=== PATIENT | male | born 1955 | race African-American/Black ===

== ENCOUNTER 2017-10-19 09:00 | Emergency (ER) | payer SELFPAY ==
[2017-10-19 09:07] VITALS: TEMP 98.5; BMI 17.3
--- NOTE | 2017-10-19 11:23 | PDOC ---
History of Present Illness - General Chief Complaint: Abscess Boil Stated Complaint: ABSCESS BOIL Time Seen by Provider: 10/19/17 11:08 History Source: Patient - History of Present Illness Initial Comments: 10/19/17 11:20 Patient with history of hypertension and recurrent abscesses present with complain of one-month history of absent to perineal area which has been draining for the past 3 days. Patient with history of pilonidal cyst 15 years ago requiring surgery. Denies history of diabetes or HIV. Denies fever, constipation, problem with bowel movement or any other symptoms Timing/Duration: other (1 month) Past History - Past Medical History Allergies/Adverse Reactions: Allergies Allergy/AdvReac Type Severity Reaction Status Date / Time No Known Allergies Allergy Verified 10/19/17 09:31 Home Medications: Ambulatory Orders Losartan Potassium [Cozaar -] 50 mg PO DAILY 12/29/15 Clindamycin [Cleocin -] 300 mg PO TID #21 capsule 10/19/17 Ibuprofen 800 mg PO Q8H PRN #20 tablet 10/19/17 Asthma: Yes COPD: No DVT: No HTN: Yes - Immunization History Immunization Up to Date: Yes - Suicide/Smoking/Psychosocial Hx Smoking Status: No Smoking History: Current every day smoker Have you smoked in the past 12 months: Yes Number of Cigarettes Smoked Daily: 10 Information on smoking cessation initiated: Yes 'Breaking Loose' booklet given: 10/19/17 Hx Alcohol Use: No Drug/Substance Use Hx: No Substance Use Type: None Review of Systems - Review of Systems Able to Perform ROS?: Yes Is the patient limited Vietnamese proficient: No Constitutional: No: Chills, Fever, Malaise HEENTM: No: Symptoms Reported Respiratory: No: Symptoms reported Cardiac (ROS): No: Symptoms Reported ABD/GI: No: Abd. Pain w/ defecation, Constipated, Nausea, Rectal Bleeding, Abdominal cramping, Tarry Stools : No: Symptoms Reported Integumentary: Yes: Lumps (abscess to b/l gluteal), Other (draining abscess to b /l gluteal areas) All Other Systems: Reviewed and Negative *Physical Exam - Vital Signs Last Vital Signs Temp Pulse Resp BP Pulse Ox 98.5 F 104 H 19 116/70 99 10/19/17 09:05 10/19/17 09:05 10/19/17 09:05 10/19/17 09:05 10/19/17 09:05 - Physical Exam Comments: 10/19/17 11:25 GENERAL: Well developed, well nourished. Awake and alert. No acute distress. NECK: Supple. Full ROM. CARDIOVASCULAR: Regular rate and rhythm. No murmurs, rubs, or gallops. PULMONARY: No evidence of respiratory distress. ABDOMINAL: Soft. Non-tender. Non-distended. No rebound or guarding. No organomegaly. Normoactive bowel sounds. SKIN: 3cm hard induration to b/l gluteal close to perineal area with mild drainage from left gluteal abscess. no erythema to area. scar tissue from previous surgery over sacral area Warm and dry. NEUROLOGICAL: Alert, awake, appropriate. PSYCHIATRIC: Cooperative. Good eye contact. Appropriate mood and affect. General Appearance: Yes: Nourished, Appropriately Dressed. No: Apparent Distress Procedures - Incision and Drainage I&D Site: Left: Perirectal (3cm tracking abscess) Betadine cleansed: Yes Anesthesia: 2% Lidocaine Volume(ml): 3 Blade Size: 11 Iodinated Packin in Plain Packing: Yes Complications: none Dressing: Yes (4 X4 gauze and adhesive tape) Progress: 10/19/17 12:54 Abscess to bilateral perirectal area clean with Betadine. Both abscesses infiltrated with 2 mL 2% lidocaine. Incision made into abscess with #11 blade. Purulent discharge from abscess from sites. Left perirectal abscess packed with 1 inch wound packing. Wound covered with 4 x 4 gauze and adhesive tape. Wound culture taken .Tolerated procedure well Medical Decision Making - Medical Decision Making 10/19/17 11:28 Patient with history of recurrent abscesses and hypertension presenting with complain of one-month history of abscess to bilateral gluteal area.exam significant for 3cm abscesses to bilateral gluteal area close to nazanin-rectal area. No erythema to site. HIV labs ordered due to recurrent abscesses to rule out HIV. 10/19/17 12:51 I&D of bilateral abscess on perirectal area done without complication. Wound packing placed in left perirectal area abscess. Right perirectal abscess doesn' t have enough cavity for wound packing. Patient given IM clindamycin in the ED and Toradol IM for pain. Patient be discharged home on clindamycin PO ABx for a week. Patient to follow-up in 3 days for packing removal and follow-up with general surgery clinic on October [address] Franko Mendoza from surgical team *DC/Admit/Observation/Transfer Diagnosis at time of Disposition: Perirectal abscess - Discharge Dispostion Disposition: HOME Condition at time of disposition: Stable Decision to Admit order: No - Prescriptions Prescriptions: Clindamycin [Cleocin -] 300 mg PO TID #21 capsule Ibuprofen 800 mg PO Q8H PRN #20 tablet PRN Reason: pain - Referrals Referrals: Franko Mendoza MD [Staff Physician] - - Patient Instructions Printed Discharge Instructions: DI for Incision and Drainage of a Skin Abscess Additional Instructions: take medications as prescribed. apply warm compress to abscess area 2-3 times/ day for 5-10mins . come back to ED in 3 days for packing removal. Follow-up apt with Dr. Franko Mendoza surgery clinic on Tuesday, call [phone] to confirm times with referred surgery clinic - Post Discharge Activity
[2017-10-19] MEDS ORDERED: CLINDAMYCIN 600MG PREMIX IVPB 600 MG/50 ML BAG IVPB ONE ×2 (11:41→12:43)
[2017-10-19] MEDS ORDERED: LIDOCAINE HCL 2% (20ML MULTI-DOSE VIAL) NR ONE (11:50)
--- NOTE | 2017-10-19 11:58 | PDOC ---
*Physical Exam - Vital Signs Last Vital Signs Temp Pulse Resp BP Pulse Ox 98.5 F 104 H 19 116/70 99 10/19/17 09:05 10/19/17 09:05 10/19/17 09:05 10/19/17 09:05 10/19/17 09:05 - Physical Exam Comments: 10/19/17 11:58 The patient was examined by [ARISTEO Machado] under my direct supervision. I personally evaluated the patient. I concur with the above findings and the plan of care.
[2017-10-19] MEDS ORDERED: KETOROLAC TROMETHAMINE 60 MG/2 ML VIAL IM ONE (12:42)
[2017-10-19] MEDS ORDERED: KETOROLAC TROMETHAMINE 60 MG/2 ML VIAL ONE (12:49)
[2017-10-19 13:09] VITALS: BP 135/92; PULSE 90
== END 2017-10-19 13:30 | disposition home or self-care (01) ==
LOC: JER 09:00
PROC: 0H99XZZ Drainage of Perineum Skin, External Approach (ICD-10-PCS; principal; 2017-10-19)
PROC: 3E03329 Introduction of Other Anti-infective into Peripheral Vein, Percutaneous Approach (ICD-10-PCS; 2017-10-19)
PROC: 3E0233Z Introduction of Anti-inflammatory into Muscle, Percutaneous Approach (ICD-10-PCS; 2017-10-19)
DX: L02.215 Cutaneous abscess of perineum (principal); F17.210 Nicotine dependence, cigarettes, uncomplicated; J45.909 Unspecified asthma, uncomplicated; I10 Essential (primary) hypertension
CPT/HCPCS: 36415; 87070; 87076; 87077; 87186; 87205; 87389; 99282-25

== ENCOUNTER 2018-06-10 13:15 | Observation (INO) | payer MEDICARE ==
[2018-06-10] MEDS ORDERED: SODIUM CHLORIDE 2,000 ML IV STA (13:40)
--- NOTE | 2018-06-10 13:44 | PDOC ---
History of Present Illness - General Chief Complaint: Diarrhea Stated Complaint: DIARRHEA Time Seen by Provider: 06/10/18 13:38 - History of Present Illness Initial Comments: 06/10/18 13:40 62 yo M with h/o heroin addiction with withdrawal, HTN who p/w diarrhea. Patient reports 5 days of loose, watery stools, with absent BPR x 6 per day. Also endorses decreased appetite, and PO intake. Denies recent sick contacts, change in diet, travels/hiking/camping. No other complaints. Denies medication for symptom control. Reports wt. loss 30 pounds in 3 months. Patient denies AQUINO, vision change, palpitations, cough, wheezing, orthopena, PND , leg swelling/pain, N/V, F,C, CP, SOB, urinary complaints, hematuria, BPR, abdominal pain, constipation, lightheadedness, weakness, sensory changes. PMHx: as noted above ROS: as noted SHx: Distant heroin use. Denies h/o IVDA. H/o tobacco use daily. Allergies: NKDA PMD: Napqvi Past History - Past Medical History Allergies/Adverse Reactions: Allergies Allergy/AdvReac Type Severity Reaction Status Date / Time No Known Allergies Allergy Verified 06/10/18 13:19 Home Medications: Ambulatory Orders Losartan Potassium [Cozaar -] 50 mg PO DAILY 12/29/15 Asthma: Yes COPD: No DVT: No HTN: Yes - Immunization History Immunization Up to Date: Yes - Suicide/Smoking/Psychosocial Hx Smoking Status: No Smoking History: Current every day smoker Have you smoked in the past 12 months: Yes Number of Cigarettes Smoked Daily: 10 Information on smoking cessation initiated: No 'Breaking Loose' booklet given: 10/19/17 Hx Alcohol Use: No Drug/Substance Use Hx: No Substance Use Type: None Review of Systems - Review of Systems Comments:: 06/10/18 13:42 GENERAL/CONSTITUTIONAL: No fever or chills. No weakness. HEAD, EYES, EARS, NOSE AND THROAT: No change in vision. No ear pain or discharge. No sore throat. CARDIOVASCULAR: No chest pain or shortness of breath RESPIRATORY: No cough, wheezing, or hemoptysis. GASTROINTESTINAL: + diarrhea. No nausea, vomiting, constipation. GENITOURINARY: No dysuria, frequency, or change in urination. MUSCULOSKELETAL: No joint or muscle swelling or pain. No neck or back pain. SKIN: No rash NEUROLOGIC: No headache, vertigo, loss of consciousness, or change in strength/ sensation. ENDOCRINE: +abnormal weight change. No increased thirst. HEMATOLOGIC/LYMPHATIC: No anemia, easy bleeding, or history of blood clots. ALLERGIC/IMMUNOLOGIC: No hives or skin allergy. *Physical Exam - Vital Signs Last Vital Signs Temp Pulse Resp BP Pulse Ox 97.8 F 139 H 22 H 90/60 98 06/10/18 13:26 06/10/18 13:26 06/10/18 13:26 06/10/18 13:06/10/18 13:26 - Physical Exam Comments: 06/10/18 13:42 GENERAL: Awake, alert, and fully oriented, in no acute distress HEAD: No signs of trauma, normocephalic, atraumatic EYES: PERRLA, EOMI, sclera anicteric, conjunctiva clear ENT: Dry mucosu membranes, conjuctival pallor. Auricles normal inspection, hearing grossly normal, nares patent, oropharynx clear without exudates. NECK: Normal ROM, supple, no lymphadenopathy, JVD, or masses LUNGS: No distress, speaks full sentences, clear to auscultation bilaterally HEART: Regular rate and rhythm, normal S1 and S2, no murmurs, rubs or gallops, peripheral pulses normal and equal bilaterally. ABDOMEN: hyperactive bowel sounds. Soft, nontender, NDS. No guarding, no rebound. No masses. Neg CVA ttp. EXTREMITIES : Normal inspection, Normal range of motion, no edema. No clubbing or cyanosis. NEUROLOGICAL: Cranial nerves II through XII grossly intact. Normal speech, normal gait, no focal sensorimotor deficits SKIN: Warm, Dry, normal turgor, no rashes or lesions noted ED Treatment Course - LABORATORY CBC & Chemistry Diagram: 06/10/18 13:30 06/10/18 13:30 Medical Decision Making - Medical Decision Making 06/10/18 13:55 62 yo M with h/o heroin addiction with withdrawal, HTN who p/w diarrhea. Patient reports 5 days of loose, watery stools, with absent BPR x 6 per day. HR 139, BP 90/60, AF, A&Ox3. Denies cough, wheezing, N/V, F,C, CP, SOB, urinary complaints, hematuria, BPR, abdominal pain, lightheadedness, weakness, sensory changes. Physical exam notable for dry mucous membranes, hyperactive bowel sounds. Possible gastroentieritis, vs. biliary dz. pancreatitis, colitis, malabsorption. No other evidence of heroin withdrawal (myalgias, rhinorrhea, lacrimation, mydriasis, piloerection).Patient with clinical s/s dehydration. Will assess for hypoglycemia, electrolyte abnml, metabolic and toxic derangements, acid-base disturbances, infection. will provide adequate fluid resuscitation and reassess. Ed Course: NS 2L EKG: NSR with absent CRYSTAL, STD. Nml interval duration and axis. 06/10/18 14:58 Laboratory Tests 06/10/18 06/10/18 13:30 13:30 WBC 13.6 H Hgb 11.7 Hct 36.8 D Plt Count 409 D Potassium 3.7 BUN 14 Creatinine 1.5 H 06/10/18 15:01 Pt. with ELAN,baseline Cr 1.0 hypovolemic shock Pt. endorsed to Dr. Gonzales. Admit med/surg *DC/Admit/Observation/Transfer Diagnosis at time of Disposition: ELAN (acute kidney injury), Dehydration, Hypovolemic shock Diarrhea Qualifiers: Diarrhea type: unspecified type Qualified Code(s): R19.7 - Diarrhea, unspecified - Discharge Dispostion Condition at time of disposition: Stable Decision to Admit order: Yes - Referrals - Patient Instructions Additional Instructions: Please return to the emergency department with any new or worsening symptoms or concerns. Please follow up with your primary care physician within 72 hours. - Post Discharge Activity
[2018-06-10 14:08] LABS: BASO % 0.4 % (0-2.0); EOS % 1.9 % (0-4.5); HEMATOCRIT 36.8 % (35.4-49); HEMOGLOBIN 11.7 GM/dL (11.7-16.9); LYMPH % 13.7 % (8-40); MCH 27.6 pg (25.7-33.7); MCHC 31.8 g/dl (32.0-35.9); MEAN CELL VOLUME 86.6 fl (80-96); MEAN PLT VOLUME 6.9 fl (7.5-11.1); MONO % 11.7 % (3.8-10.2); NEUT % 72.3 % (42.8-82.8); PLATELET COUNT 409 K/MM3 (134-434); RBC 4.25 M/mm3 (4.00-5.60); RDW 15.5 % (11.9-15.9); WHITE BLOOD COUNT 13.6 K/mm3 (4.0-10.0)
[2018-06-10 14:29] LABS: LIPASE 57 U/L (73-393)
[2018-06-10 14:42] LABS: ALBUMIN 2.5 g/dl (3.4-5.0); ALK PHOS 125 U/L (45-117); ANION GAP 8 MMOL/L (8-16); BILIRUBIN,TOTAL 0.3 mg/dL (0.2-1); BLOOD UREA NITROGEN 14 mg/dL (7-18); CALCIUM 8.3 mg/dL (8.5-10.1); CHLORIDE 105 mmol/L (98-107); CO2 23 mmol/L (21-32); CREATININE 1.5 mg/dL (0.55-1.3); GLUCOSE,RANDOM 127 mg/dL (74-106); POTASSIUM 3.7 mmol/L (3.5-5.1); SGOT/AST 11 U/L (15-37); SGPT/ALT 9 U/L (13-61); SODIUM 136 mmol/L (136-145); TOT PROT 8.7 g/dl (6.4-8.2)
--- NOTE | 2018-06-10 14:57 | PDOC ---
Documentation entered by Leticia Duggan SCRIBE, acting as scribe for Johny Gloria MD. Johny Gloria MD: This documentation has been prepared by the Olga Lidia cain Sammi, SCRIBE, under my direction and personally reviewed by me in its entirety. I confirm that the documentation accurately reflects all work, treatment, procedures, and medical decision making performed by me. Attending Attestation - Resident Resident Name: Kumar Samuelson - ED Attending Attestation I have performed the following: I have examined & evaluated the patient, The case was reviewed & discussed with the resident, I agree w/resident's findings & plan - HPI HPI: 06/10/18 14:51 62-year-old male history of hypertension, 30 year smoking history, former opiate use presents with 6 days of painless watery diarrhea. 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 Reports 6-7 episodes daily of watery nonbloody diarrhea without any abdominal pain or cramping, no fevers or chills, has been feeling weaker and more lightheaded given decreased oral intake over this time. No history of endoscopy or colonoscopy, no surgical history in the abdomen, denies any recurring GI history. On review of systems, had about 30 pound weight loss over the last 3 months. - Physicial Exam PE: 06/10/18 14:52 Tachycardic and hypotensive at triage, now alert seated in stretcher in full sentences in no acute distress No jaundice or pallor, dry mucous membranes No palpable lymphoid masses Course breath sounds at the right base, otherwise clear with good air entry Heart is regular slight tachycardia Abdomen is benign, soft/nontender/nondistended without palpable mass Neurologically intact - Medical Decision Making 06/10/18 14:53 62-year-old male with history of hypertension and extensive smoking history presents with 6 days of watery nonbloody diarrhea in the setting of 30 pound weight loss over the last few months, severely dehydrated with hypovolemic shock at triage, r/o endorgan injury/ARF, now improving after IV fluid resuscitation. Check labs, urinalysis Chest x-ray, EKG IV fluid resuscitation Reassess, likely admission Heart Score/ECG Review #1 ECG reviewed & interpreted by me at: 14:02 General ECG Interpretation: Sinus Rhythm, Normal Rate (101), Normal Intervals ( qtc 474), No acute ischemic changes (peak T wave in V3)
--- NOTE | 2018-06-10 15:52 | HP ---
Admitting History and Physical - Primary Care Physician PCP: Mary Ha - Admission Chief Complaint: I have diarrhea History of Present Illness: Mr March is a pleasant 62 year old male who comes in with complaints of watery diarrhea. He says he was in his normal state of health until Tuesday. Tuesday he began to have slight abdominal pain and watery diarrhea. He said it was mainly liquid with slight amount of formed stool. He says he was going up to 6-7 times a day. He was unable to eat because of this and was taking less liquid in as well. It was not getting better so he came to the ER. Here he currently has not had any stools. He denies recent travel. He does not think he ate anything that was spoiled. 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 He also says he notes he has been losing weight, he has had an unintentional weight loss of 30lbs. He denies fevers, chills, lightheadedness, dizziness, chest pain or pressure, shortness of breath, nausea , vomiting, difficulty or pain on urination, or leg swelling. History Source: Patient Limitations to Obtaining History: No Limitations - Past Medical History Cardiovascular: Yes: HTN - Past Surgical History Additional Past Surgical History: femur repair - Smoking History Smoking history: Current every day smoker Have you smoked in the past 12 months: Yes Aproximately how many cigarettes per day: 10 - Alcohol/Substance Use Hx Alcohol Use: No History of Substance Use: reports: Heroin - Social History Usual Living Arrangement: Yes: With Parent ADL: Independent History of Recent Travel: No Home Medications - Allergies Allergies/Adverse Reactions: Allergies Allergy/AdvReac Type Severity Reaction Status Date / Time No Known Allergies Allergy Verified 06/10/18 13:19 - Home Medications Home Medications: Ambulatory Orders Losartan Potassium [Cozaar -] 50 mg PO DAILY 12/29/15 Family Disease History - Family Disease History Family Disease History: Diabetes: Mother, Heart Disease: Father Review of Systems Findings/Remarks: Full review of systems obtained, as per HPI and otherwise negative Physical Examination Vital Signs: Vital Signs Temperature 36.6 C 06/10/18 13:26 Pulse Rate 139 H 06/10/18 13:26 Respiratory Rate 22 H 06/10/18 13:26 Blood Pressure 90/60 06/10/18 13:26 O2 Sat by Pulse Oximetry (%) 98 06/10/18 13:26 Constitutional: Yes: No Distress, Calm, Thin Eyes: Yes: Conjunctiva Clear, EOM Intact, PERRL HENT: Yes: Atraumatic, Normocephalic Cardiovascular: Yes: Regular Rate and Rhythm. No: Gallop, Murmur, Rub Respiratory: Yes: Regular, CTA Bilaterally. No: Rales, Rhonchi, Wheezes Gastrointestinal: Yes: Normal Bowel Sounds, Soft. No: Distention, Tenderness Extremities: Yes: WNL Edema: No Labs: CBC, BMP 06/10/18 13:30 06/10/18 13:30 Imaging - Results Cat Scan: Image Reviewed Problem List - Problems (1) Diarrhea Assessment/Plan: -unclear cause -admit under observation -hydration with IVF -send stool studies including c diff Code(s): R19.7 - DIARRHEA, UNSPECIFIED Qualifiers: Diarrhea type: unspecified type Qualified Code(s): R19.7 - Diarrhea, unspecified (2) ELAN (acute kidney injury) Assessment/Plan: -secondary to dehydration/hypovolemia from diarrhea -aggressive hydration -hold losartan Code(s): N17.9 - ACUTE KIDNEY FAILURE, UNSPECIFIED (3) Hypovolemic shock Assessment/Plan: -hydration with IVF -hold losartan Code(s): R57.1 - HYPOVOLEMIC SHOCK (4) HTN (hypertension) Assessment/Plan: -hypotensive -as above Code(s): I10 - ESSENTIAL (PRIMARY) HYPERTENSION Qualifiers: Hypertension type: essential hypertension Qualified Code(s): I10 - Essential (primary) hypertension (5) Heroin addiction Assessment/Plan: -monitor Code(s): F11.20 - OPIOID DEPENDENCE, UNCOMPLICATED (6) Weight loss Assessment/Plan: -unintentional -will check chest CT -hold on A/P until diarrhea improved, will need contrast which will worsen renal function and diarrhea Code(s): R63.4 - ABNORMAL WEIGHT LOSS
[2018-06-10] MEDS: SODIUM CHLORIDE 1,000 ML IV SCH ×2 (16:15→21:55)
[2018-06-10 16:32] LABS: EPI CELLS 6.2 /HPF (0-5/HPF); URINE APPEARANCE CLEAR; URINE BACTERIA 2.4 /hpf (NEGATIVE); URINE BILIRUBIN NEGATIVE (NEGATIVE); URINE CASTS 27 /lpf (0-8); URINE COLOR YELLOW; URINE GLUCOSE (UA) NEGATIVE (NEGATIVE); URINE KETONE TRACE (NEGATIVE); URINE LEUK ESTERASE TRACE (NEGATIVE); URINE NITRITE NEGATIVE (NEGATIVE); URINE PROTEIN 2+ (NEGATIVE); URINE RBC 12 /hpf (0-4); URINE UROBILINOGEN 0.2 mg/dL (0.2-1.0); URINE WBC 4 /hpf (0-5)
[2018-06-10 18:23] VITALS: BMI 18.7
[2018-06-11] MEDS: SODIUM CHLORIDE 1,000 ML IV SCH ×2 (05:03→17:50)
[2018-06-11 08:07] LABS: BASO % 0.4 % (0-2.0); HEMATOCRIT 28.7 % (35.4-49); HEMOGLOBIN 9.4 GM/dL (11.7-16.9); LYMPH % 13.1 % (8-40); MCH 28.4 pg (25.7-33.7); MCHC 32.9 g/dl (32.0-35.9); MEAN CELL VOLUME 86.2 fl (80-96); MEAN PLT VOLUME 6.6 fl (7.5-11.1); MONO % 11.9 % (3.8-10.2); NEUT % 70.6 % (42.8-82.8); PLATELET COUNT 285 K/MM3 (134-434); RBC 3.33 M/mm3 (4.00-5.60); RDW 15.4 % (11.9-15.9); WHITE BLOOD COUNT 10.1 K/mm3 (4.0-10.0)
[2018-06-11 09:06] LABS: ALBUMIN 1.9 g/dl (3.4-5.0); ALK PHOS 90 U/L (45-117); ANION GAP 6 MMOL/L (8-16); BILIRUBIN,TOTAL 0.4 mg/dL (0.2-1); BLOOD UREA NITROGEN 12 mg/dL (7-18); CALCIUM 7.6 mg/dL (8.5-10.1); CHLORIDE 111 mmol/L (98-107); CO2 25 mmol/L (21-32); CREATININE 1.1 mg/dL (0.55-1.3); GLUCOSE,RANDOM 76 mg/dL (74-106); MAGNESIUM 1.8 mg/dL (1.8-2.4); PHOSPHOROUS 2.8 mg/dL (2.5-4.9); POTASSIUM 4.3 mmol/L (3.5-5.1); SGOT/AST 9 U/L (15-37); SGPT/ALT < 6 U/L (13-61); SODIUM 142 mmol/L (136-145); TOT PROT 6.3 g/dl (6.4-8.2)
--- NOTE | 2018-06-11 09:20 | EKG ---
Test Reason : Blood Pressure : / mmHG Vent. Rate : 101 BPM Atrial Rate : 101 BPM P-R Int : 128 ms QRS Dur : 090 ms QT Int : 366 ms P-R-T Axes : 075 055 065 degrees QTc Int : 474 ms SINUS TACHYCARDIA POSSIBLE LEFT ATRIAL ENLARGEMENT BORDERLINE ECG WHEN COMPARED WITH ECG OF 03-JAN-2016 14:58, T WAVE INVERSION NO LONGER EVIDENT IN ANTERIOR LEADS Confirmed by ADRY PEREZ, MIKE ([id number]) on 06/11/2018 9:19:57 AM Referred By: Confirmed By:MIKE RIDER MD
--- NOTE | 2018-06-11 13:13 | PN ---
Progress Note, Physician Chief Complaint: Still with diarrhea. Denies cp, sob, n/v. - Current Medication List Current Medications: Active Medications Sodium Chloride (Normal Saline -) 1,000 mls @ 125 mls/hr IV ASDIR CHAITANYA Last Admin: 06/11/18 05:03 Dose: 125 mls/hr Vancomycin HCl (Vancomycin Oral Solution) 250 mg PO Q6HPO CHAITANYA - Objective Vital Signs: Vital Signs Temperature 37.0 C 06/11/18 10:00 Pulse Rate 78 06/11/18 10:00 Respiratory Rate 20 06/11/18 10:00 Blood Pressure 104/55 L 06/11/18 10:00 O2 Sat by Pulse Oximetry (%) 98 06/10/18 16:15 Constitutional: Yes: No Distress, Calm, Thin Cardiovascular: Yes: Regular Rate and Rhythm. No: Gallop, Murmur, Rub Respiratory: Yes: Regular, CTA Bilaterally. No: Rales, Rhonchi, Wheezes Gastrointestinal: Yes: Normal Bowel Sounds, Soft. No: Distention, Tenderness Extremities: Yes: WNL Edema: No Labs: CBC, BMP 06/11/18 07:28 06/11/18 07:28 Problem List - Problems (1) Diarrhea Code(s): R19.7 - DIARRHEA, UNSPECIFIED Qualifiers: Diarrhea type: unspecified type Qualified Code(s): R19.7 - Diarrhea, unspecified (2) ELAN (acute kidney injury) Code(s): N17.9 - ACUTE KIDNEY FAILURE, UNSPECIFIED (3) Hypovolemic shock Code(s): R57.1 - HYPOVOLEMIC SHOCK (4) HTN (hypertension) Code(s): I10 - ESSENTIAL (PRIMARY) HYPERTENSION Qualifiers: Hypertension type: essential hypertension Qualified Code(s): I10 - Essential (primary) hypertension (5) Heroin addiction Code(s): F11.20 - OPIOID DEPENDENCE, UNCOMPLICATED (6) Weight loss Code(s): R63.4 - ABNORMAL WEIGHT LOSS Assessment/Plan (1) Diarrhea Assessment/Plan: -secondary to c diff -begin oral vancomycin Code(s): R19.7 - DIARRHEA, UNSPECIFIED Qualifiers: Diarrhea type: unspecified type Qualified Code(s): R19.7 - Diarrhea, unspecified (2) ELAN (acute kidney injury) Assessment/Plan: -resolving -continue IVF and holding losartan Code(s): N17.9 - ACUTE KIDNEY FAILURE, UNSPECIFIED (3) Hypovolemic shock Assessment/Plan: -as above Code(s): R57.1 - HYPOVOLEMIC SHOCK (4) HTN (hypertension) Assessment/Plan: -hypotensive -as above Code(s): I10 - ESSENTIAL (PRIMARY) HYPERTENSION Qualifiers: Hypertension type: essential hypertension Qualified Code(s): I10 - Essential (primary) hypertension (5) Heroin addiction Assessment/Plan: -monitor Code(s): F11.20 - OPIOID DEPENDENCE, UNCOMPLICATED (6) Weight loss Assessment/Plan: -unintentional -awaiting CT read, ? pleural masses bilaterally -if diarrhea and renal function improves, possible CT A/P with contrast tomorrow Code(s): R63.4 - ABNORMAL WEIGHT LOSS
[2018-06-11] MEDS ORDERED: PT OWN MED DRAWER 7, Y5N ONE (14:38)
[2018-06-11] MEDS: VANCOMYCIN 250 MG/5 ML ORAL SOLUTION PO SCH ×3 (15:01→23:35)
[2018-06-12] MEDS: SODIUM CHLORIDE 1,000 ML IV SCH ×3 (02:47→19:24)
[2018-06-12] MEDS: VANCOMYCIN 250 MG/5 ML ORAL SOLUTION PO SCH ×3 (05:19→17:52)
[2018-06-12 07:51] LABS: BASO % 0.5 % (0-2.0); EOS % 3.7 % (0-4.5); HEMATOCRIT 29.9 % (35.4-49); HEMOGLOBIN 9.8 GM/dL (11.7-16.9); LYMPH % 14.2 % (8-40); MCH 28.6 pg (25.7-33.7); MCHC 32.8 g/dl (32.0-35.9); MEAN CELL VOLUME 87.2 fl (80-96); MEAN PLT VOLUME 6.9 fl (7.5-11.1); MONO % 10.6 % (3.8-10.2); PLATELET COUNT 263 K/MM3 (134-434); RBC 3.43 M/mm3 (4.00-5.60); RDW 15.4 % (11.9-15.9); WHITE BLOOD COUNT 9.3 K/mm3 (4.0-10.0)
[2018-06-12 08:21] LABS: ANION GAP 4 MMOL/L (8-16); BLOOD UREA NITROGEN 8 mg/dL (7-18); CALCIUM 7.7 mg/dL (8.5-10.1); CHLORIDE 108 mmol/L (98-107); CO2 27 mmol/L (21-32); CREATININE 0.9 mg/dL (0.55-1.3); GLUCOSE,RANDOM 69 mg/dL (74-106); MAGNESIUM 1.7 mg/dL (1.8-2.4); PHOSPHOROUS 2.7 mg/dL (2.5-4.9); POTASSIUM 4.3 mmol/L (3.5-5.1); SODIUM 139 mmol/L (136-145)
[2018-06-12] MEDS ORDERED: MAGNESIUM SULF 50% (8.12 MEQ/2 ML-1 GM VIAL) IVPB ONE (09:45)
[2018-06-12] MEDS: ACETAMINOPHEN 325 MG TABLET (FP) PO PRN (11:47)
[2018-06-12] MEDS ORDERED: METHADONE HCL 5 MG TABLET PO SCH (13:00)
[2018-06-12] MEDS: METHADONE HCL 5 MG TABLET PO SCH (13:53)
--- NOTE | 2018-06-12 16:53 | PN ---
Teaching Attending Note Name of Resident: Reymundo Wheeler ATTENDING PHYSICIAN STATEMENT I saw and evaluated the patient. I reviewed the resident's note and discussed the case with the resident. I agree with the resident's findings and plan as documented. SUBJECTIVE: Mr March says he is feeling better today. No cp, sob, n/v. Says diarrhea has resolved. Complaining of withdrawal from heroin and is not interested in rehab OBJECTIVE: Last Vital Signs Temp Pulse Resp BP Pulse Ox 36.9 C 75 18 121/74 100 06/12/18 09:35 06/12/18 09:35 06/12/18 09:35 06/12/18 09:35 06/11/18 23:27 Gen: nad, thin Pulm: ctab w/o w/r/r CV: rrr w/o m/r/g Abd: +bs, s/nt/nd Ext: no c/c/e CBC, BMP 06/12/18 06:30 06/12/18 06:30 ASSESSMENT AND PLAN: (1) Diarrhea Assessment/Plan: -improved on oral vancomycin -CT scan showing lots of stool in colon per my unofficial read -? constipation with overflow, however that would be very unusual in that it should not cause hypotension or ELAN -await official read Code(s): R19.7 - DIARRHEA, UNSPECIFIED Qualifiers: Diarrhea type: unspecified type Qualified Code(s): R19.7 - Diarrhea, unspecified (2) ELAN (acute kidney injury) Assessment/Plan: -resolved -continue IVF and holding losartan since received contrast Code(s): N17.9 - ACUTE KIDNEY FAILURE, UNSPECIFIED (3) Hypovolemic shock Assessment/Plan: -resolved Code(s): R57.1 - HYPOVOLEMIC SHOCK (4) HTN (hypertension) Assessment/Plan: -resolved Code(s): I10 - ESSENTIAL (PRIMARY) HYPERTENSION Qualifiers: Hypertension type: essential hypertension Qualified Code(s): I10 - Essential (primary) hypertension (5) Heroin addiction Assessment/Plan: -place on low dose daily methadone Code(s): F11.20 - OPIOID DEPENDENCE, UNCOMPLICATED (6) Weight loss Assessment/Plan: -unintentional -CT scan read showing pleural thickening -CT scan A/P done today with large AAA (per my unofficial read) -will await official read but concerning Mr March has significant pathology Code(s): R63.4 - ABNORMAL WEIGHT LOSS (7) AAA -vascular surgery consult Problem List - Problems (1) Diarrhea Code(s): R19.7 - DIARRHEA, UNSPECIFIED Qualifiers: Diarrhea type: unspecified type Qualified Code(s): R19.7 - Diarrhea, unspecified (2) ELAN (acute kidney injury) Code(s): N17.9 - ACUTE KIDNEY FAILURE, UNSPECIFIED (3) Hypovolemic shock Code(s): R57.1 - HYPOVOLEMIC SHOCK (4) HTN (hypertension) Code(s): I10 - ESSENTIAL (PRIMARY) HYPERTENSION Qualifiers: Hypertension type: essential hypertension Qualified Code(s): I10 - Essential (primary) hypertension (5) Heroin addiction Code(s): F11.20 - OPIOID DEPENDENCE, UNCOMPLICATED (6) Weight loss Code(s): R63.4 - ABNORMAL WEIGHT LOSS (7) AAA (abdominal aortic aneurysm) Code(s): I71.4 - ABDOMINAL AORTIC ANEURYSM, WITHOUT RUPTURE
--- NOTE | 2018-06-12 17:40 | PN ---
Physical Exam: SUBJECTIVE: Patient seen and examined at bedside. Feels better. Had soft but formed stool this AM at 8am and has decreased frequency of BMs. No other complaints at this time. OBJECTIVE: Vital Signs Temperature 98.4 F 06/12/18 09:35 Pulse Rate 75 06/12/18 09:35 Respiratory Rate 18 06/12/18 09:35 Blood Pressure 121/74 06/12/18 09:35 O2 Sat by Pulse Oximetry (%) 100 06/11/18 23:27 GENERAL: The patient is awake, alert, and fully oriented, in no acute distress. EYES: extraocular movements intact, sclera anicteric, conjunctiva clear. LUNGS: Breath sounds equal, clear to auscultation bilaterally HEART: Regular rate and rhythm, S1, S2. ABDOMEN: Soft, nontender, nondistended, normoactive bowel sounds EXTREMITIES: warm, well-perfused, no edema. NEUROLOGICAL: Cranial nerves II through XII grossly intact. Normal speech, normal gait. PSYCH: Normal mood, normal affect. SKIN: Warm, dry Laboratory Results - last 24 hr 06/12/18 06/12/18 06:30 06:30 WBC 9.3 RBC 3.43 L Hgb 9.8 L Hct 29.9 L MCV 87.2 MCH 28.6 MCHC 32.8 RDW 15.4 Plt Count 263 MPV 6.9 L Absolute Neuts (auto) 6.6 Neutrophils % 71.0 Lymphocytes % 14.2 Monocytes % 10.6 H Eosinophils % 3.7 Basophils % 0.5 Nucleated RBC % 0 Sodium 139 Potassium 4.3 Chloride 108 H Carbon Dioxide 27 Anion Gap 4 L BUN 8 Creatinine 0.9 Creat Clearance w eGFR 85.23 Random Glucose 69 L Calcium 7.7 L Phosphorus 2.7 Magnesium 1.7 L Active Medications Generic Name Dose Route Start Last Admin Trade Name Freq PRN Reason Stop Dose Admin Acetaminophen 650 mg 06/12/18 11:24 06/12/18 11:47 Tylenol - PO 650 mg Q4H PRN Administration HEADACHE Sodium Chloride 1,000 mls @ 125 mls/hr 06/10/18 16:00 06/12/18 10:02 Normal Saline - IV 125 mls/hr ASDIR CHAITANYA Administration Methadone HCl 20 mg 06/12/18 13:45 06/12/18 13:53 Dolophine - PO 20 mg DAILY@0600 CHAITANYA Administration Vancomycin HCl 250 mg 06/11/18 12:50 06/12/18 11:47 Vancomycin Oral Solution PO 250 mg Q6HPO CHAITANYA Administration ASSESSMENT/PLAN: 62 y/o M w/PMH HTN and heroin abuse presented to the ER with diarrhea and found to have C. Diff colitis. -C. Diff colitis -c/w po vanco -CT abd read -improving -f/u stool ova and parasite, stool cultures -f/u pelvic/bladder U/S -ELAN -resolved -c/w NS @ 125 ml/hr s/p contrast -HTN -losartan held -Heroin abuse -started on methadone 20mg po qd -Unintentional weight loss -f/u CT A/P -Aortic aneurysm -f/u CT A/P -will consult vascular surgery -DVT ppx -EAM -FEN -NS @ 125 ml/hr -Mg repleted. Monitor electrolytes -Regular diet -Dispo: Monitor on floors Visit type - Emergency Visit Emergency Visit: Yes ED Registration Date: 06/10/18 Care time: The patient presented to the Emergency Department on the above date and was hospitalized for further evaluation of their emergent condition. - New Patient This patient is new to me today: Yes Date on this admission: 06/12/18 - Critical Care Critical Care patient: No
[2018-06-13] MEDS: VANCOMYCIN 250 MG/5 ML ORAL SOLUTION PO SCH ×4 (00:29→18:32)
[2018-06-13] MEDS: METHADONE HCL 5 MG TABLET PO SCH (05:42)
[2018-06-13] MEDS: ACETAMINOPHEN 325 MG TABLET (FP) PO PRN (06:14)
[2018-06-13 07:43] LABS: BASO % 0.5 % (0-2.0); EOS % 0.4 % (0-4.5); HEMOGLOBIN 9.9 GM/dL (11.7-16.9); LYMPH % 7.4 % (8-40); MCH 28.2 pg (25.7-33.7); MEAN CELL VOLUME 85.5 fl (80-96); MEAN PLT VOLUME 7.2 fl (7.5-11.1); MONO % 14.1 % (3.8-10.2); NEUT % 77.6 % (42.8-82.8); PLATELET COUNT 222 K/MM3 (134-434); RBC 3.51 M/mm3 (4.00-5.60); RDW 15.5 % (11.9-15.9)
[2018-06-13 08:11] LABS: WHITE BLOOD COUNT 12.9 K/mm3 (4.0-10.0)
[2018-06-13 08:48] LABS: ALBUMIN 1.9 g/dl (3.4-5.0); ANION GAP 9 MMOL/L (8-16); BLOOD UREA NITROGEN 7 mg/dL (7-18); CALCIUM 7.4 mg/dL (8.5-10.1); CHLORIDE 103 mmol/L (98-107); CO2 23 mmol/L (21-32); CREATININE 0.9 mg/dL (0.55-1.3); GLUCOSE,RANDOM 90 mg/dL (74-106); MAGNESIUM 1.7 mg/dL (1.8-2.4); PHOSPHOROUS 2.9 mg/dL (2.5-4.9); POTASSIUM 3.4 mmol/L (3.5-5.1); SODIUM 135 mmol/L (136-145)
[2018-06-13] MEDS ORDERED: POTASSIUM CHLORIDE TABS 20 MEQ TABLET.ER (FP) PO ONE (09:30)
[2018-06-13] MEDS ORDERED: MAGNESIUM SULF 50% (8.12 MEQ/2 ML-1 GM VIAL) IVPB ONE (09:30)
[2018-06-13] MEDS: SODIUM CHLORIDE 1,000 ML IV SCH (10:48)
[2018-06-13 12:01] LABS: ANISOCYTOSIS 0; MACROCYTOSIS 0; PLATELET ESTIMATE NORMAL
--- NOTE | 2018-06-13 12:31 | PN ---
Physical Exam: SUBJECTIVE: Patient seen and examined at bedside. Feels the best he has since coming in today. He had multiple loose/watery BMs from 10PM to 1AM last night but has not had a BM since then. He is tolerating his diet well and denies abd pain, fevers, chills, nausea, vomiting. OBJECTIVE: Vital Signs Temperature 98.3 F 06/13/18 09:00 Pulse Rate 78 06/13/18 09:00 Respiratory Rate 18 06/13/18 09:00 Blood Pressure 120/70 06/13/18 09:00 O2 Sat by Pulse Oximetry (%) 99 06/13/18 09:00 GENERAL: The patient is awake, alert, and fully oriented, in no acute distress. EYES: extraocular movements intact, sclera anicteric, conjunctiva clear. LUNGS: Breath sounds equal, clear to auscultation bilaterally HEART: Regular rate and rhythm, S1, S2. ABDOMEN: Soft, nontender, nondistended, normoactive bowel sounds EXTREMITIES: warm, well-perfused, no edema. NEUROLOGICAL: Cranial nerves II through XII grossly intact. Normal speech, normal gait. PSYCH: Normal mood, normal affect. SKIN: Warm, dry Laboratory Results - last 24 hr 06/13/18 06/13/18 06:30 06:30 WBC 12.9 H RBC 3.51 L Hgb 9.9 L Hct 30.0 L MCV 85.5 MCH 28.2 MCHC 33.0 RDW 15.5 MPV 7.2 L Absolute Neuts (auto) 8.9 H Neutrophils % 77.6 Lymphocytes % 7.4 L D Monocytes % 14.1 H Eosinophils % 0.4 D Basophils % 0.5 Nucleated RBC % 0 Sodium 135 L Potassium 3.4 L Chloride 103 Carbon Dioxide 23 Anion Gap 9 BUN 7 Creatinine 0.9 Creat Clearance w eGFR 85.23 Random Glucose 90 Calcium 7.4 L Phosphorus 2.9 Magnesium 1.7 L Albumin 1.9 L Active Medications Generic Name Dose Route Start Last Admin Trade Name Freq PRN Reason Stop Dose Admin Acetaminophen 650 mg 06/12/18 11:24 06/13/18 06:14 Tylenol - PO 650 mg Q4H PRN Administration HEADACHE Sodium Chloride 1,000 mls @ 125 mls/hr 06/10/18 16:00 06/13/18 10:48 Normal Saline - IV 125 mls/hr ASDIR CHAITANYA Administration Methadone HCl 20 mg 06/12/18 13:45 06/13/18 05:42 Dolophine - PO 20 mg DAILY@0600 CHAITANYA Administration Vancomycin HCl 250 mg 06/11/18 12:50 06/13/18 05:42 Vancomycin Oral Solution PO 250 mg Q6HPO CHAITANYA Administration ASSESSMENT/PLAN: 62 y/o M w/PMH HTN and heroin abuse presented to the ER with diarrhea and found to have C. Diff colitis. -C. Diff colitis -c/w po vanco -CT abd /pelvis: focal aneurysm dilatation of distal thoracic aorta 4.1cm. Short segment of aneurysmal dilatation of infrarenal abd aorta 5.5cm. Hepatomegaly 20 cm. Multiple lesions in the liver likely cysts. Multiple b/l kidney cysts Ileus in small bowel Large cyst at sacrum (S2) 2.5x3.8 cm with chronic mass effect on the surrounding bone. -WBC elevated today, will continue to monitor. Clinically improving. -f/u stool ova and parasite, stool cultures -f/u pelvic/bladder U/S -ELAN -resolved -HTN -losartan held -Heroin abuse -started on methadone 20mg po qd -Unintentional weight loss -no possible malignancies noted on CT AP. -Aortic aneurysm -CT abd /pelvis: focal aneurysm dilatation of distal thoracic aorta 4.1cm. Short segment of aneurysmal dilatation of infrarenal abd aorta 5.5cm. -vascular surgery consulted -DVT ppx -EAM -FEN -Stopping fluids -Mg repleted. Monitor electrolytes -Regular diet -Dispo: Monitor on floors Visit type - Emergency Visit Emergency Visit: Yes ED Registration Date: 06/10/18 Care time: The patient presented to the Emergency Department on the above date and was hospitalized for further evaluation of their emergent condition. - New Patient This patient is new to me today: No - Critical Care Critical Care patient: No
[2018-06-13 17:18] VITALS: BP 115/62; PULSE 84; TEMP 100.9
--- NOTE | 2018-06-13 17:52 | PN ---
Teaching Attending Note Name of Resident: Reymundo Wheeler ATTENDING PHYSICIAN STATEMENT I saw and evaluated the patient. I reviewed the resident's note and discussed the case with the resident. I agree with the resident's findings and plan as documented. SUBJECTIVE: Mr March says he is feeling fine and wants to go home. Says he is no longer having diarrhea. Denies cp, sob, n/v. OBJECTIVE: Last Vital Signs Temp Pulse Resp BP Pulse Ox 38.3 C H 84 18 115/62 99 06/13/18 16:30 06/13/18 16:30 06/13/18 16:30 06/13/18 16:30 06/13/18 09:00 Gen: nad, thin Pulm: ctab w/o w/r/r CV: rrr w/o m/r/g Abd: +bs, s/nt/nd Ext: no c/c/e CBC, BMP 06/13/18 06:30 06/13/18 06:30 ASSESSMENT AND PLAN: (1) Diarrhea Assessment/Plan: -patient says improving -however now with fever and leukocytosis -stool culture also preliminary positive for e coli -will consult ID, may need to stop vancomycin and start levaquin Code(s): R19.7 - DIARRHEA, UNSPECIFIED Qualifiers: Diarrhea type: unspecified type Qualified Code(s): R19.7 - Diarrhea, unspecified (2) ELAN (acute kidney injury) Assessment/Plan: -resolved Code(s): N17.9 - ACUTE KIDNEY FAILURE, UNSPECIFIED (3) Hypovolemic shock Assessment/Plan: -resolved Code(s): R57.1 - HYPOVOLEMIC SHOCK (4) HTN (hypertension) Assessment/Plan: -stavle Code(s): I10 - ESSENTIAL (PRIMARY) HYPERTENSION Qualifiers: Hypertension type: essential hypertension Qualified Code(s): I10 - Essential (primary) hypertension (5) Heroin addiction Assessment/Plan: -place on low dose daily methadone Code(s): F11.20 - OPIOID DEPENDENCE, UNCOMPLICATED (6) Weight loss Assessment/Plan: -unintentional -CT scan read showing pleural thickening -will need outpatient follow up Code(s): R63.4 - ABNORMAL WEIGHT LOSS (7) AAA -vascular surgery consult Problem List - Problems (1) Diarrhea Code(s): R19.7 - DIARRHEA, UNSPECIFIED Qualifiers: Diarrhea type: unspecified type Qualified Code(s): R19.7 - Diarrhea, unspecified (2) ELAN (acute kidney injury) Code(s): N17.9 - ACUTE KIDNEY FAILURE, UNSPECIFIED (3) Hypovolemic shock Code(s): R57.1 - HYPOVOLEMIC SHOCK (4) HTN (hypertension) Code(s): I10 - ESSENTIAL (PRIMARY) HYPERTENSION Qualifiers: Hypertension type: essential hypertension Qualified Code(s): I10 - Essential (primary) hypertension (5) Heroin addiction Code(s): F11.20 - OPIOID DEPENDENCE, UNCOMPLICATED (6) Weight loss Code(s): R63.4 - ABNORMAL WEIGHT LOSS (7) AAA (abdominal aortic aneurysm) Code(s): I71.4 - ABDOMINAL AORTIC ANEURYSM, WITHOUT RUPTURE
--- NOTE | 2018-06-13 19:52 | DS ---
Physical Exam: SUBJECTIVE: Patient seen and examined at bedside. OBJECTIVE: Vital Signs Period Temp Pulse Resp BP Sys/[place] Pulse Ox Last 24 Hr 98.3 F-100.9 F 77-84 18-20 115-123/62-71 99 PHYSICAL EXAM GENERAL: The patient is awake, alert, and fully oriented, in no acute distress. EYES: extraocular movements intact, sclera anicteric, conjunctiva clear. LUNGS: Breath sounds equal, clear to auscultation bilaterally HEART: Regular rate and rhythm, S1, S2. ABDOMEN: Soft, nontender, nondistended, normoactive bowel sounds EXTREMITIES: warm, well-perfused, no edema. NEUROLOGICAL: Cranial nerves II through XII grossly intact. Normal speech, normal gait. PSYCH: Normal mood, normal affect. SKIN: Warm, dry LABS Laboratory Results - last 24 hr 06/10/18 06/13/18 06/13/18 07:20 06:30 06:30 WBC 12.9 H RBC 3.51 L Hgb 9.9 L Hct 30.0 L MCV 85.5 MCH 28.2 MCHC 33.0 RDW 15.5 Plt Count 222 MPV 7.2 L Absolute Neuts (auto) 8.9 H Neutrophils % 77.6 Neutrophils % (Manual) 73.2 Band Neutrophils % 0.0 Lymphocytes % 7.4 L D Lymphocytes % (Manual) 12.4 Monocytes % 14.1 H Monocytes % (Manual) 13 H Eosinophils % 0.4 D Eosinophils % (Manual) 0.0 Basophils % 0.5 Basophils % (Manual) 0.0 Myelocytes % (Man) 0 Promyelocytes % (Man) 0 Blast Cells % (Manual) 0 Nucleated RBC % 0 Metamyelocytes 0 Hypochromia 0 Platelet Estimate Normal Polychromasia 0 Poikilocytosis 0 Anisocytosis 0 Microcytosis 0 Macrocytosis 0 Sodium 135 L Potassium 3.4 L Chloride 103 Carbon Dioxide 23 Anion Gap 9 BUN 7 Creatinine 0.9 Creat Clearance w eGFR 85.23 Random Glucose 90 Calcium 7.4 L Phosphorus 2.9 Magnesium 1.7 L Albumin 1.9 L Beta Globulins 0.8 FABRICIO & SPEP Interp Total Protein (FABRICIO) 6.4 Albumin (FABRICIO) 2.2 L Albumin/Globulin (FABRICIO) 0.6 L Ublwq-7-Bxritlonx FABRICIO 0.3 Niqpr-5-Tfpfcrisq FABRICIO 0.9 Gamma Globulins (FABRICIO) 2.2 H FABRICIO M-Aydin Not observed FABRICIO Comments Comment: IEP IgG 2119 H IEP IgA 325 IEP IgM 37 HOSPITAL COURSE: Date of Admission:06/10/18 Date of Discharge: 06/13/18 62 y/o M w/PMH HTN and heroin abuse presented to the ER with diarrhea and found to have C. Diff Ag+ but toxin negative. He was treated with PO vanco and started to improve initially but then had recurrence of diarrhea during the night of 06/12/18 while on vanco and increasing WBC on 06/13/18. Stool culture came back with preliminary positive for E Coli 0157 on 06/13/18. Before patient could be made aware of E coli presence he signed out AMA. During his hospitalization it was also found that he had a 5.5cm AAA for which vascular surgery was consulted but patient signed out AMA before he could be seen by surgery. Pt was told of risks of leaving hospital AMA including but not limited to worsening of infection, rupture of AAA, or even and he verbalized understanding. He was also told to f/u with his PCP for f/u of his current GI symptoms and for his 30 pound unintentional weight loss for investigation of an underlying malignancy. He was also told to f/u with vascular surgery for his AAA. Pt signed out AMA. Minutes to complete discharge: 45 Discharge Summary Reason For Visit: ACUTE KIDNEY INJURY, HYPOVOLEMIC SHOCK, DEHYDRATIO Condition: Stable - Instructions Disposition: AGAINST MEDICAL ADVICE - Home Medications Comprehensive Discharge Medication List: Ambulatory Orders Losartan Potassium [Cozaar -] 50 mg PO DAILY 12/29/15 This patient is new to me today: Yes Date on this admission: 06/14/18 Emergency Visit: No Critical Care patient: No - Discharge Referral Referred to [facility] Med P.C.: No
== END 2018-06-13 18:02 | disposition left against medical advice (07) ==
LOC: JER 13:15 → JERBED 15:02 → J5S 16:39 → J8W 06-11 15:36
PROVIDERS: ADMIT Internal Medicine; ATTEND Internal Medicine
PROC: 3E033GC Introduction of Other Therapeutic Substance into Peripheral Vein, Percutaneous Approach (ICD-10-PCS; principal; 2018-06-10)
PROC: 3E0337Z Introduction of Electrolytic and Water Balance Substance into Peripheral Vein, Percutaneous Approach (ICD-10-PCS; 2018-06-10)
DX: N17.9 Acute kidney failure, unspecified (principal); E86.0 Dehydration; R57.1 Hypovolemic shock; A04.72 Enterocolitis due to Clostridium difficile, not specified as recurrent; R19.7 Diarrhea, unspecified; I10 Essential (primary) hypertension; J45.909 Unspecified asthma, uncomplicated; F17.210 Nicotine dependence, cigarettes, uncomplicated; F11.20 Opioid dependence, uncomplicated; R63.4 Abnormal weight loss; I71.4 Abdominal aortic aneurysm, without rupture
CPT/HCPCS: 36415; 71046-TC-FY; 71250-TC; 74177-TC; 76856-TC; 80048; 80053; 81003; 82040; 82784; 83690; 83735; 84100; 84155; 84165; 84436; 84443; 85025; 86334; 87045; 87046; 87177; 87186; 87209; 87324; 87449; 93005; 93010; 96361; 96374; 96376; 99284-25; G0378; J7030; Q9967

== ENCOUNTER 2018-06-19 13:01 | Inpatient (IN) | payer OTHER, MEDICARE | END 2018-06-28 13:06 | disposition home or self-care (01) | LOC: JER 13:01 → JERBED 15:29 → J6S 17:39 ==

== ENCOUNTER 2018-12-25 15:30 | Inpatient (IN) | payer OTHER ==
--- NOTE | 2018-12-25 15:48 | PDOC ---
Rapid Medical Evaluation Chief Complaint: Shortness of Breath Time Seen by Provider: 12/25/18 15:42 Medical Evaluation: Allergies Allergy/AdvReac Type Severity Reaction Status Date / Time No Known Allergies Allergy Verified 06/19/18 13:26 12/25/18 15:43 I have performed a brief in-person evaluation of this patient. The patient presents with a chief complaint of:shortness of breath with documentation of Aortic aneurism in May. Heroin sniffing 3 days ago. Pertinent physical exam findings: pale, cachectic I have ordered the following: Chest Xray , CBC, CMP, EKg The patient will proceed to the ED for further evaluation. 12/25/18 15:48 Discharge Disposition - Diagnosis SOB (shortness of breath) - Discharge Dispostion Condition at time of disposition: Stable - Referrals - Patient Instructions - Post Discharge Activity
[2018-12-25 16:13] LABS: BASO % 0.1 % (0-2.0); HEMOGLOBIN 8.9 GM/dL (11.7-16.9); LYMPH % 3.6 % (8-40); MCH 27.2 pg (25.7-33.7); MCHC 31.9 g/dl (32.0-35.9); MEAN CELL VOLUME 85.3 fl (80-96); MONO % 6.2 % (3.8-10.2); NEUT % 90.1 % (42.8-82.8); PLATELET COUNT 596 K/MM3 (134-434); RBC 3.28 M/mm3 (4.00-5.60); RDW 17.6 % (11.9-15.9); WHITE BLOOD COUNT 28.7 K/mm3 (4.0-10.0)
[2018-12-25 16:39] LABS: ALBUMIN 1.5 g/dl (3.4-5.0); BILIRUBIN,TOTAL 0.7 mg/dL (0.2-1); BLOOD UREA NITROGEN 28.9 mg/dL (7-18); CALCIUM 7.7 mg/dL (8.5-10.1); CREATININE 1.3 mg/dL (0.55-1.3); POTASSIUM 4.1 mmol/L (3.5-5.1); TOT PROT 7.7 g/dl (6.4-8.2)
[2018-12-25 16:46] LABS: PLATELET ESTIMATE INCREASED
--- NOTE | 2018-12-25 17:06 | PDOC ---
Attending Attestation - Resident Resident Name: Michael Ferreira - ED Attending Attestation I have performed the following: I have examined & evaluated the patient, The case was reviewed & discussed with the resident, I agree w/resident's findings & plan, Exceptions are as noted - HPI HPI: 12/25/18 17:05 63-year-old male presents with shortness of breath and weakness. Denies chest pain. He has a known aortic aneurysm. He is followed at [facility] - Physicial Exam PE: 12/25/18 17:26 Cachectic 6 foot 5 male presents with complaint of 1 week of shortness of breath significant weight loss over the past 4 months. Active IVDA heroin user 12/25/18 17:28 Head normocephalic atraumatic, temporal wasting Neck supple Lungs no crackles CVS tachycardia Abdomen flat Skin poor skin turgor Neuro alert and conversant 12/25/18 19:05 - Medical Decision Making 12/25/18 17:57 Briefly spoke with radiologist Dr. Soni who looked at the CTA of the chest and did not find any dissections. There were no significant differences from this CT of the chest and the one he had in June of this year. There were aortic aneurysms but no dissection 12/25/18 19:06 PMH copd,IVDA use troponin is negative He presented tachycardic , labs reveal leukocytosis,acidosis being admitted for sepsis
--- NOTE | 2018-12-25 17:26 | PDOC ---
History of Present Illness - General Chief Complaint: Shortness of Breath Stated Complaint: DIFFICULTY BREATHING/WEAKNESS Time Seen by Provider: 12/25/18 15:42 History Source: Patient Exam Limitations: No Limitations - History of Present Illness Initial Comments: 12/25/18 18:00 62 y/o M w/PMH of HTN, Heroin abuse (sniffs, no IVDA) and a thoracic aortic aneurysm (4.5 cm on imaging 06/2018) presents to the ED with 7 days of SOB, nausea, poor appetite and abdominal pain. Pt states the pain in the abdomen is diffuse, has not eaten in 7 days, last BM today without diarrhea or blood, admits to 35LBS weight loss over the last 3 months, denies vomiting. States SOB is made worse with mild activity such as walking 1 block which is new over the last 1 week. Denies CP, new back pain, recent travel, recent illness. Pt recently saw Dr. Ybarra (CT surgery) at [facility] for his aneurysm, states due to no recent imaging done and no plans/recommendations at this time. Past History - Past Medical History Allergies/Adverse Reactions: Allergies Allergy/AdvReac Type Severity Reaction Status Date / Time No Known Allergies Allergy Verified 06/19/18 13:26 Home Medications: Ambulatory Orders Pantoprazole Sodium [Protonix -] 20 mg PO DAILY #30 tablet.ec 06/28/18 Sulfamethoxazole/Trimethoprim [Bactrim Ds -] 1 tab PO BID #12 tablet 06/28/18 metroNIDAZOLE [Flagyl -] 500 mg PO TID #30 tablet 06/28/18 Asthma: Yes COPD: No DVT: No HTN: Yes Other medical history: brain aneurysm - Surgical History Orthopedic Surgery: Yes (R femur repair) - Immunization History Immunization Up to Date: Yes - Psycho Social/Smoking Cessation Hx Smoking Status: No Smoking History: Former smoker Have you smoked in the past 12 months: Yes Number of Cigarettes Smoked Daily: 10 If you are a former smoker, when did you quit?: 1 week ago Information on smoking cessation initiated: No 'Breaking Loose' booklet given: 10/19/17 Hx Alcohol Use: No Drug/Substance Use Hx: No Substance Use Type: None Hx Substance Use Treatment: Yes Review of Systems - Review of Systems Constitutional: No: Chills, Fever HEENTM: No: Eye Pain, Blurred Vision Respiratory: Yes: Shortness of Breath, SOB with Exertion. No: Wheezing Cardiac (ROS): No: Chest Pain, Edema, Lightheadedness, Palpitations ABD/GI: Yes: Nausea, Other (diffuse abdominal pain). No: Constipated, Diarrhea , Vomiting : No: Burning, Dysuria, Discharge, Frequency, Flank Pain Musculoskeletal: Yes: Back Pain (per) *Physical Exam - Vital Signs Last Vital Signs Temp Pulse Resp BP Pulse Ox 98.0 F 155 H 16 95/61 99 12/25/18 15:44 12/25/18 15:44 12/25/18 15:44 12/25/18 15:44 12/25/18 15:44 - Physical Exam General Appearance: Yes: Nourished, Appropriately Dressed, Apparent Distress HEENT: positive: EOMI, SLOAN Neck: positive: Supple. negative: Carotid bruit Respiratory/Chest: positive: Lungs Clear, Normal Breath Sounds. negative: Respiratory Distress, Accessory Muscle Use Cardiovascular: positive: Regular Rhythm, S1, S2, Tachycardia. negative: Edema , JVD, Murmur Vascular Pulses: Dorsalis-Pedis (R): 4+, Doralis-Pedis (L): 4+ Gastrointestinal/Abdominal: positive: Flat, Soft, Pulsatile Mass (palpapable aorta with light touch), Tenderness (diffuse). negative: Distended, Guarding, Rebound Rectal Exam: positive: other (refused after multiple attempts ) Musculoskeletal: negative: CVA Tenderness Extremity: positive: Normal Capillary Refill, Normal Inspection, Normal Range of Motion. negative: Pedal Edema, Calf Tenderness Integumentary: positive: Normal Color, Dry, Warm Neurologic: positive: Fully Oriented, Alert, Normal Mood/Affect, Motor Strength 5/5. negative: Sensory Deficit ED Treatment Course - LABORATORY CBC & Chemistry Diagram: 12/25/18 17:40 12/25/18 15:56 - ADDITIONAL ORDERS Additional order review: Laboratory Results 12/25/18 15:56 Sodium 131 L Potassium 4.1 Chloride 94 L Carbon Dioxide 28 Anion Gap 9 BUN 28.9 H Creatinine 1.3 Est GFR (CKD-EPI)AfAm 66.83 Est GFR (CKD-EPI)NonAf 57.66 Random Glucose 100 Calcium 7.7 L Total Bilirubin 0.7 AST 28 ALT 13 Alkaline Phosphatase 306 H Total Protein 7.7 Albumin 1.5 L 12/25/18 15:56 RBC 3.28 L MCV 85.3 MCHC 31.9 L RDW 17.6 H MPV 7.0 L Neutrophils % 90.1 H Lymphocytes % 3.6 L D Monocytes % 6.2 Eosinophils % 0.0 D Basophils % 0.1 - RADIOLOGY Radiology Studies Ordered: Category Date Time Status ABDOMEN & PELVIS CT WITH CONTR [CT] Stat CT Scan 12/25/18 16:30 Taken CHEST CTA [CT] Stat CT Scan 12/25/18 16:30 Taken Medical Decision Making - Medical Decision Making 62 y/o M w/PMH of HTN, Heroin abuse (sniffs, no IVDA) and a thoracic aortic aneurysm (4.5 cm on imaging 06/2018) presents to the ED with 7 days of SOB, nausea, poor appetite and abdominal pain. Pt states the pain in the abdomen is diffuse, has not eaten in 7 days, last BM today without diarrhea or blood, admits to 35LBS weight loss over the last 3 months, denies vomiting. States SOB is made worse with mild activity such as walking 1 block which is new over the last 1 week. Denies CP, new back pain, recent travel, recent illness. Pt recently saw Dr. Ybarra (CT surgery) at [facility] for his aneurysm, states due to no recent imaging done and no plans/recommendations at this time. DDX INLT: Dissection, perforated ulcer, PE, CHF, OK, sepsis, PNA, colitis, UTI, abdominal CA, multiple myeloma Labs show elevated WBC, anemia (chronically anemic) elevated alk phos Denies rectal exam for temp and tone after 3 attempts to explain the importance of accurate temperature readings and neuro exam CT shows no dissection and persistent multiple aneurysms 12/25/18 19:26 pending UA and culture, pt given 2L NS bolus and has been unable to urinate since this am Given broad spec antibiotics for likely infection (tachy, hypotensive, elevated WBC, refusing rectal exam/temp) pt responded well to 2L NS, HR 100, BP systolic in the 100s Pt admitted for SIRS, tachy, failure to thrive Discharge - Discharge Information Problems reviewed: Yes Clinical Impression/Diagnosis: SOB (shortness of breath), Leukocytosis, unspecified, Dehydration, Hypotension , SIRS (systemic inflammatory response syndrome) Condition: Stable - Admission Yes - Follow up/Referral - Patient Discharge Instructions - Post Discharge Activity
[2018-12-25] MEDS ORDERED: ACETAMINOPHEN 1000 MG/100 ML VIAL (NON FORMULARY) IVPB ONE (17:56)
[2018-12-25] MEDS ORDERED: VANCOMYCIN 1,000 MG in DEXTROSE 5%-WATER - 250 ML IVPB ONE (18:05)
[2018-12-25] MEDS ORDERED: PIPERACILLIN/TAZOB 4.5 GM 4.5 GM in DEXTROSE 5%-WATER 100 ML IVPB ONE (18:06)
[2018-12-25] MEDS ORDERED: SODIUM CHLORIDE 1,000 ML IV STA ×2 (18:06→18:30)
[2018-12-25 18:08] LABS: BASO % 0.1 % (0-2.0); HEMOGLOBIN 8.3 GM/dL (11.7-16.9); LYMPH % 3.2 % (8-40); MCH 27.5 pg (25.7-33.7); MEAN CELL VOLUME 85.7 fl (80-96); MEAN PLT VOLUME 7.2 fl (7.5-11.1); MONO % 6.5 % (3.8-10.2); NEUT % 90.2 % (42.8-82.8); PLATELET COUNT 535 K/MM3 (134-434); RBC 3.04 M/mm3 (4.00-5.60); RDW 17.1 % (11.9-15.9); VENOUS PC02 50.4 mmHg (38-52); VENOUS PH 7.36 (7.31-7.41); WHITE BLOOD COUNT 25.2 K/mm3 (4.0-10.0)
[2018-12-25] MEDS ORDERED: ACETAMINOPHEN INJECTION 100 ML IVPB ONE (18:08)
[2018-12-25] MEDS ORDERED: VANCOMYCIN 1 GRAM (PRE-DOCKED) 1,000 MG/250 ML BAG IVPB ONE (18:13)
[2018-12-25] MEDS ORDERED: PIPERACILLIN/TAZOB 4.5 GM 4.5 GM/100 ML BAG IVPB ONE (18:13)
[2018-12-25 18:15] LABS: VENOUS PO2 < 49 mmHg (28-48)
[2018-12-25 18:26] LABS: INR 1.49 (0.83-1.09); PROTHROMBIN TIME (PATIENT) 17.7 SEC (9.7-13.0)
[2018-12-25 18:28] LABS: ACTIVATED PTT 30.1 SECONDS (25.2-36.5)
[2018-12-25 18:46] LABS: PLATELET ESTIMATE INCREASED
[2018-12-25] MEDS ORDERED: ACETAMINOPHEN 325 MG TABLET (FP) PO PRN (20:50)
[2018-12-25] MEDS ORDERED: SODIUM CHLORIDE 1,000 ML IV SCH (21:00)
--- NOTE | 2018-12-25 21:24 | HP ---
CHIEF COMPLAINT: SOB PCP: HISTORY OF PRESENT ILLNESS: This is a 63 year old male with a PMHx of a 4.5 cm aortic aneurysm in June 2018 at [facility], right femur repair 2 years ago, COPD, and HTN presenting to the ED c/o 1 week history of shortness of breath. Patient states he feels short of breath while ambulating just a couple of feet. Pt's last echo was 06/25 notable for EF-60-65%. He reports its associated with periumbilical and right mid abdominal discomfort, chronic back pain, and poor appetite. Patient states he has had a poor appetite for the past week but has had a 35 lb weight loss over the past few months, without a known cause. He reports normal bowel movements, last one being yesterday without any blood or mucous. No chest pain, fever, chills, headaches, dizziness, nausea, vomiting, or other problems at this time. Patient admits to heroin use yesterday, sniffing about 2 bags of heroin/day for the past ten years. Patient also reports a 30 year history of smoking about 10-15 cigarettes per day but he states he quit 1 week ago. Patient denies any use of steroids. He takes Losartan 50 mg for HTN. He received the flu shot this year but does not know whether he has received a pneumonia vaccine. 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 He has not worked since tuesday due to his recent ailments. ER course was notable for: (1) vanc/zosyn administered (2) NS 2L and a 1 L bolus given (3) UA Cx, CTA, CT abd pelvis Recent Travel: Denies PAST MEDICAL HISTORY: COPD, HTN, AA 06/25 without dissection PAST SURGICAL HISTORY: Rt femur fracture (2017) Family Hx: Father - / Mother - 89 years old with hx of thyroid disorder , HTN, and DMII Social History: Smokin pack year hx, but quit last mth Alcohol: denies Drugs: snorts heroin 2bags/day X 10 yrs. Allergies No Known Allergies Allergy (Verified 06/19/18 13:26) HOME MEDICATIONS: Home Medications Medication Instructions Recorded Pantoprazole Sodium [Protonix -] 20 mg PO DAILY #30 tablet.ec 06/28/18 Sulfamethoxazole/Trimethoprim 1 tab PO BID #12 tablet 05/22/19 [Bactrim Ds -] metroNIDAZOLE [Flagyl -] 500 mg PO TID #30 tablet 06/28/18 Losartan 50Mg/Hctz 12.5MG [Hyzaar 50 mg PO DAILY 12/25/18 -] REVIEW OF SYSTEMS negative except as listed in HPI. PHYSICAL EXAMINATION Vital Signs - 24 hr 12/25/18 12/25/18 15:44 18:10 Temperature 98.0 F 98.5 F Pulse Rate 155 H Pulse Rate [ 88 Right Radial] Respiratory 16 19 Rate Blood Pressure 95/61 Blood Pressure 108/64 [Left Arm] O2 Sat by Pulse 99 100 Oximetry (%) GENERAL: Awake, alert, and fully oriented, in minimal acute distress, cachectic HEAD: Rt mandibular fracture EYES: Pupillary miosis, extraocular movements intact, sclera slightly icteric, EARS, NOSE, THROAT: Ears normal, nares patent, oropharynx clear without exudates , dental caries, dry mucous membranes. NECK: Normal range of motion, no JVD LUNGS: Breath sounds equal, clear to auscultation bilaterally. No wheezes, and no crackles. No accessory muscle use. HEART: Tachycardic in regular rhythm, normal S1 and S2 without murmur, rub or gallop. ABDOMEN: Soft, mild ttp, not distended, hypoactive bowel sounds, increased guarding on rt side midabdominal with rebound, pulsatile mass periumbillicaly. Hepatomegaly present no splenomegaly. MUSCULOSKELETAL: Normal range of motion at all joints. No bony deformities or tenderness. UPPER EXTREMITIES: 2+ pulses, warm, well-perfused. No peripheral edema. LOWER EXTREMITIES: 2+ pulses, warm, well-perfused. No calf tenderness. No peripheral edema. NEUROLOGICAL: Cranial nerves II-XII intact. Normal speech. PSYCHIATRIC: Cooperative. Good eye contact. Appropriate mood and affect. SKIN: Warm, dry, decreased turgor, no rashes or lesions noted Laboratory Results - last 24 hr 12/25/18 12/25/18 12/25/18 15:56 15:56 17:40 WBC 28.7 H RBC 3.28 L Hgb 8.9 L Hct 28.0 L MCV 85.3 MCH 27.2 MCHC 31.9 L RDW 17.6 H Plt Count 596 H D MPV 7.0 L Absolute Neuts (auto) 25.8 H Neutrophils % 90.1 H Neutrophils % (Manual) 95.0 H Band Neutrophils % 2.0 Lymphocytes % 3.6 L D Lymphocytes % (Manual) 0.0 L Monocytes % 6.2 Monocytes % (Manual) 2 L Eosinophils % 0.0 D Eosinophils % (Manual) 0.0 Basophils % 0.1 Basophils % (Manual) 0.0 Myelocytes % (Man) Nucleated RBC % 0 Hypersegmented Neuts Few Platelet Estimate Increased Platelet Comment No clumping noted PT with INR 17.70 H INR 1.49 H PTT (Actin FS) 30.1 VBG pH POC VBG pCO2 POC VBG pO2 VBG HCO3 VBG O2 Sat (Rich) VBG Base Excess Sodium 131 L Potassium 4.1 Chloride 94 L Carbon Dioxide 28 Anion Gap 9 BUN 28.9 H Creatinine 1.3 Est GFR (CKD-EPI)AfAm 66.83 Est GFR (CKD-EPI)NonAf 57.66 Random Glucose 100 Lactic Acid Calcium 7.7 L Total Bilirubin 0.7 AST 28 ALT 13 Alkaline Phosphatase 306 H Troponin I B-Natriuretic Peptide Total Protein 7.7 Albumin 1.5 L 12/25/18 12/25/18 12/25/18 17:40 17:40 17:40 WBC 25.2 H RBC 3.04 L Hgb 8.3 L Hct 26.0 L MCV 85.7 MCH 27.5 MCHC 32.0 RDW 17.1 H Plt Count 535 H MPV 7.2 L Absolute Neuts (auto) 22.7 H Neutrophils % 90.2 H Neutrophils % (Manual) 78.0 Band Neutrophils % 5.0 Lymphocytes % 3.2 L Lymphocytes % (Manual) 6.0 L D Monocytes % 6.5 Monocytes % (Manual) 8 D Eosinophils % 0.0 Eosinophils % (Manual) 0.0 Basophils % 0.1 Basophils % (Manual) 0.0 Myelocytes % (Man) 1 D Nucleated RBC % 0 Hypersegmented Neuts Platelet Estimate Increased Platelet Comment No clumping noted PT with INR INR PTT (Actin FS) VBG pH POC VBG pCO2 POC VBG pO2 VBG HCO3 VBG O2 Sat (Rich) VBG Base Excess Sodium Potassium Chloride Carbon Dioxide Anion Gap BUN Creatinine Est GFR (CKD-EPI)AfAm Est GFR (CKD-EPI)NonAf Random Glucose Lactic Acid 2.3 H* Calcium Total Bilirubin AST ALT Alkaline Phosphatase Troponin I < 0.02 B-Natriuretic Peptide Total Protein Albumin 12/25/18 12/25/18 17:40 17:40 WBC RBC Hgb Hct MCV MCH MCHC RDW Plt Count MPV Absolute Neuts (auto) Neutrophils % Neutrophils % (Manual) Band Neutrophils % Lymphocytes % Lymphocytes % (Manual) Monocytes % Monocytes % (Manual) Eosinophils % Eosinophils % (Manual) Basophils % Basophils % (Manual) Myelocytes % (Man) Nucleated RBC % Hypersegmented Neuts Platelet Estimate Platelet Comment PT with INR INR PTT (Actin FS) VBG pH 7.36 POC VBG pCO2 50.4 POC VBG pO2 < 49 H VBG HCO3 28.1 VBG O2 Sat (Rich) 4.6 L VBG Base Excess 2.4 H Sodium Potassium Chloride Carbon Dioxide Anion Gap BUN Creatinine Est GFR (CKD-EPI)AfAm Est GFR (CKD-EPI)NonAf Random Glucose Lactic Acid Calcium Total Bilirubin AST ALT Alkaline Phosphatase Troponin I B-Natriuretic Peptide 1287.5 H Total Protein Albumin ASSESSMENT/PLAN: This is a 63 year old male with a PMHx of a 4.5 cm aortic aneurysm in June 2018 at [facility], right femur repair 2 years ago, COPD, and HTN presenting to the ED c/o 1 week history of shortness of breath. #Failure to thrive - failure to thrive due to poor appetite - AO X4, pleasant on exam - TSH - BMI 18, severe malnourished - dietary consulted - ensure #Chronic Leukocytosis of unknown origin/SIRS/ - no source of infection identified - wbc- 25 - Send blood cultures x2 - Can continue empiric vancomycin and Zosyn pending blood cultures - Would de-escalate antibiotics if negative cultures - ID consultation - consult heme-onc for further evaluation/Bone marrow bx - albumin/globulin ratio <1-> r/o paraproteinemia/cirrhosis as origin. - afebrile - hypotensive and tachcardic - no infiltrates on cxr - Gentle IV fluid hydration given pleural effusions however necessary to fluid resuscitate this pt bc hypotensive and volume down. #Heroin abuse - Pt made aware of harmful effects of heroin - counseled on heroin cessation - Urine toxicology screen positive for opiates as expected - Detox upon discharge #Sinus tachycardia EKG significant for sinus tachy Trops X 1 <0.02 BNP-1287.5, cxr performed on unofficial read pt's lungs do not look congested just hyperinflated due to hx of COPD. Hypotension not resolving with 3L fluid bolus resuscitation, pt on standing 125cc/hr fluids. ECHO- 06/25 showing EF 60-65%, LA dilatation, LV normal - will get rpt echo in AM, consult cardio for possible Group III pulm HTN due to COPD hx. - renal ftn normal so doubt this is due to poor clearing #Mild hyponatremia - given Na is 130-135 (131) it falls under mild. - Send serum osmolarity - Urine osmolarity - calculate FeNa #COPD - Not in acute exacerbation at this time, pt not wheezing, comfortable in bed #Aortic aneurysms CTA- showing thoracic aorta mild aneurysmal dilation, no evidence of dissection. Multiple dilatations of A.A./common iliac, COPD, hepatomegaly with distended GB w/o calculi, no acute pathology. - follows up with Dr. Ybarra (vascular surgeon at [facility]). #Chronic normocytic anemia Monitor CBC Iron studies, ferritin, vitamin B12 Red blood smear Heme-onc input (Dr. Lara) Heparin subcutaneous for DVT prophylaxis -may need SPEP UPEP to r/o paraproteinemias Globulin/albumin ratio < 1 alb- 1.5 protein- 7.7 Visit type - Emergency Visit Emergency Visit: Yes ED Registration Date: 12/25/18 Care time: The patient presented to the Emergency Department on the above date and was hospitalized for further evaluation of their emergent condition. - New Patient This patient is new to me today: Yes Date on this admission: 12/26/18 - Critical Care Critical Care patient: No
[2018-12-25 21:47] LABS: EPI CELLS 4.3 /HPF (0-5/HPF); HYALINE CASTS 4 /lpf (0-8); PH,URINE 5.5 (5.0-8.0); URINE APPEARANCE CLEAR; URINE BILIRUBIN NEGATIVE (NEGATIVE); URINE COLOR YELLOW; URINE GLUCOSE (UA) NEGATIVE (NEGATIVE); URINE KETONE NEGATIVE (NEGATIVE); URINE LEUK ESTERASE NEGATIVE (NEGATIVE); URINE NITRITE NEGATIVE (NEGATIVE); URINE PROTEIN 1+ (NEGATIVE); URINE RBC 5 /hpf (0-4); URINE WBC 3 /hpf (0-5)
[2018-12-25 21:53] LABS: COCAINE, UR NEGATIVE ng/ml (CUTOFF=300); METHADONE, UR NEGATIVE ng/ml (CUTOFF=300); PHENCYCLIDINE,URINE NEGATIVE ng/ml (CUTOFF=25); URINE AMPHETAMINES NEGATIVE ng/ml (CUTOFF=500); URINE BARBITURATES NEGATIVE ng/ml (CUTOFF=200); URINE BENZODIAZEPINES NEGATIVE ng/ml (CUTOFF=200)
[2018-12-25 21:56] LABS: OPIATES, URI POSITIVE ng/ml (CUTOFF=300)
[2018-12-25] MEDS ORDERED: RAPID SEQUENCE INTUBATION KIT NR ONE (23:26)
--- NOTE | 2018-12-26 00:42 | PN ---
Teaching Attending Note Name of Resident: Sergio Philip ATTENDING PHYSICIAN STATEMENT I saw and evaluated the patient. I reviewed the resident's note and discussed the case with the resident. I agree with the resident's findings and plan as documented. SUBJECTIVE: 63 y/o man PMH of HTN, C. difficile colitis and Klebsiella bacteremia which are treated on previous admission, duodenal ulcerations, Heroin abuse (sniffs, no IVDA) and a thoracic aortic aneurysm (4.5 cm on imaging 06/2018) presented complaining of 7 days of shortness of breath, nausea and poor appetite. Also was having abdominal pain diffuse in nature. Shortness of breath is worsened with physical activity. OBJECTIVE: Last Vital Signs Temp Pulse Resp BP Pulse Ox 98.5 F 88 19 108/64 100 12/25/18 18:10 12/25/18 18:10 12/25/18 18:10 12/25/18 18:10 12/25/18 18:10 GENERAL: Cachectic, Awake and alert. No acute distress. HEENT: Normocephalic, atraumatic. PERRLA, EOMI. No conjunctival pallor. Sclera are non- icteric. Moist mucous membranes. Oropharynx is clear. NECK: Supple. Full ROM. No JVD. Carotid pulses 2+ and symmetric, without bruits. No thyromegaly. No lymphadenopathy. CARDIOVASCULAR: Regular rate and rhythm. No murmurs, rubs, or gallops. Distal pulses are 2+ and symmetric. PULMONARY: No evidence of respiratory distress. Lungs clear to auscultation bilaterally. No wheezing, rales or rhonchi. ABDOMINAL: Soft. Non-tender. Non-distended. No rebound or guarding. No organomegaly. Normoactive bowel sounds. MUSCULOSKELETAL Normal range of motion at all joints. No bony deformities or tenderness. No CVA tenderness. EXTREMITIES: No cyanosis. No clubbing. No edema. No calf tenderness. SKIN: Warm and dry. Normal capillary refill. No rashes. No jaundice. PSYCHIATRIC: Cooperative. Good eye contact. Appropriate mood and affect. Abnormal Lab Results 12/25/18 12/25/18 12/25/18 15:56 15:56 17:40 WBC 28.7 H RBC 3.28 L Hgb 8.9 L Hct 28.0 L MCHC 31.9 L RDW 17.6 H Plt Count 596 H D MPV 7.0 L Absolute Neuts (auto) 25.8 H Neutrophils % 90.1 H Neutrophils % (Manual) 95.0 H Lymphocytes % 3.6 L D Lymphocytes % (Manual) 0.0 L Monocytes % (Manual) 2 L PT with INR 17.70 H INR 1.49 H POC VBG pO2 VBG O2 Sat (Rich) VBG Base Excess Sodium 131 L Chloride 94 L BUN 28.9 H Lactic Acid Calcium 7.7 L Alkaline Phosphatase 306 H B-Natriuretic Peptide Albumin 1.5 L Ur Specific [place] Urine Protein Opiates Screen 12/25/18 12/25/18 12/25/18 17:40 17:40 17:40 WBC 25.2 H RBC 3.04 L Hgb 8.3 L Hct 26.0 L MCHC RDW 17.1 H Plt Count 535 H MPV 7.2 L Absolute Neuts (auto) 22.7 H Neutrophils % 90.2 H Neutrophils % (Manual) Lymphocytes % 3.2 L Lymphocytes % (Manual) 6.0 L D Monocytes % (Manual) PT with INR INR POC VBG pO2 < 49 H VBG O2 Sat (Rich) 4.6 L VBG Base Excess 2.4 H Sodium Chloride BUN Lactic Acid 2.3 H* Calcium Alkaline Phosphatase B-Natriuretic Peptide Albumin Ur Specific [place] Urine Protein Opiates Screen 12/25/18 12/25/18 12/25/18 17:40 21:07 21:07 WBC RBC Hgb Hct MCHC RDW Plt Count MPV Absolute Neuts (auto) Neutrophils % Neutrophils % (Manual) Lymphocytes % Lymphocytes % (Manual) Monocytes % (Manual) PT with INR INR POC VBG pO2 VBG O2 Sat (Rich) VBG Base Excess Sodium Chloride BUN Lactic Acid Calcium Alkaline Phosphatase B-Natriuretic Peptide 1287.5 H Albumin Ur Specific [place] 1.040 H Urine Protein 1+ H Opiates Screen Positive A* Imaging reviewed, CTA of abdomen and pelvis performed and showed dilation of thoracic aorta, ascending aorta measured 4 cm, no evidence of dissection. Lungs are consistent with emphysema and multiple bulla. Abdominal aorta with multiple areas of aneurysm dilatation including 4.5 cm aneurysm at level of diaphragm, additional 4.5 cm aneurysm within the mid abdomen and 4.5 cm aneurysm at the aortic bifurcation. Hepatomegaly at 23.1 cm in craniocaudal dimension. No evidence of pneumoperitoneum, bowel obstruction or intra- abdominal abscess. EKG showed sinus tachycardia ASSESSMENT AND PLAN: 63-year-old man with SIRS picture and vague symptoms including some shortness of breath. Found to have sinus tachycardia. noted to have chronic leukocytosis and anemia. No source of infection is identified. Ascencio CT showed aneurysms and aorta that were known previously and hepatomegaly. There is no evidence of infection Admit to [facility] Send blood cultures x2 Can continue empiric vancomycin and Zosyn pending blood cultures Would de-escalate antibiotics if negative cultures Infectious disease consultation #Chronic leukocytosis-Should rule out underlying leukemia Would consult heme-onc for further evaluation #Heroin abuse Counseled patient to stop using heroin Urine toxicology screen Detox upon discharge #MalnourishmentBMI below 18, patient appears cachectic on examination Dietary evaluation Calorie count HIV serology Rule out underlying malignancy including leukemia #Hypo-natremia Send serum osmolarity Urine osmolarity TSH Gentle IV fluid hydration #Chronic normocytic anemia Monitor CBC Iron studies, ferritin, vitamin B12 Red blood smear Heme-onc input Heparin subcutaneous for DVT prophylaxis
[2018-12-26] MEDS ORDERED: ACETAMINOPHEN 325 MG TABLET (FP) ONE (03:36)
[2018-12-26] MEDS ORDERED: PIPERACILLIN/TAZOB 3.375 GM 3.375 GM/50 ML BAG IVPB ONE ×2 (03:36→09:24)
[2018-12-26] MEDS: PIPERACILLIN/TAZOB 3.375 GM 3.375 GM in DEXTROSE 5%-WATER - 50 ML IVPB SCH ×3 (03:42→15:35)
[2018-12-26] MEDS ORDERED: HEPARIN NA (PORCINE) 5,000 UNITS/ML 1ML VIAL ONE ×2 (06:51→14:51)
[2018-12-26] MEDS: HEPARIN NA (PORCINE) 5,000 UNITS/ML 1ML VIAL SQ SCH ×3 (06:56→21:20)
[2018-12-26 08:13] LABS: BASO % 0.2 % (0-2.0); HEMATOCRIT 24.1 % (35.4-49); HEMOGLOBIN 7.9 GM/dL (11.7-16.9); LYMPH % 2.7 % (8-40); MCH 28.2 pg (25.7-33.7); MCHC 32.8 g/dl (32.0-35.9); MEAN CELL VOLUME 85.8 fl (80-96); MEAN PLT VOLUME 7.3 fl (7.5-11.1); MONO % 6.8 % (3.8-10.2); NEUT % 90.3 % (42.8-82.8); PLATELET COUNT 540 K/MM3 (134-434); RBC 2.81 M/mm3 (4.00-5.60); WHITE BLOOD COUNT 28.7 K/mm3 (4.0-10.0)
[2018-12-26 08:20] LABS: ALBUMIN 1.3 g/dl (3.4-5.0); BILIRUBIN,TOTAL 0.6 mg/dL (0.2-1); BLOOD UREA NITROGEN 26.3 mg/dL (7-18); CALCIUM 7.2 mg/dL (8.5-10.1); CREATININE 1.2 mg/dL (0.55-1.3); MAGNESIUM 1.7 mg/dL (1.8-2.4); PHOSPHOROUS 4.3 mg/dL (2.5-4.9); POTASSIUM 3.7 mmol/L (3.5-5.1); TOT PROT 6.5 g/dl (6.4-8.2)
[2018-12-26] MEDS ORDERED: VANCOMYCIN 1 GRAM (PRE-DOCKED) 1,000 MG/250 ML BAG IVPB ONE ×2 (09:02→10:00)
[2018-12-26] MEDS ORDERED: VANCOMYCIN 1 GM in D5W (PRE-DOCKED) 1,000 MG/250 ML IVPB SCH (10:00)
--- NOTE | 2018-12-26 10:40 | EKG ---
Test Reason : Blood Pressure : / mmHG Vent. Rate : 143 BPM Atrial Rate : 143 BPM P-R Int : 114 ms QRS Dur : 082 ms QT Int : 302 ms P-R-T Axes : 059 012 071 degrees QTc Int : 466 ms POOR DATA QUALITY, INTERPRETATION MAY BE ADVERSELY AFFECTED SINUS TACHYCARDIA POSSIBLE LEFT ATRIAL ENLARGEMENT INFERIOR INFARCT (CITED ON OR BEFORE 19-JUN-2018) ABNORMAL ECG Confirmed by MD TORIBIO, PATTI ([id number]) on 12/26/2018 10:39:31 AM Referred By: Confirmed By:PATTI ROONEY MD
[2018-12-26 12:55] LABS: ANISOCYTOSIS 1+; PLATELET ESTIMATE INCREASED
--- NOTE | 2018-12-26 13:39 | PN ---
Teaching Attending Note Name of Resident: Ragini Mccormick ATTENDING PHYSICIAN STATEMENT I saw and evaluated the patient. I reviewed the resident's note and discussed the case with the resident. I agree with the resident's findings and plan as documented. SUBJECTIVE: He feels tired, deneis SOB , or fever , or AQUINO , or cough , or adb pain. denies diarrhea. denies abd pain. he reports 35 pound weight loss. inlast week he lost his appetite. last use of heroin was yesterday, he snorts and does not inject OBJECTIVE: NAD awake, alert ,cooperative. flat affect HEENT: poor dentition , can't bisualise oropharynx fully. no thrush, R submandibular lymph node vs submandibular gland 2cm in diameter. No JVD CV: RRR, no mRG Lungs: CTAB Ext: No edema or erythema . varicose veins on feet. fungal infection in R foot among toes. Abd: soft, Mild tenderness in RUQ and RLQ. liver is percussed and palpated occupying all RUQ and part of RLQ. Nl BS. No splenomegaly on exam Lymphatic systen: palpated node in R submandibular area as above. No LAP in axilla. decliend groin exam Axillary areas: R with scarring but no drainage. L with scarring. purulent discharge was expressed form L axilla Skin : no rash ASSESSMENT AND PLAN: 63 y/o man with h/o recent admission for C diff, Klebsiella bacteremia, heroin abuse, HTN, recent diagnosis of duodenal ucler, aortic aneurysm, who presented to [facility] then was sent here due to cough and SOB. he was found to have leukocytosis 1- Leukocytosis: source is not clear. On exam he has LL axillary hydradenitis, but I doubt it is completely responsible for the leukocytosis. No murmurs heard on exam. NO other skin findings. on review of CT images, there is significant dilation of gal bladder with no wall thickening , but this is new compared to the images taken in 06/25. there is scarring in both upper pulmonary area. - Will need to r/o biliary source like acute cholecystitis. will call sx - will need to r/o bacteremia - she is on zosyn now. cont that pending ID eval - check c diff if diarrhea - if no infectious source is found , then will need to r/o MDs/leukemia given severe hepatomegal. 2- H/o AAA. CT scan was reviewed with Dr. Saavedra. aneurysm in thoracic aorta which was read as 4 cm , is actually > 5 cm . has AAA in abdominal aorta as well. - will consult dr. Rose to evaluate 3- Chronic Normocytic anemia: iron studeis in June did not show evidence of iron def. B12 and folate were nl. SPEP with no M spike - given hepatomegaly, and the anemia , and weight loss. MDS might needs to be r/ o - heme consult 4- Weight loss: Unexplained. - ? malignancy - TSH , was nl in 06/25. EGD with bx of duodenal ulcer showed chronic inflammation - colonoscopy was not performed - heme w/u VS colonoscopy 5- Heroin abuse. no signs of withdrawal . if he starts showing any signs , will place on methadone Detox protocol . 6- H/o HTN. BP on lower side. hold off resuming losartan /HCTZ 7- HLOC Heparin sq
[2018-12-26] MEDS ORDERED: SODIUM CHLORIDE 1,000 ML IV SCH (14:16)
--- NOTE | 2018-12-26 15:30 | PN ---
Progress Note (short form) - Note Progress Note: ID consult dictated imp/reccd limited history patient wants to sleep and is tired of talking reports one week of SOB and midepigastric pain- not sure which came first no fevers or chills no nausea or vomiting no ETOH snorts heroin found to have leukocytosis no fevers ct scans remarkable for ?distended gb, enlarged liver, multiple aneurysms leukocytosis abdominal pain prior history of Cdiff prior history of weight loss prior history of Gram negative bacteremia substance use history (active) started on vancomycin and zosyn would continue pending further evaluation from surgery and culture results hiv test ?malignancy Problem List - Problems (1) Leukocytosis, unspecified Code(s): D72.829 - ELEVATED WHITE BLOOD CELL COUNT, UNSPECIFIED (2) Abdominal pain Code(s): R10.9 - UNSPECIFIED ABDOMINAL PAIN (3) Weight loss Code(s): R63.4 - ABNORMAL WEIGHT LOSS (4) Heroin addiction Code(s): F11.20 - OPIOID DEPENDENCE, UNCOMPLICATED
--- NOTE | 2018-12-26 16:27 | CONS ---
INFECTIOUS DISEASE CONSULTATION DATE OF CONSULTATION: DATE OF DICTATION: 12/26/2018 REQUESTING PHYSICIAN: Hospitalist service. HISTORY: This is an extremely limited history. The patient wants to sleep. He says he has been talking to someone every hour. He presents to the emergency room on the with complaints of shortness of breath and midepigastric pain. He describes both of them for about the last 7-8 days. He is unable to say whether the abdominal pain came first. He was in the hospital in June, and at that time, he had a Klebsiella bacteremia. He had an endoscopy. He was to follow up with his PMD, with vascular, and GI as an outpatient none of which he did. 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 He last went to work on Tuesday. He felt so bad on Tuesday he was not able to go to work. He notes a chronic weight loss. He reports he stopped smoking a week ago. He takes losartan. He does not know who his doctor is. He states once since June he saw a doctor. He does not know the name. He lives at home. There is no history of any recent travels. He denies nausea or vomiting but reports he has had a poor appetite. He had a normal bowel movement yesterday. PAST MEDICAL HISTORY: Notable for COPD, hypertension. He has an aortic aneurysm. He was last in the hospital in June twice. Hospital stay was complicated by Klebsiella bacteremia for which he was treated with IV antibiotics with resolution. He also underwent endoscopy during that admission, and he had moderate duodenal inflammation. He reports he has been well until now. He denies any alcohol use. He apparently stopped smoking a week ago, and he sniffs heroin. Denies any IV drug use. He was HIV tested in June and is negative. Repeat testing now is negative as well. REVIEW OF SYSTEMS: Per HPI. It is limited because the patient does not want to talk to me. PHYSICAL EXAMINATION: Vital Signs: His temperature is 98.5, current pulse is 98, blood pressure is 98/62, respiratory rate is 18. He is saturating 97% on room air. General: He wants to sleep. HEENT: He is normocephalic. He has no thrush. Lungs: Diminished breath sounds at the bases. Heart: Regular rate and rhythm. Exam is also limited by the patient's lack of cooperation. Abdomen: Soft. He has mild midepigastric tenderness to palpation. He has discomfort all throughout his abdomen while I palpated, but he has no rebound or guarding. Extremities: Without edema. Skin: He has no rash. His labs are notable for a white count of 28.7, hemoglobin 7.9, platelets are 540. His BUN 26, creatinine 1.2. AST 26, ALT 12, alkaline phosphatase 258. Urinalysis has 1+ protein with 3 white cells. Urine and blood cultures are pending. He was given vancomycin and Zosyn in the ER. Had multiple imaging studies including CAT scan and thoracic CTA and abdomen and pelvis with contrast. He has an ectatic thoracic aorta with mild aneurysmal dilatation. No evidence of dissection. Multiple areas of aneurysmal dilatation in the abdominal and common iliac arteries without dissection. Moderately severe COPD without any pneumonia. He has hepatomegaly and a distended gallbladder. In summary, this is a 63-year-old man admitted from home. He does not really see the doctor very often. Has a history of COPD and abdominal aneurysm in the past. Found to have leukocytosis. No fevers with abdominal discomfort and shortness of breath. Leukocytosis is unexplained. CAT scan is remarkable for possibly a distended gallbladder, enlarged liver with multiple aneurysms in his abdomen with no evidence of dissection. He was started on vancomycin and Zosyn. Would continue his antibiotics pending further evaluation from surgery and culture results. Overall, prognosis is guarded. OMAR COLE M.D. [id number]
--- NOTE | 2018-12-26 16:29 | CONSULT ---
Consultation: REQUESTING PROVIDER: HEME/ONC Service CONSULT REQUEST: We have been asked to medically evaluate this patient for leukemia r/o. HISTORY OF PRESENT ILLNESS: Pt is a 63 M with PMH 4.5 cm aortic aneurysm in June 2018 at [facility], right femur repair 2 years ago, COPD, C. diff and Klebsiella infections, duodenal ulcder, and HTN presenting to the ED c/o 1 week history of shortness of breath. Pt states that he has had exertional SOB especially over the last week. He endorses unintentional weight loss. He states he is not aware of ever having been anemic in the past. Denies bloody/dark/tarry in stools. He admits to heroin use, but denies ever having injected. He was tested for HIV years ago and states he does not think he could have it now. Admits to significant smoking history. REVIEW OF SYSTEMS: CONSTITUTIONAL: weight change, generalized weakness Absent: fever, chills, diaphoresis, , malaise, loss of appetite, HEENT: Absent: rhinorrhea, nasal congestion, throat pain, throat swelling, difficulty swallowing, mouth swelling, ear pain, eye pain, visual changes CARDIOVASCULAR: Absent: chest pain, syncope, palpitations, irregular heart rate, lightheadedness , peripheral edema RESPIRATORY: shortness of breath, dyspnea with exertion Absent: cough, , orthopnea, wheezing, stridor, hemoptysis GASTROINTESTINAL: Absent: abdominal pain, abdominal distension, nausea, vomiting, diarrhea, constipation, melena, hematochezia GENITOURINARY: Absent: dysuria, frequency, urgency, hesitancy, hematuria, flank pain, genital pain MUSCULOSKELETAL: Absent: myalgia, arthralgia, joint swelling, back pain, neck pain SKIN: Absent: rash, itching, pallor HEMATOLOGIC/IMMUNOLOGIC: Absent: easy bleeding, easy bruising, lymphadenopathy, frequent infections ENDOCRINE:unexplained weight loss Absent: unexplained weight gain, , heat intolerance, cold intolerance NEUROLOGIC: Absent: headache, focal weakness or paresthesias, dizziness, unsteady gait, seizure, mental status changes, bladder or bowel incontinence PSYCHIATRIC: Absent: anxiety, depression, suicidal or homicidal ideation, hallucinations. PHYSICAL EXAMINATION Vital Signs - 24 hr 12/25/18 12/26/18 12/26/18 18:10 06:32 08:43 Temperature 98.5 F 97.9 F Pulse Rate [ 88 92 H 98 H Right Radial] Respiratory 19 18 18 Rate Blood Pressure 108/64 100/62 98/62 [Left Arm] O2 Sat by Pulse 100 100 97 Oximetry (%) 12/26/18 15:02 Temperature 98.5 F Pulse Rate [ 129 H Right Radial] Respiratory 17 Rate Blood Pressure 99/62 [Left Arm] O2 Sat by Pulse 100 Oximetry (%) Gen: AAOx3, NAD HEENT:NCAT, EOMI Neck: no jvd noted Cardio: hyperdynamic, tachycardic, s1s2, no mrg noted Pulm: fine rales bibasilar Abd: soft, nondistended, mild TTP RLQ Laboratory Results - last 24 hr 12/25/18 12/25/18 12/25/18 15:56 15:56 17:40 WBC 28.7 H RBC 3.28 L Hgb 8.9 L Hct 28.0 L MCV 85.3 MCH 27.2 MCHC 31.9 L RDW 17.6 H Plt Count 596 H D MPV 7.0 L Absolute Neuts (auto) 25.8 H Neutrophils % 90.1 H Neutrophils % (Manual) 95.0 H Band Neutrophils % 2.0 Lymphocytes % 3.6 L D Lymphocytes % (Manual) 0.0 L Monocytes % 6.2 Monocytes % (Manual) 2 L Eosinophils % 0.0 D Eosinophils % (Manual) 0.0 Basophils % 0.1 Basophils % (Manual) 0.0 Myelocytes % (Man) Promyelocytes % (Man) Blast Cells % (Manual) Nucleated RBC % 0 Metamyelocytes Hypersegmented Neuts Few Platelet Estimate Increased Platelet Comment No clumping noted Anisocytosis ESR PT with INR 17.70 H INR 1.49 H PTT (Actin FS) 30.1 VBG pH POC VBG pCO2 POC VBG pO2 VBG HCO3 VBG O2 Sat (Rich) VBG Base Excess Sodium 131 L Potassium 4.1 Chloride 94 L Carbon Dioxide 28 Anion Gap 9 BUN 28.9 H Creatinine 1.3 Est GFR (CKD-EPI)AfAm 66.83 Est GFR (CKD-EPI)NonAf 57.66 Random Glucose 100 Serum Osmolality Lactic Acid Calcium 7.7 L Phosphorus Magnesium Total Bilirubin 0.7 AST 28 ALT 13 Alkaline Phosphatase 306 H Troponin I C-Reactive Protein B-Natriuretic Peptide Total Protein 7.7 Albumin 1.5 L TSH Urine Color Urine Appearance Urine pH Ur Specific [place] Urine Protein Urine Glucose (UA) Urine Ketones Urine Blood Urine Nitrite Urine Bilirubin Urine Urobilinogen Ur Leukocyte Esterase Urine WBC (Auto) Urine RBC (Auto) Urine Casts (Auto) U Epithel Cells (Auto) Urine Bacteria (Auto) Urine Osmolality Ur Random Sodium Ur Random Chloride Opiates Screen Methadone Screen Barbiturate Screen Phencyclidine Screen Ur Amphetamines Screen MDMA (Ecstasy) Screen Benzodiazepines Screen Cocaine Screen U Marijuana (THC) Screen HIV 1&2 Antibody Screen HIV P24 Antigen 12/25/18 12/25/18 12/25/18 17:40 17:40 17:40 WBC 25.2 H RBC 3.04 L Hgb 8.3 L Hct 26.0 L MCV 85.7 MCH 27.5 MCHC 32.0 RDW 17.1 H Plt Count 535 H MPV 7.2 L Absolute Neuts (auto) 22.7 H Neutrophils % 90.2 H Neutrophils % (Manual) 78.0 Band Neutrophils % 5.0 Lymphocytes % 3.2 L Lymphocytes % (Manual) 6.0 L D Monocytes % 6.5 Monocytes % (Manual) 8 D Eosinophils % 0.0 Eosinophils % (Manual) 0.0 Basophils % 0.1 Basophils % (Manual) 0.0 Myelocytes % (Man) 1 D Promyelocytes % (Man) Blast Cells % (Manual) Nucleated RBC % 0 Metamyelocytes Hypersegmented Neuts Platelet Estimate Increased Platelet Comment No clumping noted Anisocytosis ESR PT with INR INR PTT (Actin FS) VBG pH POC VBG pCO2 POC VBG pO2 VBG HCO3 VBG O2 Sat (Rich) VBG Base Excess Sodium Potassium Chloride Carbon Dioxide Anion Gap BUN Creatinine Est GFR (CKD-EPI)AfAm Est GFR (CKD-EPI)NonAf Random Glucose Serum Osmolality Lactic Acid 2.3 H* Calcium Phosphorus Magnesium Total Bilirubin AST ALT Alkaline Phosphatase Troponin I < 0.02 C-Reactive Protein B-Natriuretic Peptide Total Protein Albumin TSH Urine Color Urine Appearance Urine pH Ur Specific [place] Urine Protein Urine Glucose (UA) Urine Ketones Urine Blood Urine Nitrite Urine Bilirubin Urine Urobilinogen Ur Leukocyte Esterase Urine WBC (Auto) Urine RBC (Auto) Urine Casts (Auto) U Epithel Cells (Auto) Urine Bacteria (Auto) Urine Osmolality Ur Random Sodium Ur Random Chloride Opiates Screen Methadone Screen Barbiturate Screen Phencyclidine Screen Ur Amphetamines Screen MDMA (Ecstasy) Screen Benzodiazepines Screen Cocaine Screen U Marijuana (THC) Screen HIV 1&2 Antibody Screen HIV P24 Antigen 12/25/18 12/25/18 12/25/18 17:40 17:40 21:07 WBC RBC Hgb Hct MCV MCH MCHC RDW Plt Count MPV Absolute Neuts (auto) Neutrophils % Neutrophils % (Manual) Band Neutrophils % Lymphocytes % Lymphocytes % (Manual) Monocytes % Monocytes % (Manual) Eosinophils % Eosinophils % (Manual) Basophils % Basophils % (Manual) Myelocytes % (Man) Promyelocytes % (Man) Blast Cells % (Manual) Nucleated RBC % Metamyelocytes Hypersegmented Neuts Platelet Estimate Platelet Comment Anisocytosis ESR PT with INR INR PTT (Actin FS) VBG pH 7.36 POC VBG pCO2 50.4 POC VBG pO2 < 49 H VBG HCO3 28.1 VBG O2 Sat (Rich) 4.6 L VBG Base Excess 2.4 H Sodium Potassium Chloride Carbon Dioxide Anion Gap BUN Creatinine Est GFR (CKD-EPI)AfAm Est GFR (CKD-EPI)NonAf Random Glucose Serum Osmolality Lactic Acid Calcium Phosphorus Magnesium Total Bilirubin AST ALT Alkaline Phosphatase Troponin I C-Reactive Protein B-Natriuretic Peptide 1287.5 H Total Protein Albumin TSH Urine Color Yellow Urine Appearance Clear Urine pH 5.5 Ur Specific [place] 1.040 H Urine Protein 1+ H Urine Glucose (UA) Negative Urine Ketones Negative Urine Blood Trace Urine Nitrite Negative Urine Bilirubin Negative Urine Urobilinogen 1.0 Ur Leukocyte Esterase Negative Urine WBC (Auto) 3 Urine RBC (Auto) 5 Urine Casts (Auto) 4 U Epithel Cells (Auto) 4.3 Urine Bacteria (Auto) 16.0 Urine Osmolality Ur Random Sodium Ur Random Chloride Opiates Screen Methadone Screen Barbiturate Screen Phencyclidine Screen Ur Amphetamines Screen MDMA (Ecstasy) Screen Benzodiazepines Screen Cocaine Screen U Marijuana (THC) Screen HIV 1&2 Antibody Screen HIV P24 Antigen 12/25/18 12/25/18 12/26/18 21:07 23:00 05:50 WBC 28.7 H RBC 2.81 L Hgb 7.9 L Hct 24.1 L MCV 85.8 MCH 28.2 MCHC 32.8 RDW 17.0 H Plt Count 540 H MPV 7.3 L Absolute Neuts (auto) 25.9 H Neutrophils % 90.3 H Neutrophils % (Manual) 88.9 H Band Neutrophils % 2.0 Lymphocytes % 2.7 L Lymphocytes % (Manual) 2.0 L D Monocytes % 6.8 Monocytes % (Manual) 5 Eosinophils % 0.0 Eosinophils % (Manual) 0.0 Basophils % 0.2 Basophils % (Manual) 0.0 Myelocytes % (Man) 0 D Promyelocytes % (Man) 0 Blast Cells % (Manual) 0 Nucleated RBC % 0 Metamyelocytes 0 Hypersegmented Neuts Platelet Estimate Increased Platelet Comment Anisocytosis 1+ ESR Cancelled PT with INR INR PTT (Actin FS) VBG pH POC VBG pCO2 POC VBG pO2 VBG HCO3 VBG O2 Sat (Rich) VBG Base Excess Sodium Potassium Chloride Carbon Dioxide Anion Gap BUN Creatinine Est GFR (CKD-EPI)AfAm Est GFR (CKD-EPI)NonAf Random Glucose Serum Osmolality Lactic Acid 0.9 Calcium Phosphorus Magnesium Total Bilirubin AST ALT Alkaline Phosphatase Troponin I C-Reactive Protein B-Natriuretic Peptide Total Protein Albumin TSH Urine Color Urine Appearance Urine pH Ur Specific [place] Urine Protein Urine Glucose (UA) Urine Ketones Urine Blood Urine Nitrite Urine Bilirubin Urine Urobilinogen Ur Leukocyte Esterase Urine WBC (Auto) Urine RBC (Auto) Urine Casts (Auto) U Epithel Cells (Auto) Urine Bacteria (Auto) Urine Osmolality Ur Random Sodium Ur Random Chloride Opiates Screen Positive A* Methadone Screen Negative Barbiturate Screen Negative Phencyclidine Screen Negative Ur Amphetamines Screen Negative MDMA (Ecstasy) Screen Negative Benzodiazepines Screen Negative Cocaine Screen Negative U Marijuana (THC) Screen Negative HIV 1&2 Antibody Screen HIV P24 Antigen 12/26/18 12/26/18 12/26/18 05:50 05:50 10:17 WBC RBC Hgb Hct MCV MCH MCHC RDW Plt Count MPV Absolute Neuts (auto) Neutrophils % Neutrophils % (Manual) Band Neutrophils % Lymphocytes % Lymphocytes % (Manual) Monocytes % Monocytes % (Manual) Eosinophils % Eosinophils % (Manual) Basophils % Basophils % (Manual) Myelocytes % (Man) Promyelocytes % (Man) Blast Cells % (Manual) Nucleated RBC % Metamyelocytes Hypersegmented Neuts Platelet Estimate Platelet Comment Anisocytosis ESR PT with INR INR PTT (Actin FS) VBG pH POC VBG pCO2 POC VBG pO2 VBG HCO3 VBG O2 Sat (Rich) VBG Base Excess Sodium 135 L Potassium 3.7 Chloride 100 Carbon Dioxide 25 Anion Gap 9 BUN 26.3 H Creatinine 1.2 Est GFR (CKD-EPI)AfAm 73.62 Est GFR (CKD-EPI)NonAf 63.52 Random Glucose 71 L Serum Osmolality 286 Lactic Acid Calcium 7.2 L Phosphorus 4.3 Magnesium 1.7 L Total Bilirubin 0.6 AST 26 ALT 12 L Alkaline Phosphatase 258 H Troponin I C-Reactive Protein 23.9 H B-Natriuretic Peptide Total Protein 6.5 Albumin 1.3 L TSH 1.10 D Urine Color Urine Appearance Urine pH Ur Specific [place] Urine Protein Urine Glucose (UA) Urine Ketones Urine Blood Urine Nitrite Urine Bilirubin Urine Urobilinogen Ur Leukocyte Esterase Urine WBC (Auto) Urine RBC (Auto) Urine Casts (Auto) U Epithel Cells (Auto) Urine Bacteria (Auto) Urine Osmolality Ur Random Sodium Ur Random Chloride 65 L Opiates Screen Methadone Screen Barbiturate Screen Phencyclidine Screen Ur Amphetamines Screen MDMA (Ecstasy) Screen Benzodiazepines Screen Cocaine Screen U Marijuana (THC) Screen HIV 1&2 Antibody Screen Negative HIV P24 Antigen Negative 12/26/18 12/26/18 10:17 10:17 WBC RBC Hgb Hct MCV MCH MCHC RDW Plt Count MPV Absolute Neuts (auto) Neutrophils % Neutrophils % (Manual) Band Neutrophils % Lymphocytes % Lymphocytes % (Manual) Monocytes % Monocytes % (Manual) Eosinophils % Eosinophils % (Manual) Basophils % Basophils % (Manual) Myelocytes % (Man) Promyelocytes % (Man) Blast Cells % (Manual) Nucleated RBC % Metamyelocytes Hypersegmented Neuts Platelet Estimate Platelet Comment Anisocytosis ESR PT with INR INR PTT (Actin FS) VBG pH POC VBG pCO2 POC VBG pO2 VBG HCO3 VBG O2 Sat (Rich) VBG Base Excess Sodium Potassium Chloride Carbon Dioxide Anion Gap BUN Creatinine Est GFR (CKD-EPI)AfAm Est GFR (CKD-EPI)NonAf Random Glucose Serum Osmolality Lactic Acid Calcium Phosphorus Magnesium Total Bilirubin AST ALT Alkaline Phosphatase Troponin I C-Reactive Protein B-Natriuretic Peptide Total Protein Albumin TSH Urine Color Urine Appearance Urine pH Ur Specific [place] Urine Protein Urine Glucose (UA) Urine Ketones Urine Blood Urine Nitrite Urine Bilirubin Urine Urobilinogen Ur Leukocyte Esterase Urine WBC (Auto) Urine RBC (Auto) Urine Casts (Auto) U Epithel Cells (Auto) Urine Bacteria (Auto) Urine Osmolality 410 Ur Random Sodium 46 Ur Random Chloride Opiates Screen Methadone Screen Barbiturate Screen Phencyclidine Screen Ur Amphetamines Screen MDMA (Ecstasy) Screen Benzodiazepines Screen Cocaine Screen U Marijuana (THC) Screen HIV 1&2 Antibody Screen HIV P24 Antigen Active Medications Generic Name Dose Route Start Last Admin Trade Name Miguel Ángel PRN Reason Stop Dose Admin Acetaminophen 650 mg 12/25/18 20:50 12/26/18 03:42 Tylenol - PO 650 mg Q4H PRN Administration FEVER Heparin Sodium (Porcine) 5,000 unit 12/26/18 06:00 12/26/18 14:59 Heparin - SQ 5,000 unit TID CHAITANYA Administration Sodium Chloride 1,000 mls @ 100 mls/hr 12/26/18 14:16 12/26/18 14:41 Normal Saline - IV 100 mls/hr ASDIR CHAITANYA Administration Vancomycin HCl 1,250 mg/ 250 mls @ 250 mls/2 hr 12/27/18 10:00 Dextrose IVPB DAILY@1000 CHAITANYA Protocol Piperacillin Sod/Tazobactam 100 mls @ 200 mls/hr 12/26/18 18:00 Sod 4.5 gm/ Dextrose IVPB Q8H-IV CHAITANYA Protocol Nystatin 1 applic 12/26/18 22:00 Mycostatin Cream - TP BID CHAITANYA ASSESSMENT/PLAN: Pt is a 63 M with PMH 4.5 cm aortic aneurysm in June 2018 at [facility], right femur repair 2 years ago, COPD, C. diff and Klebsiella infections, duodenal ulcder, and HTN presenting to the ED c/o 1 week history of shortness of breath. leukocytosis, thrombocytosis, anemia -? leukemia vs sepsis -weight loss, smoking history, fatigue, -TSH, Fe studies, B12, Folate -f/u PEP. of note, a:g ratio may be falsely low in the setting of hypoalbuminemia -may need FISH/flow cytometry -may consider BM Bx -had EGD in June but no colonoscopy Dispo: We will continue to follow the patient. Thank you for this consultative opportunity. Visit type - Emergency Visit Emergency Visit: No - New Patient This patient is new to me today: Yes Date on this admission: 12/26/18 - Critical Care Critical Care patient: No ATTENDING PHYSICIAN STATEMENT I saw and evaluated the patient. I reviewed the resident's note and discussed the case with the resident. I agree with the resident's findings and plan as documented. SUBJECTIVE: OBJECTIVE: ASSESSMENT AND PLAN:
--- NOTE | 2018-12-26 17:31 | CONSULT ---
Consult Consult Specialty:: General Surgery Referred by:: Thai Mccormick Reason for Consultation:: distended gallbladder, abd pain - History of Present Illness Chief Complaint: abdominal pain, anorexia, exertional dyspnea, weight loss History of Present Illness: 63yo M heroin user and smoker until recently, with HTN, thoracic and abdominal aortic aneurysms, h/o right femoral fx repair 2 yrs ago, C. diff June 2018, who presented with 2 weeks of central abdominal pain ("not a hard pain, more like discomfort") and SOB with exertion (walking 25' - much less than usually able to ), associated with anorexia this last week ("I haven't eaten hardly anything in 6 days") and weight loss in the last few months (from chart). He does not seem to relate the pain to eating or not doing so. 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 Last BM was yesterday, soft, formed, brown, small. Last snorted heroin yesterday; denies ever using IV. He denies previous colonoscopy or EGD. Patient is marginally cooperative, poor historian, and c/o too many doctors seeing him today - he just wants to sleep. He had some food today; he says it is the first he's really had in a while. He asked for and took some water during exam, though seemed to take some effort to swallow and noted some difficulty with doing so. In ER, he is afebrile, tachycardic with BPs in 90s and 100s systolic, with leukocytosis and left shift, dehydrated with albumin 1.3 and elevated BUN/Cr, dark yellow urine in urinals at bedside. Alk phos is mildly elevated, LFTs otherwise normal, no lipase sent. Lactate normal. 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 He was started on IV fluids and antibiotics. Surgery was asked to assess. He is seen and examined still in ER, awaiting a bed, resting on his stretcher. He does not want to move much, nor answer a lot of questions. He gave the above history, but really preferred to be left alone. - History Source History Provided By: Patient, Medical Record Limitations to Obtaining History: Poor Historian - Past Medical History Cardio/Vascular: Yes: HTN Infectious Disease: Yes: C-Diff (06/25) Psych: Yes: Addictions (heroin via snorting) - Past Surgical History Past Surgical History: No: Colonoscopy (pt denies), Upper Endoscopy (pt denies) Additional Surgical History: right femur fx repair 2 yrs ago - Alcohol/Substance Use Hx Alcohol Use: No History of Substance Use: reports: Heroin (snorts, no IV use) - Smoking History Smoking history: Former smoker Have you smoked in the past 12 months: Yes Aproximately how many cigarettes per day: 10 If you are a former smoker, when did you quit?: ~1 month per pt - Social History ADL: Independent 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 Loss. denies: Chills, Fever Eyes: denies: Blurred Vision, Recent Change in Vision HENT: reports: Difficult Swallowing. denies: Throat Pain Neck: denies: Swollen Glands, Tenderness Cardiovascular: denies: Chest Pain, Palpitations Respiratory: reports: SOB on Exertion (at about 25 feet of walking, new in last couple weeks). denies: Cough, SOB Gastrointestinal: reports: Abdominal Pain (with hpi). denies: Constipation, Diarrhea, Indigestion, Melena, Nausea, Rectal Bleeding, Vomiting Genitourinary: denies: Burning, Dysuria Musculoskeletal: reports: Back Pain (gets with driving, not new). denies: Joint Pain, Muscle Pain Integumentary: denies: Change in Color, Rash Neurological: denies: Dizziness, Headache Endocrine: reports: Unexplained Weight Loss Physical Exam Vital Signs: Vital Signs Temperature 98.5 F 12/26/18 15:02 Pulse Rate 129 H 12/26/18 15:02 Respiratory Rate 17 12/26/18 15:02 Blood Pressure 99/62 12/26/18 15:02 O2 Sat by Pulse Oximetry (%) 100 12/26/18 15:02 Constitutional: Yes: No Distress, Calm, Cachectic Eyes: Yes: Conjunctiva Clear, EOM Intact. No: Sclera Icterus HENT: Yes: Atraumatic, Normocephalic Neck: Yes: Supple, Trachea Midline Cardiovascular: Yes: Tachycardia. No: Pulse Irregular Respiratory: Yes: Regular, CTA Bilaterally, Other (poor cooperation with exam) Gastrointestinal: Yes: Normal Bowel Sounds, Soft, Tenderness, Epigastrium. No: Distention, Tenderness (right upper and mid-abdomen), Tenderness, Rebound (no santino/guarding) ...Rectal Exam: Yes: Deferred Renal/: Yes: CVA Tenderness - Right (tender over right flank/cva region). No : CVA Tenderness - Left Musculoskeletal: No: Joint Stiffness, Joint Swelling Extremities: No: Cool, Cyanosis Edema: No Peripheral Pulses WNL: Yes Integumentary: No: Jaundice, Rash Neurological: Yes: Alert, Oriented, Lethargy Psychiatric: Yes: Alert, Oriented, Other (poorly cooperative, tired) Labs: CBC, BMP 12/26/18 05:50 12/26/18 05:50 CMP Sodium 135 mmol/L (136-145) L 12/26/18 05:50 Potassium 3.7 mmol/L (3.5-5.1) 12/26/18 05:50 Chloride 100 mmol/L (98-107) 12/26/18 05:50 Carbon Dioxide 25 mmol/L (21-32) 12/26/18 05:50 Anion Gap 9 MMOL/L (8-16) 12/26/18 05:50 BUN 26.3 mg/dL (7-18) H 12/26/18 05:50 Creatinine 1.2 mg/dL (0.55-1.3) 12/26/18 05:50 Est GFR (CKD-EPI)AfAm 73.62 12/26/18 05:50 Est GFR (CKD-EPI)NonAf 63.52 12/26/18 05:50 Random Glucose 71 mg/dL (74-106) L 12/26/18 05:50 Serum Osmolality 286 mosm/kg (278-305) 12/26/18 05:50 Lactic Acid 0.9 mmol/L (0.4-2.0) 12/25/18 23:00 Calcium 7.2 mg/dL (8.5-10.1) L 12/26/18 05:50 Phosphorus 4.3 mg/dL (2.5-4.9) 12/26/18 05:50 Magnesium 1.7 mg/dL (1.8-2.4) L 12/26/18 05:50 Total Bilirubin 0.6 mg/dL (0.2-1) 12/26/18 05:50 AST 26 U/L (15-37) 12/26/18 05:50 ALT 12 U/L (13-61) L 12/26/18 05:50 Alkaline Phosphatase 258 U/L (45-117) H 12/26/18 05:50 Troponin I < 0.02 ng/ml (0.00-0.05) 12/25/18 17:40 C-Reactive Protein 23.9 MG/DL (0.00-0.3) H 12/26/18 05:50 B-Natriuretic Peptide 1287.5 pg/ml (5-125) H 12/25/18 17:40 Total Protein 6.5 g/dl (6.4-8.2) 12/26/18 05:50 Albumin 1.3 g/dl (3.4-5.0) L 12/26/18 05:50 TSH 1.10 uIU/ml (0.358-3.74) D 12/26/18 05:50 INR, PTT INR 1.49 (0.83-1.09) H 12/25/18 17:40 Urine Test Results Urine Color Yellow 12/25/18 21:07 Urine Appearance Clear 12/25/18 21:07 Urine pH 5.5 (5.0-8.0) 12/25/18 21:07 Ur Specific [place] 1.040 (1.010-1.035) H 12/25/18 21:07 Urine Protein 1+ (NEGATIVE) H 12/25/18 21:07 Urine Glucose (UA) Negative (NEGATIVE) 12/25/18 21:07 Urine Ketones Negative (NEGATIVE) 12/25/18 21:07 Urine Blood Trace (NEGATIVE) 12/25/18 21:07 Urine Nitrite Negative (NEGATIVE) 12/25/18 21:07 Urine Bilirubin Negative (NEGATIVE) 12/25/18 21:07 Ur Leukocyte Esterase Negative (NEGATIVE) 12/25/18 21:07 wbc from 25 albumin very low dehydrated alk phos elevated but down slightly no lipase tested lactate normal anemic Imaging - Results Cat Scan: Report Reviewed, Image Reviewed (hepatomegaly, distended gallbladder, aortic aneurysms without dissection, no acute intestinal findings, no free fluid , no free air, + renal cysts and malrotated left kidney; bullae with mod severe COPD) Ultrasound: Report Reviewed, Image Reviewed (hepatomegaly, gallbladder distended (12cm) with few stones/sludge dependent, no signs cholecystitis, no biliary ductal dilation, pancreatic duct mildly dilated, no ascites) Problem List - Problems (1) Dehydration Code(s): E86.0 - DEHYDRATION (2) Severe protein-calorie malnutrition Code(s): E43 - UNSPECIFIED SEVERE PROTEIN-CALORIE MALNUTRITION (3) Weight loss Code(s): R63.4 - ABNORMAL WEIGHT LOSS (4) SOB (shortness of breath) Code(s): R06.02 - SHORTNESS OF BREATH (5) Heroin addiction Code(s): F11.20 - OPIOID DEPENDENCE, UNCOMPLICATED (6) HTN (hypertension) Code(s): I10 - ESSENTIAL (PRIMARY) HYPERTENSION Qualifiers: Hypertension type: essential hypertension Qualified Code(s): I10 - Essential (primary) hypertension (7) AAA (abdominal aortic aneurysm) Code(s): I71.4 - ABDOMINAL AORTIC ANEURYSM, WITHOUT RUPTURE Qualifiers: Presence of rupture: without rupture Assessment/Plan Patient with central abdominal pain and dyspnea on exertion over short distances for about 2 weeks, associated with anorexia in last week, and weight loss over last several months. Regular heroin user, quit smoking cigarettes very recently. Known aortic aneurysms without dissection or rupture. Dehydrated, with severely low albumin, anemia, leukocytosis with left shift, mildly elevated alk phos but not other LFTs. Tachycardic, dark yellow urine. Hydropic gallbladder, but poor po intake for about a week. No signs cholecystitis on imaging. Hepatomegaly. INR mildly elevated. Tender over upper/mid/right abdomen but pain centered around umbilicus. No N/V, F/C, diarrhea or constipation. No known source of blood loss. Doubt acute biliary source of leukocytosis or symptoms. Check lipase Consider checking tumor markers (CEA, Ca 19.9, etc) Would check stool for occult blood and C. diff, given hx of same 6 mos ago, despite no current diarrhea. Workup for occult malignancy in process - agree with considering EGD/ colonoscopy by GI. Tolerating po in ER - if eating does not make pain worse, probably ok to allow diet, unless NPO needed for studies. Continue IV hydration; transfuse blood for Hb <7 Pt is on antibiotics with ID on board Anticipate likely withdrawal symptoms from heroin - would consult detox physician Will follow up; discussed with Dr. Mccormick of primary team
--- NOTE | 2018-12-26 18:13 | PN ---
Physical Exam: SUBJECTIVE: Patient seen and examined 63 y/o M, pmh of thoracic and abdominal aortic aneurysm dx at [facility] in june of 2018, right femur surgery 2 years ago, COPD, HTN presented for sob of 1 week duration. Today pt appears lethargic and has decreased speech. Pt is otherwise in no acute distress. Pt reports his sob has improved and he has no c/o. Pt is afebrile and asymptomatic. Denies f/c/n/v/d/sob/chest pain. OBJECTIVE: Vital Signs Period Temp Pulse Resp BP Sys/Easton Pulse Ox Last 24 Hr 97.9 F-98.5 F 88-129 17-19 98-108/62-64 97-100 GENERAL: The patient is awake, alert, and fully oriented, appears cachetic and has decreased speech. EYES: PERRL, extraocular movements intact. Dry conjunctiva. No ptosis. Not well groomed NECK: full range of motion, supple. LUNGS: Breath sounds equal, clear to auscultation bilaterally, no wheezes, no crackles, HEART: Regular rate and rhythm, S1, S2 without murmur, rub or gallop. ABDOMEN: Soft, nontender, nondistended, normoactive bowel sounds, hepatomegaly is present, no masses. EXTREMITIES: 2+ pulses, warm, no edema. RUE: Hydradenitis- purulent discharge LUE: Hydradenitis- no discharge NEUROLOGICAL: Cranial nerves II through XII grossly intact. SKIN: Warm, dry skin, no rashes or lesions noted Laboratory Results - last 24 h CBC,CMP WBC 28.7 K/mm3 (4.0-10.0) H 12/26/18 05:50 RBC 2.81 M/mm3 (4.00-5.60) L 12/26/18 05:50 Hgb 7.9 GM/dL (11.7-16.9) L 12/26/18 05:50 Hct 24.1 % (35.4-49) L 12/26/18 05:50 MCV 85.8 fl (80-96) 12/26/18 05:50 MCH 28.2 pg (25.7-33.7) 12/26/18 05:50 MCHC 32.8 g/dl (32.0-35.9) 12/26/18 05:50 RDW 17.0 % (11.9-15.9) H 12/26/18 05:50 Plt Count 540 K/MM3 (134-434) H 12/26/18 05:50 MPV 7.3 fl (7.5-11.1) L 12/26/18 05:50 Absolute Neuts (auto) 25.9 K/mm3 (1.5-8.0) H 12/26/18 05:50 Neutrophils % 90.3 % (42.8-82.8) H 12/26/18 05:50 Neutrophils % (Manual) 88.9 % (42.8-82.8) H 12/26/18 05:50 Band Neutrophils % 2.0 % 12/26/18 05:50 Lymphocytes % 2.7 % (8-40) L 12/26/18 05:50 Lymphocytes % (Manual) 2.0 % (8-40) L D 12/26/18 05:50 Monocytes % 6.8 % (3.8-10.2) 12/26/18 05:50 Monocytes % (Manual) 5 % (3.8-10.2) 12/26/18 05:50 Eosinophils % 0.0 % (0-4.5) 12/26/18 05:50 Eosinophils % (Manual) 0.0 % (0-4.5) 12/26/18 05:50 Basophils % 0.2 % (0-2.0) 12/26/18 05:50 Basophils % (Manual) 0.0 % (0-2.0) 12/26/18 05:50 Myelocytes % (Man) 0 % (0-2) D 12/26/18 05:50 Promyelocytes % (Man) 0 % (0-2) 12/26/18 05:50 Blast Cells % (Manual) 0 % (0-0) 12/26/18 05:50 Nucleated RBC % 0 % (0-0) 12/26/18 05:50 Metamyelocytes 0 % (0-2) 12/26/18 05:50 Hypersegmented Neuts Few 12/25/18 15:56 Platelet Estimate Increased 12/26/18 05:50 Platelet Comment No clumping noted 12/25/18 17:40 Anisocytosis 1+ 12/26/18 05:50 ESR Cancelled 12/26/18 05:50 Sodium 135 mmol/L (136-145) L 12/26/18 05:50 Potassium 3.7 mmol/L (3.5-5.1) 12/26/18 05:50 Chloride 100 mmol/L (98-107) 12/26/18 05:50 Carbon Dioxide 25 mmol/L (21-32) 12/26/18 05:50 Anion Gap 9 MMOL/L (8-16) 12/26/18 05:50 BUN 26.3 mg/dL (7-18) H 12/26/18 05:50 Creatinine 1.2 mg/dL (0.55-1.3) 12/26/18 05:50 Est GFR (CKD-EPI)AfAm 73.62 12/26/18 05:50 Est GFR (CKD-EPI)NonAf 63.52 12/26/18 05:50 Random Glucose 71 mg/dL (74-106) L 12/26/18 05:50 Serum Osmolality 286 mosm/kg (278-305) 12/26/18 05:50 Lactic Acid 0.9 mmol/L (0.4-2.0) 12/25/18 23:00 Calcium 7.2 mg/dL (8.5-10.1) L 12/26/18 05:50 Phosphorus 4.3 mg/dL (2.5-4.9) 12/26/18 05:50 Magnesium 1.7 mg/dL (1.8-2.4) L 12/26/18 05:50 Total Bilirubin 0.6 mg/dL (0.2-1) 12/26/18 05:50 AST 26 U/L (15-37) 12/26/18 05:50 ALT 12 U/L (13-61) L 12/26/18 05:50 Alkaline Phosphatase 258 U/L (45-117) H 12/26/18 05:50 Troponin I < 0.02 ng/ml (0.00-0.05) 12/25/18 17:40 C-Reactive Protein 23.9 MG/DL (0.00-0.3) H 12/26/18 05:50 B-Natriuretic Peptide 1287.5 pg/ml (5-125) H 12/25/18 17:40 Total Protein 6.5 g/dl (6.4-8.2) 12/26/18 05:50 Albumin 1.3 g/dl (3.4-5.0) L 12/26/18 05:50 TSH 1.10 uIU/ml (0.358-3.74) D 12/26/18 05:50 Active Medications Current Medications Acetaminophen (Tylenol -) 650 mg PO Q4H PRN PRN Reason: FEVER Last Admin: 12/26/18 03:42 Dose: 650 mg Heparin Sodium (Porcine) (Heparin -) 5,000 unit SQ TID CHAITANYA Last Admin: 12/26/18 14:59 Dose: 5,000 unit Sodium Chloride (Normal Saline -) 1,000 mls @ 100 mls/hr IV ASDIR CHAITANYA Last Admin: 12/26/18 14:41 Dose: 100 mls/hr Vancomycin HCl 1,250 mg/ (Dextrose) 250 mls @ 250 mls/2 hr IVPB DAILY@1000 CHAITANYA ; Protocol Piperacillin Sod/Tazobactam (Sod 4.5 gm/ Dextrose) 100 mls @ 200 mls/hr IVPB Q8H-IV CHAITANYA; Protocol Nystatin (Mycostatin Cream -) 1 applic TP BID CHAITANYA Home Medications Medication Instructions Recorded Losartan 50Mg/Hctz 12.5MG [Hyzaar 50 mg PO DAILY 12/25/18 -] ASSESSMENT/PLAN: 63 y/o M, pmh of thoracic and abdominal aortic aneurysm dx at [facility] in june of 2018, right femur surgery 2 years ago, COPD, HTN presented for sob of 1 week duration is admitted for leukocytosis, w/ source unknown #Leukocytosis, source unknown Possible for MD/AML if source remains unknown PE is evident for hydradenitis b/l w/ left draining purulent discharge CT shows dilated Gallbladder, hepatomegaly and scarring in b/l lungs. US abdomen- distended GB 12.2cm, hepatomegaly 22.4cm, AAA 4.5cm, pancreatic duct mildly dilated 3.7cm Surgery consulted Continue Zosyn , ID consult appreciated monitor C-diff if pt develops diarrhea #AAA As per Dr. Saavedra, thoracic aortic aneurysm is actually > 5cm Consulted Dr. Rose- will f/u #Anemia- normocytic r/o MDS, since iron studies in the past have been normal, B12 and folate is normal. Heme/onc- Dr. Lara consulted #Cachexia/weight loss unexplained likely 2/2 to malignancy Will discuss with Heme/Onc EGD in past showed chornic inflammation #Heroin abuse monitor for now in the setting no withdrawal symptoms will consider detox if pt withdraws #HTN hold losartan/HCTZ #DVT ppx heparin sq FEN sodium controlled diet, IVF NS at 100 Dispo: f/u with surgery, heme/onc and vascular in the am Visit type - Emergency Visit Emergency Visit: Yes ED Registration Date: 12/25/18 Care time: The patient presented to the Emergency Department on the above date and was hospitalized for further evaluation of their emergent condition. - New Patient This patient is new to me today: Yes Date on this admission: 12/26/18 - Critical Care Critical Care patient: No - Discharge Referral Referred to [facility] No ATTENDING PHYSICIAN STATEMENT I saw and evaluated the patient. I reviewed the resident's note and discussed the case with the resident. I agree with the resident's findings and plan as documented. SUBJECTIVE: OBJECTIVE: ASSESSMENT AND PLAN:
[2018-12-26] MEDS ORDERED: PIPERACILLIN/TAZOBACTAM 4.5 GM VIAL IVPB ONE (18:25)
[2018-12-26] MEDS ORDERED: DEXTROSE 5%-WATER 100 ML IVPB ONE (18:25)
[2018-12-26] MEDS: PIPERACILLIN/TAZOB 4.5 GM 4.5 GM in DEXTROSE 5%-WATER 100 ML IVPB SCH (18:30)
[2018-12-26] MEDS: NYSTATIN 100,000 UNIT/GM TOPICAL CREAM 15 GM TUBE TP SCH (21:24)
[2018-12-26] MEDS: D5-1/2NS+20 MEQ KCL - 20 MEQ/1,000 ML INFUS.BAG IV SCH (21:26)
[2018-12-27] MEDS ORDERED: DEXTROSE 5%-WATER 100 ML IVPB ONE ×3 (01:17→17:59)
[2018-12-27] MEDS ORDERED: PIPERACILLIN/TAZOBACTAM 4.5 GM VIAL IVPB ONE ×3 (01:17→17:59)
[2018-12-27] MEDS: PIPERACILLIN/TAZOB 4.5 GM 4.5 GM in DEXTROSE 5%-WATER 100 ML IVPB SCH ×3 (01:30→18:01)
[2018-12-27] MEDS: HEPARIN NA (PORCINE) 5,000 UNITS/ML 1ML VIAL SQ SCH ×3 (05:58→22:35)
[2018-12-27 06:59] LABS: BASO % 0.3 % (0-2.0); EOS % 0.4 % (0-4.5); HEMATOCRIT 22.8 % (35.4-49); HEMOGLOBIN 7.3 GM/dL (11.7-16.9); LYMPH % 10.7 % (8-40); MCH 27.5 pg (25.7-33.7); MCHC 32.2 g/dl (32.0-35.9); MEAN CELL VOLUME 85.6 fl (80-96); MEAN PLT VOLUME 7.2 fl (7.5-11.1); MONO % 6.8 % (3.8-10.2); NEUT % 81.8 % (42.8-82.8); PLATELET COUNT 515 K/MM3 (134-434); RBC 2.67 M/mm3 (4.00-5.60); RDW 16.9 % (11.9-15.9); RETICULOCYTES 1.06 % (0.5-1.5); WHITE BLOOD COUNT 15.9 K/mm3 (4.0-10.0)
[2018-12-27 07:38] LABS: BILIRUBIN,TOTAL 0.5 mg/dL (0.2-1); BLOOD UREA NITROGEN 18.4 mg/dL (7-18); CREATININE 1.1 mg/dL (0.55-1.3); POTASSIUM 3.4 mmol/L (3.5-5.1); TOT PROT 5.6 g/dl (6.4-8.2)
[2018-12-27 07:41] LABS: CALCIUM 6.8 mg/dL (8.5-10.1)
[2018-12-27] MEDS ORDERED: POTASSIUM CHLORIDE TABS 20 MEQ TABLET.ER (FP) PO ONE (08:11)
[2018-12-27] MEDS ORDERED: PT OWN MED DRAWER 7, Y5N ONE (09:12)
[2018-12-27] MEDS: VANCOMYCIN HCL 1,250 MG in DEXTROSE 5%-WATER - 250 ML IVPB SCH (09:12)
--- NOTE | 2018-12-27 09:39 | PN ---
Teaching Attending Note Name of Resident: Alvarez Black ATTENDING PHYSICIAN STATEMENT I saw and evaluated the patient. I reviewed the resident's note and discussed the case with the resident. I agree with the resident's findings and plan as documented. SUBJECTIVE: Patient is c/o having diarrhea , he states that he is withdrawing and asking for methadone. Vital Signs Temperature 97.8 F 12/27/18 02:00 Pulse Rate 92 H 12/27/18 06:00 Respiratory Rate 20 12/27/18 06:00 Blood Pressure 94/66 12/27/18 06:00 O2 Sat by Pulse Oximetry (%) 96 12/26/18 21:00 GENERAL: The patient is awake, alert, and fully oriented, in no acute distress. cachectic looking HEAD: Normal with no signs of trauma. EYES: PERRL, extraocular movements intact, sclera anicteric, conjunctiva clear. ENT: Ears normal, oropharynx clear without exudates, moist mucous membranes. NECK: Trachea midline, full range of motion, supple. LUNGS: Breath sounds equal, clear to auscultation bilaterally, no wheezes, no crackles, no accessory muscle use. HEART: Regular rate and rhythm, S1, S2 without murmur, rub or gallop. ABDOMEN: Soft, mild tenderness, nondistended, normoactive bowel sounds, no guarding, no rebound, no hepatosplenomegaly, no masses. EXTREMITIES: 2+ pulses, warm, well-perfused, no edema. NEUROLOGICAL: Cranial nerves II through XII grossly intact. Normal speech, gait not observed. PSYCH: Normal mood,flat affect SKIN: Warm, dry, normal turgor, no rashes or lesions noted WBC 15.9 K/mm3 (4.0-10.0) H 12/27/18 06:05 RBC 2.67 M/mm3 (4.00-5.60) L 12/27/18 06:05 Hgb 7.3 GM/dL (11.7-16.9) L 12/27/18 06:05 Hct 22.8 % (35.4-49) L 12/27/18 06:05 MCV 85.6 fl (80-96) 12/27/18 06:05 MCHC 32.2 g/dl (32.0-35.9) 12/27/18 06:05 RDW 16.9 % (11.9-15.9) H 12/27/18 06:05 Plt Count 515 K/MM3 (134-434) H 12/27/18 06:05 MPV 7.2 fl (7.5-11.1) L 12/27/18 06:05 CMP Sodium 137 mmol/L (136-145) 12/27/18 06:05 Potassium 3.4 mmol/L (3.5-5.1) L 12/27/18 06:05 Chloride 105 mmol/L (98-107) 12/27/18 06:05 Carbon Dioxide 26 mmol/L (21-32) 12/27/18 06:05 Anion Gap 6 MMOL/L (8-16) L 12/27/18 06:05 BUN 18.4 mg/dL (7-18) H 12/27/18 06:05 Creatinine 1.1 mg/dL (0.55-1.3) 12/27/18 06:05 Random Glucose 92 mg/dL (74-106) 12/27/18 06:05 Calcium 6.8 mg/dL (8.5-10.1) L* 12/27/18 06:05 Total Bilirubin 0.5 mg/dL (0.2-1) 12/27/18 06:05 AST 26 U/L (15-37) 12/27/18 06:05 ALT 11 U/L (13-61) L 12/27/18 06:05 Alkaline Phosphatase 262 U/L (45-117) H 12/27/18 06:05 Total Protein 5.6 g/dl (6.4-8.2) L 12/27/18 06:05 Albumin 1.0 g/dl (3.4-5.0) L 12/27/18 06:05 CARDIAC ENZYMES Troponin I < 0.02 ng/ml (0.00-0.05) 12/25/18 17:40 Home Medications Medication Instructions Recorded Losartan 50Mg/Hctz 12.5MG [Hyzaar 50 mg PO DAILY 12/25/18 -] CTA: AAA 4.5cm at the level of diaghram, 4.5cm with aneurysm within midabdomen and 4.5cm aneurysm at the level of aortic bifurcation, there is dilatiation of the common iliac measuring 2.4cm and the left common iliac measuring 2.2cm. there is no evidence of dissection. Liver is 23.1 cm in craniocaudad dimension, no intrahepatic masses are identified. Microbiology 12/25/18 17:32 Blood - Peripheral Venous Blood Culture - Preliminary Non Lactose Fermenting Gnb 12/25/18 17:32 Blood - Peripheral Venous Blood Culture - Preliminary NO GROWTH OBTAINED AFTER 48 HOURS, INCUBATION TO CONTINUE FOR 3 DAYS. 12/25/18 21:07 Urine - Urine Clean Catch Urine Culture - Final NO GROWTH OBTAINED ASSESSMENT AND PLAN: Patient is a 63yo male with recent admission for C diff, Klebsiella bacteremia , heroin abuse, HTN, recent diagnosis of duodenal ulcer, aortic aneurysm, who presented [facility] then was sent here due to cough and SOB. # Acute Leukocytosis: Ascencio cx was done, growing gram negative bacteremia; Id on the case will continue with IV zosyn # Acute diarrhea with hx of Cdiff, stool is send for cdiff. will wait for the cx. # H/o AAA. CT scan was reviewed with Dr. Saavedra. aneurysm in thoracic aorta which was read as 4 cm , is actually > 5 cm . has AAA in abdominal aorta as well. will consult dr. Rose to evaluate the patient. #Chronic Normocytic anemia: iron studeis in June did not show evidence of iron def. B12 and folate were nl. SPEP with no M spike. # Hepatomegaly with anemia , and weight loss. MDS might needs to be r/o , heme consult appreciated # Weight loss: Unexplained. caanot r/o malignancy. TSH , was nl in 06/25. EGD with bx of duodenal ulcer showed chronic inflammation , colonoscopy was not performed # Heroin abuse. patient states that he is withdrawing and no signs of withdrawal . if he starts showing any signs , will place on methadone Detox protocol . # H/o HTN. BP on lower side. hold off on losartan /HCTZ Heparin sq
--- NOTE | 2018-12-27 09:52 | PN ---
Progress Note (short form) - Note Progress Note: feels better not SOB less abdominal discomfort Vital Signs Period Temp Pulse Resp BP Sys/Easton Pulse Ox Last 24 Hr 97.8 F-98.6 F 92-129 17-20 87-100/53-69 96-100 cor-rrr lungs decreased bs at bases abd soft,diffused discomfort to palpation, no rebound or guarding ext trace pedal edema CBC, BMP 12/27/18 06:05 12/27/18 06:05 Microbiology 12/25/18 17:32 Blood - Peripheral Venous Blood Culture - Preliminary NO GROWTH OBTAINED AFTER 24 HOURS, INCUBATION TO CONTINUE FOR 4 DAYS. 12/25/18 17:32 Blood - Peripheral Venous Blood Culture - Preliminary Pending Organism imp/reccd gram negative bacteremia diffuse abdominal pain anemia history of abdominal aneurysm continue zosyn ?GI malignancy await GI evaluation
--- NOTE | 2018-12-27 09:56 | CON.GI ---
Consult Consult Specialty:: Gastroenterology Referred by:: Dr. Shearer - History of Present Illness Chief Complaint: Weight loss, anemia History of Present Illness: 63yo male h/o aortic aneurysm, asthma/COPD, heroin abuse, C difficile colitis and gram negative bacteremia (06/2018) presenting with shortness of breath, poor po intake and weight loss. Pt reports worsening shortness of breath on exertion, fatigue, and poor po intake mostly over the past 1 week prompting ED evaluation. Reports poor appetite and weight loss approximately 20lbs over the past 2-3 months. Denies abdominal pain on my evaluation, denies n/v or fever/chills. Denies change in bowel pattern or diarrhea, denies melena or hematochezia. Notes some sensation of food sticking intermittently, recent EGD in 06/2018 revealing nodular appearing stomach and duodenal ulcerations, biopsies revealing gastritis and duodenitis (HP negative). No prior colonoscopy. No known family h/o GI malignancy. Smoked 1pk cigarettes daily for 30 years, stopped 1 month ago. Uses heroin daily , last used yesterday. Denies etoh use. CT and US revealing hepatomegaly, distended gallbladder with stones/sludge, mildly dilated PD, no biliary dilation. No evidence of cholecystitis. - History Source History Provided By: Patient, Medical Record - Past Medical History Cardio/Vascular: Yes: HTN Infectious Disease: Yes: C-Diff (06/25) Psych: Yes: Addictions (heroin via snorting) - Past Surgical History Past Surgical History: No: Colonoscopy (pt denies), Upper Endoscopy (pt denies) Additional Surgical History: right femur fx repair 2 yrs ago - Alcohol/Substance Use Hx Alcohol Use: No History of Substance Use: reports: Heroin (snorts, no IV use) - Smoking History Smoking history: Former smoker Have you smoked in the past 12 months: Yes Aproximately how many cigarettes per day: 10 If you are a former smoker, when did you quit?: ~1 month per pt - Social History ADL: Independent 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 Loss Cardiovascular: reports: No Symptoms Respiratory: reports: No Symptoms Gastrointestinal: reports: No Symptoms Musculoskeletal: reports: No Symptoms Neurological: reports: Other (some restlessness) Physical Exam-GI Vital Signs: Vital Signs Temperature 97.8 F 12/27/18 02:00 Pulse Rate 92 H 12/27/18 06:00 Respiratory Rate 20 12/27/18 06:00 Blood Pressure 94/66 12/27/18 06:00 O2 Sat by Pulse Oximetry (%) 96 12/26/18 21:00 Constitutional: Yes: No Distress, Cachectic, Other (slightly restless) Cardiovascular: Yes: WNL, Regular Rate and Rhythm Respiratory: Yes: WNL, Regular, CTA Bilaterally ...Palpate: Yes: Other (abd soft, nt, nd) Edema: No Labs: CBC, BMP 12/27/18 06:05 12/27/18 06:05 INR, PTT INR 1.49 (0.83-1.09) H 12/25/18 17:40 Imaging - Results Cat Scan: Report Reviewed, Image Reviewed Ultrasound: Report Reviewed Problem List - Problems (1) Weight loss Assessment/Plan: 63yo male h/o aortic aneurysm, asthma/COPD, heroin abuse, C difficile colitis and gram negative bacteremia presenting with shortness of breath, poor po intake and weight loss with leucocytosis and worsening anemia, no overt bleeding. CT and US imaging revealing distended GB, possible stones/sludge on US , mild PD dilation, no obvious biliary dilation. Mild alk phos elevation noted. EGD in 06/2018 revealing duodenal ulcerations (no H pylori). No prior colonoscopy. Concern is for underlying malignancy in setting of weight loss and GN bacteremia. -Recommend continue infectious workup, await remainder of culture results -Check c difficile if loose stool (denies diarrhea currently) -Would obtain MRCP to further evaluate the biliary tree and pancreas -Continue to monitor and correct electrolytes -While anemia likely multifactorial and appearing more consistent with chronic disease pt would require colonoscopy once further optimized -Further recommendations per hematology -Withdrawal precautions per primary team Code(s): R63.4 - ABNORMAL WEIGHT LOSS
--- NOTE | 2018-12-27 15:09 | PN ---
Progress Note, Physician History of Present Illness: Patient seen and examined in bed, resting comfortably. Wakes easily but is tired and wants to sleep. He states no pain currently, is tolerating diet. Says he now has diarrhea, dark. He is aware of need for sample to be collected. He c/ o significant back pain with CT yesterday; states he cannot lie flat/still in that tube again for MRI. He is only partially cooperative with physical exam, which is thus limited. - Current Medication List Current Medications: Active Medications Acetaminophen (Tylenol -) 650 mg PO Q4H PRN PRN Reason: FEVER Last Admin: 12/26/18 03:42 Dose: 650 mg Heparin Sodium (Porcine) (Heparin -) 5,000 unit SQ TID CHAITANYA Last Admin: 12/27/18 05:58 Dose: 5,000 unit Vancomycin HCl 1,250 mg/ (Dextrose) 250 mls @ 250 mls/2 hr IVPB DAILY@1000 CHAITANYA ; Protocol Last Admin: 12/27/18 09:12 Dose: 250 mls/2 hr Piperacillin Sod/Tazobactam (Sod 4.5 gm/ Dextrose) 100 mls @ 200 mls/hr IVPB Q8H-IV CHAITANYA; Protocol Last Admin: 12/27/18 09:11 Dose: 200 mls/hr Potassium Chloride/Dextrose/Sod Cl (D5-1/2ns+20 Meq Kcl -) 20 meq in 1,000 mls @ 100 mls/hr IV ASDIR CHAITANYA Last Admin: 12/26/18 21:26 Dose: 100 mls/hr Nystatin (Mycostatin Cream -) 1 applic TP BID [facility] Last Admin: 12/26/18 21:24 Dose: Not Given - Objective Vital Signs: Vital Signs Temperature 97.8 F 12/27/18 02:00 Pulse Rate 91 H 12/27/18 14:09 Respiratory Rate 20 12/27/18 14:09 Blood Pressure 95/59 L 12/27/18 14:09 O2 Sat by Pulse Oximetry (%) 96 12/26/18 21:00 Constitutional: Yes: No Distress, Calm, Cachectic Eyes: Yes: Conjunctiva Clear, EOM Intact. No: Sclera Icterus HENT: Yes: Atraumatic, Normocephalic Gastrointestinal: Yes: Soft. No: Distention, Tenderness, Tenderness, Epigastrium Extremities: Yes: Other (axillae with bilateral scarring, crusted areas; left with a tender spot not clearly visualized - drainage reported by medical team, he would not allow me to examine further to identify the affected region or any drainage). No: Cool, Cyanosis Integumentary: No: Jaundice, Rash Neurological: Yes: Alert, Oriented Labs: CBC, BMP 12/27/18 06:05 12/27/18 06:05 CMP Sodium 137 mmol/L (136-145) 12/27/18 06:05 Potassium 3.4 mmol/L (3.5-5.1) L 12/27/18 06:05 Chloride 105 mmol/L (98-107) 12/27/18 06:05 Carbon Dioxide 26 mmol/L (21-32) 12/27/18 06:05 Anion Gap 6 MMOL/L (8-16) L 12/27/18 06:05 BUN 18.4 mg/dL (7-18) H 12/27/18 06:05 Creatinine 1.1 mg/dL (0.55-1.3) 12/27/18 06:05 Est GFR (CKD-EPI)AfAm 81.79 12/27/18 06:05 Est GFR (CKD-EPI)NonAf 70.57 12/27/18 06:05 Random Glucose 92 mg/dL (74-106) 12/27/18 06:05 Serum Osmolality 286 mosm/kg (278-305) 12/26/18 05:50 Lactic Acid 0.9 mmol/L (0.4-2.0) 12/25/18 23:00 Calcium 6.8 mg/dL (8.5-10.1) L* 12/27/18 06:05 Phosphorus 4.3 mg/dL (2.5-4.9) 12/26/18 05:50 Magnesium 1.7 mg/dL (1.8-2.4) L 12/26/18 05:50 Iron 26 ug/dL (50-175) L 12/27/18 06:05 TIBC 82 ug/dL (250-450) L 12/27/18 06:05 Iron Saturation 31 % (17.5-39) 12/27/18 06:05 Unsaturated IBC 56 ug/dL (200-275) L 12/27/18 06:05 Ferritin 367.7 ng/ml (8-388) 12/27/18 06:05 Total Bilirubin 0.5 mg/dL (0.2-1) 12/27/18 06:05 AST 26 U/L (15-37) 12/27/18 06:05 ALT 11 U/L (13-61) L 12/27/18 06:05 Alkaline Phosphatase 262 U/L (45-117) H 12/27/18 06:05 Troponin I < 0.02 ng/ml (0.00-0.05) 12/25/18 17:40 C-Reactive Protein 23.9 MG/DL (0.00-0.3) H 12/26/18 05:50 B-Natriuretic Peptide 1287.5 pg/ml (5-125) H 12/25/18 17:40 Total Protein 5.6 g/dl (6.4-8.2) L 12/27/18 06:05 Albumin 1.0 g/dl (3.4-5.0) L 12/27/18 06:05 Lipase 90 U/L (73-393) 12/27/18 06:05 Vitamin B12 664 pg/ml (193-986) 12/27/18 06:05 Serum Folate 8 ng/mL (3.1-17.5) 12/27/18 06:05 TSH 1.10 uIU/ml (0.358-3.74) D 12/26/18 05:50 wbc down Hb down further K down - repleted orally BUN/Cr down further albumin down to 1.0 iron studies low alk phos still elevated lipase normal 90 Microbiology 12/25/18 21:07 Urine Culture - Final Urine - Urine Clean Catch NO GROWTH OBTAINED 12/25/18 17:32 Blood Culture - Preliminary Blood - Peripheral Venous NO GROWTH OBTAINED AFTER 24 HOURS, INCUBATION TO CONTINUE FOR 4 DAYS. 12/25/18 17:32 Blood Culture - Preliminary Blood - Peripheral Venous Pending Organism bacteremia pending culture ID - ....Imaging MRI: Pending Problem List - Problems (1) Dehydration Code(s): E86.0 - DEHYDRATION (2) Severe protein-calorie malnutrition Code(s): E43 - UNSPECIFIED SEVERE PROTEIN-CALORIE MALNUTRITION (3) Weight loss Code(s): R63.4 - ABNORMAL WEIGHT LOSS (4) SOB (shortness of breath) Code(s): R06.02 - SHORTNESS OF BREATH (5) Heroin addiction Code(s): F11.20 - OPIOID DEPENDENCE, UNCOMPLICATED (6) HTN (hypertension) Code(s): I10 - ESSENTIAL (PRIMARY) HYPERTENSION Qualifiers: Hypertension type: essential hypertension Qualified Code(s): I10 - Essential (primary) hypertension (7) AAA (abdominal aortic aneurysm) Code(s): I71.4 - ABDOMINAL AORTIC ANEURYSM, WITHOUT RUPTURE Qualifiers: Presence of rupture: without rupture Qualified Code(s): I71.4 - Abdominal aortic aneurysm, without rupture (8) Thoracic aortic aneurysm without rupture Code(s): I71.2 - THORACIC AORTIC ANEURYSM, WITHOUT RUPTURE (9) Abnormal findings on imaging of biliary tract Code(s): R93.2 - ABNORMAL FINDINGS ON DX IMAGING OF LIVER AND BILIARY TRACT (10) Periumbilical pain Code(s): R10.33 - PERIUMBILICAL PAIN (11) Bandemia Code(s): D72.825 - BANDEMIA (12) Tachycardia Code(s): R00.0 - TACHYCARDIA, UNSPECIFIED Assessment/Plan Patient admitted with central abdominal pain and dyspnea on exertion over short distances for about 2 weeks, associated with anorexia in last week, and weight loss over last several months. Regular heroin user, quit smoking cigarettes very recently. Known aortic aneurysms without dissection or rupture. Less dehydrated, with severely low albumin, iron-deficient anemia, leukocytosis with left shift, mildly elevated alk phos but not other LFTs. Tachycardic with marginal BPs. Hydropic gallbladder, but poor po intake for about a week, now eating. No signs cholecystitis on imaging. Hepatomegaly. INR mildly elevated. H/o Kleb bacteremia and C. diff in June. Workup in progress, possibly for occult malignancy. Now with no abdominal pain or tenderness + diarrhea -- stool OB and C. diff pending collection tolerating diet - consider protein supplementation Doubt acute biliary source of leukocytosis or symptoms MRI/MRCP ordered to evaluate biliary tract and pancreas - pt may require medication to tolerate study GI consult noted - will likely need colonoscopy at some point Tumor markers pending Continue IV hydration, correct lytes prn; transfuse blood for Hb <7 Continue antibiotics per ID - blood culture positive, + hidradenitis with tender , draining left axilla
[2018-12-27] MEDS: NYSTATIN 100,000 UNIT/GM TOPICAL CREAM 15 GM TUBE TP SCH ×2 (16:17→22:35)
--- NOTE | 2018-12-27 17:04 | PN ---
Physical Exam: SUBJECTIVE: Patient seen and examined 63 y/o M, pmh of thoracic and abdominal aortic [facility], right femur surgery 2 years ago, COPD, HTN presented for sob of 1 week duration. Today pt is doing well. States that he feels better and his breathing has improved. Reports that he is tolerating diet and has no other c/o. No overnight events. Pt is afebrile and asymptomatic. Denies f/c/n/v/d/sob/chest pain. OBJECTIVE: Vital Signs Period Temp Pulse Resp BP Sys/[place] Pulse Ox Last 24 Hr 97.8 F-98.6 F 91-123 18-20 87-100/53-69 96-100 GENERAL: The patient is awake, alert, and fully oriented, appears cachetic, has normal speech EYES: PERRL, extraocular movements intact. Dry conjunctiva. No ptosis. Not well groomed NECK: full range of motion, supple. Right lower jaw swelling appreciated, likely LAD LUNGS: Breath sounds equal, clear to auscultation bilaterally, no wheezes, no crackles, HEART: Regular rate and rhythm, S1, S2 without murmur, rub or gallop. ABDOMEN: Soft, nontender, nondistended, normoactive bowel sounds, hepatomegaly is present, no masses. EXTREMITIES: 2+ pulses, warm, no edema. RUE: Hydradenitis- purulent discharge- still remains LUE: Hydradenitis- no discharge NEUROLOGICAL: Cranial nerves II through XII grossly intact. SKIN: Warm, dry skin, no rashes or lesions noted Laboratory Results - last 24 hr CBC,CMP WBC 15.9 K/mm3 (4.0-10.0) H 12/27/18 06:05 RBC 2.67 M/mm3 (4.00-5.60) L 12/27/18 06:05 Hgb 7.3 GM/dL (11.7-16.9) L 12/27/18 06:05 Hct 22.8 % (35.4-49) L 12/27/18 06:05 MCV 85.6 fl (80-96) 12/27/18 06:05 MCH 27.5 pg (25.7-33.7) 12/27/18 06:05 MCHC 32.2 g/dl (32.0-35.9) 12/27/18 06:05 RDW 16.9 % (11.9-15.9) H 12/27/18 06:05 Plt Count 515 K/MM3 (134-434) H 12/27/18 06:05 MPV 7.2 fl (7.5-11.1) L 12/27/18 06:05 Absolute Neuts (auto) 13.0 K/mm3 (1.5-8.0) H 12/27/18 06:05 Neutrophils % 81.8 % (42.8-82.8) 12/27/18 06:05 Neutrophils % (Manual) 88.9 % (42.8-82.8) H 12/26/18 05:50 Band Neutrophils % 2.0 % 12/26/18 05:50 Lymphocytes % 10.7 % (8-40) D 12/27/18 06:05 Lymphocytes % (Manual) 2.0 % (8-40) L D 12/26/18 05:50 Monocytes % 6.8 % (3.8-10.2) 12/27/18 06:05 Monocytes % (Manual) 5 % (3.8-10.2) 12/26/18 05:50 Eosinophils % 0.4 % (0-4.5) D 12/27/18 06:05 Eosinophils % (Manual) 0.0 % (0-4.5) 12/26/18 05:50 Basophils % 0.3 % (0-2.0) 12/27/18 06:05 Basophils % (Manual) 0.0 % (0-2.0) 12/26/18 05:50 Myelocytes % (Man) 0 % (0-2) D 12/26/18 05:50 Promyelocytes % (Man) 0 % (0-2) 12/26/18 05:50 Blast Cells % (Manual) 0 % (0-0) 12/26/18 05:50 Nucleated RBC % 0 % (0-0) 12/27/18 06:05 Metamyelocytes 0 % (0-2) 12/26/18 05:50 Hypersegmented Neuts Few 12/25/18 15:56 Platelet Estimate Increased 12/26/18 05:50 Platelet Comment No clumping noted 12/25/18 17:40 Anisocytosis 1+ 12/26/18 05:50 ESR Cancelled 12/26/18 05:50 Retic Count 1.06 % (0.5-1.5) D 12/27/18 06:05 Sodium 137 mmol/L (136-145) 12/27/18 06:05 Potassium 3.4 mmol/L (3.5-5.1) L 12/27/18 06:05 Chloride 105 mmol/L (98-107) 12/27/18 06:05 Carbon Dioxide 26 mmol/L (21-32) 12/27/18 06:05 Anion Gap 6 MMOL/L (8-16) L 12/27/18 06:05 BUN 18.4 mg/dL (7-18) H 12/27/18 06:05 Creatinine 1.1 mg/dL (0.55-1.3) 12/27/18 06:05 Est GFR (CKD-EPI)AfAm 81.79 12/27/18 06:05 Est GFR (CKD-EPI)NonAf 70.57 12/27/18 06:05 Random Glucose 92 mg/dL (74-106) 12/27/18 06:05 Serum Osmolality 286 mosm/kg (278-305) 12/26/18 05:50 Lactic Acid 0.9 mmol/L (0.4-2.0) 12/25/18 23:00 Calcium 6.8 mg/dL (8.5-10.1) L* 12/27/18 06:05 Phosphorus 4.3 mg/dL (2.5-4.9) 12/26/18 05:50 Magnesium 1.7 mg/dL (1.8-2.4) L 12/26/18 05:50 Iron 26 ug/dL (50-175) L 12/27/18 06:05 TIBC 82 ug/dL (250-450) L 12/27/18 06:05 Iron Saturation 31 % (17.5-39) 12/27/18 06:05 Unsaturated IBC 56 ug/dL (200-275) L 12/27/18 06:05 Ferritin 367.7 ng/ml (8-388) 12/27/18 06:05 Total Bilirubin 0.5 mg/dL (0.2-1) 12/27/18 06:05 AST 26 U/L (15-37) 12/27/18 06:05 ALT 11 U/L (13-61) L 12/27/18 06:05 Alkaline Phosphatase 262 U/L (45-117) H 12/27/18 06:05 Troponin I < 0.02 ng/ml (0.00-0.05) 12/25/18 17:40 C-Reactive Protein 23.9 MG/DL (0.00-0.3) H 12/26/18 05:50 B-Natriuretic Peptide 1287.5 pg/ml (5-125) H 12/25/18 17:40 Total Protein 5.6 g/dl (6.4-8.2) L 12/27/18 06:05 Albumin 1.0 g/dl (3.4-5.0) L 12/27/18 06:05 Lipase 90 U/L (73-393) 12/27/18 06:05 Vitamin B12 664 pg/ml (193-986) 12/27/18 06:05 Serum Folate 8 ng/mL (3.1-17.5) 12/27/18 06:05 TSH 1.10 uIU/ml (0.358-3.74) D 12/26/18 05:50 Active Medications Current Medications Acetaminophen (Tylenol -) 650 mg PO Q4H PRN PRN Reason: FEVER Last Admin: 12/26/18 03:42 Dose: 650 mg Heparin Sodium (Porcine) (Heparin -) 5,000 unit SQ TID CHAITANYA Last Admin: 12/27/18 16:17 Dose: 5,000 unit Vancomycin HCl 1,250 mg/ (Dextrose) 250 mls @ 250 mls/2 hr IVPB DAILY@1000 CHAITANYA ; Protocol Last Admin: 12/27/18 09:12 Dose: 250 mls/2 hr Piperacillin Sod/Tazobactam (Sod 4.5 gm/ Dextrose) 100 mls @ 200 mls/hr IVPB Q8H-IV CHAITANYA; Protocol Last Admin: 12/27/18 09:11 Dose: 200 mls/hr Potassium Chloride/Dextrose/Sod Cl (D5-1/2ns+20 Meq Kcl -) 20 meq in 1,000 mls @ 100 mls/hr IV ASDIR CHAITANYA Last Admin: 12/26/18 21:26 Dose: 100 mls/hr Nystatin (Mycostatin Cream -) 1 applic TP BID CHAITANYA Last Admin: 12/27/18 16:17 Dose: Not Given Home Medications Medication Instructions Recorded Losartan 50Mg/Hctz 12.5MG [Hyzaar 50 mg PO DAILY 12/25/18 -] Microbiology 12/25/18 21:07 Urine - Urine Clean Catch Urine Culture - Final NO GROWTH OBTAINED 12/25/18 17:32 Blood - Peripheral Venous Blood Culture - Preliminary NO GROWTH OBTAINED AFTER 24 HOURS, INCUBATION TO CONTINUE FOR 4 DAYS. 12/25/18 17:32 Blood - Peripheral Venous Blood Culture - Preliminary Pending Organism ASSESSMENT/PLAN: 63 y/o M, pmh of thoracic and abdominal aortic [facility], right femur surgery 2 years ago, COPD, HTN presented for sob of 1 week duration is admitted for leukocytosis, w/ source unknown #Leukocytosis, source unknown Possible for MD/AML if source remains unknown PE is evident for hydradenitis b/l w/ left draining purulent discharge Surgery consult appreciated- Spoke to Dr. Beaulieu- biliary is not the likely source of leukocytosis F/u tumor markers TB test ordered- pending results ID consult appreciated Continue Zosyn , monitor C-diff if pt develops diarrhea GI consulted- appreciate recom MRCP ordered- pending results Colonoscopy can be considered once pt is medically optimized #AAA As per Dr. Saavedra, thoracic aortic aneurysm is actually > 5cm #Anemia- normocytic r/o MDS, since iron studies in the past have been normal, B12 and folate is normal. Heme/onc- Dr. Lara consulted #Cachexia/weight loss unexplained likely 2/2 to malignancy EGD in past showed chronic inflammation #Heroin abuse Detox physician consulted Dr Duran #Fungal infection of the foot Nystatin cream #DVT ppx heparin sq FEN sodium controlled diet, D5 + 1/2NS + KCL at 100 Dispo: heme/onc and vascular in the am, f/u Dr. Duran Visit type - Emergency Visit Emergency Visit: Yes ED Registration Date: 12/25/18 Care time: The patient presented to the Emergency Department on the above date and was hospitalized for further evaluation of their emergent condition. - New Patient This patient is new to me today: Yes Date on this admission: 12/28/18 - Critical Care Critical Care patient: No - Discharge Referral Referred to [facility] No ATTENDING PHYSICIAN STATEMENT I saw and evaluated the patient. I reviewed the resident's note and discussed the case with the resident. I agree with the resident's findings and plan as documented. SUBJECTIVE: OBJECTIVE: ASSESSMENT AND PLAN:
--- NOTE | 2018-12-27 19:03 | PN ---
Teaching Attending Note Name of Resident: Matheus Nguyen ATTENDING PHYSICIAN STATEMENT I saw and evaluated the patient. I reviewed the resident's note and discussed the case with the resident. I agree with the resident's findings and plan as documented. SUBJECTIVE: Patient seen and examined Presents with 20 + lb weight loss over last 3-4 months. Past smoking of 1ppd x 30 years - d/c 2 weeks ago. Sniffs heroin several x per week --last 2 days prior to admission Presented with anemia , thrombocytosis. Iron studies with low Fe++, low TIBC elevated ferritin compatible with chronic disease and cannot exclude compnent of of blood loss. WBC has decreased in hospital Hct has fallen Has developed diarrhea with black stools CT with COPD , interstitial changes, dilated aorta and multiple abdominal aneurysms without rupture. Last Vital Signs Temp Pulse Resp BP Pulse Ox 97.8 F 91 H 20 95/59 L 96 12/27/18 02:00 12/27/18 14:09 12/27/18 14:09 12/27/18 14:09 12/26/18 21:00 HEENT: MOY, EOM Intact Oropharynx: No thrush, No mucositis Neck: Supple Nodes: Without adenopathy Cor: RSR, No murmurs, No gallops Lungs: diminished breath sounds Abd: Soft, Normal bowel sounds, No organomegaly testes descended Ext:No significant edema Skin: No rashes, Integument intact CBC, BMP 12/27/18 06:05 12/27/18 06:05 Current Medications Generic Name Dose Route Start Last Admin Trade Name Freq PRN Reason Stop Dose Admin Acetaminophen 650 mg 12/25/18 20:50 12/26/18 03:42 Tylenol - PO 650 mg Q4H PRN Administration FEVER Heparin Sodium (Porcine) 5,000 unit 12/26/18 06:00 12/27/18 16:17 Heparin - SQ 5,000 unit TID CHAITANYA Administration Vancomycin HCl 1,250 mg/ 250 mls @ 250 mls/2 hr 12/27/18 10:00 12/27/18 09:12 Dextrose IVPB 250 mls/2 hr DAILY@1000 CHAITANYA Administration Protocol Piperacillin Sod/Tazobactam 100 mls @ 200 mls/hr 12/26/18 18:00 12/27/18 18: 01 Sod 4.5 gm/ Dextrose IVPB 200 mls/hr Q8H-IV CHAITANYA Administration Protocol Potassium Chloride/Dextrose/Sod Cl 20 meq in 1,000 mls @ 100 mls/hr 12/26/18 19:00 12/26/18 21:26 D5-1/2ns+20 Meq Kcl - IV 100 mls/hr ASDIR CHAITANYA Administration Nystatin 1 applic 12/26/18 22:00 12/27/18 16:17 Mycostatin Cream - TP Not Given BID CHAITANYA Impression: Weight loss, anemia, history of heroin abuse ( sniffing ) , history of 30 pack years. Iron studies suggest chronic disease -cannot exclude component of blood loss Thrombocytosis - may be reactive and is declining with antibiotics WBC is improving with antibiotic therapy Hepatomegaly with increase in alk phos. Multiple aortic aneurysmal dilatations 1 positive blood culture - to be further identified Patient will need in future GI assessment To monitor CBC for now Normal B-12, folate , TSH, No "M" component OBJECTIVE: ASSESSMENT AND PLAN:
[2018-12-28] MEDS ORDERED: PIPERACILLIN/TAZOBACTAM 4.5 GM VIAL IVPB ONE ×3 (00:54→15:55)
[2018-12-28] MEDS ORDERED: DEXTROSE 5%-WATER 100 ML IVPB ONE ×3 (00:54→15:55)
[2018-12-28] MEDS: PIPERACILLIN/TAZOB 4.5 GM 4.5 GM in DEXTROSE 5%-WATER 100 ML IVPB SCH ×3 (01:26→17:00)
[2018-12-28] MEDS: D5-1/2NS+20 MEQ KCL - 20 MEQ/1,000 ML INFUS.BAG IV SCH ×2 (02:30→16:05)
[2018-12-28] MEDS ORDERED: METHADONE HCL 10 MG TABLET PO ONE (02:43)
--- NOTE | 2018-12-28 02:48 | PN ---
Progress Note (short form) - Note Progress Note: Nurse called stating pt is restless, 2 episodes of diarrhea. Pt threatening to leave hospital if nothing is given for his withdrawals. Pt's an avid heroin user (2 bags/day X 10 yrs via sniffing). Pt admits to being in detox program taking 30 mg methadone previously. Spoke with pharmacy who agrees with starting 20mg for his detox.
[2018-12-28 07:34] LABS: HEMATOCRIT 22.1 % (35.4-49); HEMOGLOBIN 7.4 GM/dL (11.7-16.9); MCH 28.5 pg (25.7-33.7); MCHC 33.5 g/dl (32.0-35.9); MEAN CELL VOLUME 85.1 fl (80-96); PLATELET COUNT 510 K/MM3 (134-434); RDW 16.9 % (11.9-15.9); WHITE BLOOD COUNT 9.3 K/mm3 (4.0-10.0)
[2018-12-28 08:06] LABS: CARCINOEMBRYONIC ANTIGEN 2.8 ng/mL (0.0-4.7)
[2018-12-28 08:43] LABS: ALBUMIN 1.2 g/dl (3.4-5.0); BILIRUBIN,TOTAL 0.4 mg/dL (0.2-1); BLOOD UREA NITROGEN 15.8 mg/dL (7-18); CREATININE 1.1 mg/dL (0.55-1.3); POTASSIUM 3.7 mmol/L (3.5-5.1)
[2018-12-28] MEDS: NYSTATIN 100,000 UNIT/GM TOPICAL CREAM 15 GM TUBE TP SCH ×2 (10:14→22:22)
[2018-12-28] MEDS: VANCOMYCIN HCL 1,250 MG in DEXTROSE 5%-WATER - 250 ML IVPB SCH (11:24)
--- NOTE | 2018-12-28 12:54 | PN ---
Physical Exam: SUBJECTIVE: Patient seen and examined 63 y/o M, pmh of thoracic and abdominal aortic aneurysm dx at [facility] in june of 2018, right femur surgery 2 years ago, COPD, HTN presented for sob of 1 week duration. Pt states that he feels better and his breathing has improved. Reports that he is tolerating diet. He c/o diarrhea and reports that its because of his withdrawal from heroin and is demanding detox. Pt was aggravated over not receiving detox and threatened to leave AMA last night. Pt is afebrile and asymptomatic. Denies f/c/n/v/d/sob/chest pain. OBJECTIVE: Vital Signs Period Temp Pulse Resp BP Sys/Easton Pulse Ox Last 24 Hr 98.2 F-98.4 F 83-100 18-20 95-105/56-73 100-100 GENERAL: The patient is awake, alert, and fully oriented, appears cachetic, has normal speech EYES: PERRL, extraocular movements intact. Dry conjunctiva. No ptosis. Not well groomed NECK: full range of motion, supple. Right lower jaw swelling appreciated, likely LAD LUNGS: Breath sounds equal, clear to auscultation bilaterally, no wheezes, no crackles, HEART: Regular rate and rhythm, S1, S2 without murmur, rub or gallop. ABDOMEN: Soft, nontender, nondistended, normoactive bowel sounds, hepatomegaly is present, no masses. EXTREMITIES: 2+ pulses, warm, no edema. RUE: Hydradenitis- No discharge today LUE: Hydradenitis- no discharge NEUROLOGICAL: Cranial nerves II through XII grossly intact. SKIN: Warm, dry skin, no rashes or lesions noted Laboratory Results - last 24 hr CBC,CMP WBC 9.3 K/mm3 (4.0-10.0) 12/28/18 07:10 RBC 2.60 M/mm3 (4.00-5.60) L 12/28/18 07:10 Hgb 7.4 GM/dL (11.7-16.9) L 12/28/18 07:10 Hct 22.1 % (35.4-49) L 12/28/18 07:10 MCV 85.1 fl (80-96) 12/28/18 07:10 MCH 28.5 pg (25.7-33.7) 12/28/18 07:10 MCHC 33.5 g/dl (32.0-35.9) 12/28/18 07:10 RDW 16.9 % (11.9-15.9) H 12/28/18 07:10 Plt Count 510 K/MM3 (134-434) H 12/28/18 07:10 MPV 7.0 fl (7.5-11.1) L 12/28/18 07:10 Absolute Neuts (auto) 13.0 K/mm3 (1.5-8.0) H 12/27/18 06:05 Neutrophils % 81.8 % (42.8-82.8) 12/27/18 06:05 Neutrophils % (Manual) 88.9 % (42.8-82.8) H 12/26/18 05:50 Band Neutrophils % 2.0 % 12/26/18 05:50 Lymphocytes % 10.7 % (8-40) D 12/27/18 06:05 Lymphocytes % (Manual) 2.0 % (8-40) L D 12/26/18 05:50 Monocytes % 6.8 % (3.8-10.2) 12/27/18 06:05 Monocytes % (Manual) 5 % (3.8-10.2) 12/26/18 05:50 Eosinophils % 0.4 % (0-4.5) D 12/27/18 06:05 Eosinophils % (Manual) 0.0 % (0-4.5) 12/26/18 05:50 Basophils % 0.3 % (0-2.0) 12/27/18 06:05 Basophils % (Manual) 0.0 % (0-2.0) 12/26/18 05:50 Myelocytes % (Man) 0 % (0-2) D 12/26/18 05:50 Promyelocytes % (Man) 0 % (0-2) 12/26/18 05:50 Blast Cells % (Manual) 0 % (0-0) 12/26/18 05:50 Nucleated RBC % 0 % (0-0) 12/27/18 06:05 Metamyelocytes 0 % (0-2) 12/26/18 05:50 Hypersegmented Neuts Few 12/25/18 15:56 Platelet Estimate Increased 12/26/18 05:50 Platelet Comment No clumping noted 12/25/18 17:40 Anisocytosis 1+ 12/26/18 05:50 ESR Cancelled 12/26/18 05:50 Retic Count 0.70 % (0.5-1.5) D 12/28/18 07:10 Sodium 136 mmol/L (136-145) 12/28/18 07:10 Potassium 3.7 mmol/L (3.5-5.1) 12/28/18 07:10 Chloride 105 mmol/L (98-107) 12/28/18 07:10 Carbon Dioxide 26 mmol/L (21-32) 12/28/18 07:10 Anion Gap 5 MMOL/L (8-16) L 12/28/18 07:10 BUN 15.8 mg/dL (7-18) 12/28/18 07:10 Creatinine 1.1 mg/dL (0.55-1.3) 12/28/18 07:10 Est GFR (CKD-EPI)AfAm 81.79 12/28/18 07:10 Est GFR (CKD-EPI)NonAf 70.57 12/28/18 07:10 Random Glucose 93 mg/dL (74-106) 12/28/18 07:10 Serum Osmolality 286 mosm/kg (278-305) 12/26/18 05:50 Lactic Acid 0.9 mmol/L (0.4-2.0) 12/25/18 23:00 Calcium 7.0 mg/dL (8.5-10.1) L 12/28/18 07:10 Phosphorus 4.3 mg/dL (2.5-4.9) 12/26/18 05:50 Magnesium 1.7 mg/dL (1.8-2.4) L 12/26/18 05:50 Iron 26 ug/dL (50-175) L 12/27/18 06:05 TIBC 82 ug/dL (250-450) L 12/27/18 06:05 Iron Saturation 31 % (17.5-39) 12/27/18 06:05 Unsaturated IBC 56 ug/dL (200-275) L 12/27/18 06:05 Ferritin 367.7 ng/ml (8-388) 12/27/18 06:05 Total Bilirubin 0.4 mg/dL (0.2-1) 12/28/18 07:10 GGT 137 U/L (5-85) H 12/28/18 07:10 AST 30 U/L (15-37) 12/28/18 07:10 ALT 14 U/L (13-61) 12/28/18 07:10 Alkaline Phosphatase 292 U/L (45-117) H 12/28/18 07:10 LD Total 101 U/L (87-246) 12/28/18 07:10 Troponin I < 0.02 ng/ml (0.00-0.05) 12/25/18 17:40 C-Reactive Protein 23.9 MG/DL (0.00-0.3) H 12/26/18 05:50 B-Natriuretic Peptide 1287.5 pg/ml (5-125) H 12/25/18 17:40 Total Protein 6.0 g/dl (6.4-8.2) L 12/28/18 07:10 Total Protein (PEP) 6.4 g/dL (6.0-8.5) 12/26/18 05:35 Albumin 1.2 g/dl (3.4-5.0) L 12/28/18 07:10 Albumin (PEP) 1.6 gm/dl (2.9-4.4) L 12/26/18 05:35 Globulin 4.8 g/dL (2.2-3.9) H 12/26/18 05:35 Albumin/Globulin Ratio 0.3 (0.7-1.7) L 12/26/18 05:35 Beta Globulins 0.8 gm/dL (0.7-1.3) 12/26/18 05:35 Lipase 90 U/L (73-393) 12/27/18 06:05 Carcinoembryonic Ag 2.8 ng/mL (0.0-4.7) 12/27/18 06:05 CA 19-9 Antigen 61 U/mL (0-35) H 12/27/18 06:05 Vitamin B12 664 pg/ml (193-986) 12/27/18 06:05 Serum Folate 8 ng/mL (3.1-17.5) 12/27/18 06:05 TSH 1.10 uIU/ml (0.358-3.74) D 12/26/18 05:50 Active Medications Current Medications Acetaminophen (Tylenol -) 650 mg PO Q4H PRN PRN Reason: FEVER Last Admin: 12/26/18 03:42 Dose: 650 mg Heparin Sodium (Porcine) (Heparin -) 5,000 unit SQ TID CHAITANYA Last Admin: 12/27/18 22:35 Dose: 5,000 unit Vancomycin HCl 1,250 mg/ (Dextrose) 250 mls @ 250 mls/2 hr IVPB DAILY@1000 CHAITANYA ; Protocol Last Admin: 12/28/18 11:24 Dose: 250 mls/2 hr Piperacillin Sod/Tazobactam (Sod 4.5 gm/ Dextrose) 100 mls @ 200 mls/hr IVPB Q8H-IV CHAITANYA; Protocol Last Admin: 12/28/18 10:27 Dose: 200 mls/hr Potassium Chloride/Dextrose/Sod Cl (D5-1/2ns+20 Meq Kcl -) 20 meq in 1,000 mls @ 100 mls/hr IV ASDIR CHAITANYA Last Admin: 12/28/18 02:30 Dose: 100 mls/hr Nystatin (Mycostatin Cream -) 1 applic TP BID CHAITANYA Last Admin: 12/28/18 10:14 Dose: 1 film Home Medications Medication Instructions Recorded Losartan 50Mg/Hctz 12.5MG [Hyzaar 50 mg PO DAILY 12/25/18 -] Microbiology 12/28/18 03:30 Stool Clostridioides difficile Antigen - Final 12/28/18 03:30 Stool Clostridioides difficile Toxin Assay - Final 12/25/18 17:32 Blood - Peripheral Venous Blood Culture - Preliminary Non Lactose Fermenting Gnb 12/25/18 17:32 Blood - Peripheral Venous Blood Culture - Preliminary NO GROWTH OBTAINED AFTER 48 HOURS, INCUBATION TO CONTINUE FOR 3 DAYS. 12/25/18 21:07 Urine - Urine Clean Catch Urine Culture - Final NO GROWTH OBTAINED ASSESSMENT/PLAN: 63 y/o M, pmh of thoracic and abdominal aortic aneurysm dx at [facility] in june of 2018, right femur surgery 2 years ago, COPD, HTN presented for sob of 1 week duration is admitted for leukocytosis, w/ source unknown #Leukocytosis, source unknown PE is evident for hydradenitis b/l w/ left draining purulent discharge Leukocytosis now resolved- White count at 9.3 CA19-9 positive at 60 Continue Zosyn D3 and Vac D2 C- Diff positive for antigen but negative for toxin MRCP ordered- will be done by the end of the evening #AAA As per Dr. Saavedra, thoracic aortic aneurysm is actually > 5cm #Anemia- normocytic Heme/onc consult appreciated Monitor cbc for now SOBT neg #Elevated ALP Colonoscopy can be considered once pt is medically optimized Monitor CMP for now #Cachexia/weight loss unexplained likely 2/2 to malignancy EGD in past showed chronic inflammation #Heroin abuse Detox physician consulted Dr. Macdonald- we appreciate the consult Methadone taper started 15 mg Methadone today, 10 mg tomorrow and 5mg the day after #Fungal infection of the foot Nystatin cream #DVT ppx heparin sq FEN sodium controlled diet, D5 + 1/2NS + KCL at 100 Dispo: f/u Dr. Duran, f/u MRCP Visit type - Emergency Visit Emergency Visit: Yes ED Registration Date: 12/25/18 Care time: The patient presented to the Emergency Department on the above date and was hospitalized for further evaluation of their emergent condition. - New Patient This patient is new to me today: Yes Date on this admission: 12/28/18 - Critical Care Critical Care patient: No - Discharge Referral Referred to [facility] Med P.C[facility] No ATTENDING PHYSICIAN STATEMENT I saw and evaluated the patient. I reviewed the resident's note and discussed the case with the resident. I agree with the resident's findings and plan as documented. SUBJECTIVE: OBJECTIVE: ASSESSMENT AND PLAN:
[2018-12-28] MEDS: HEPARIN NA (PORCINE) 5,000 UNITS/ML 1ML VIAL SQ SCH ×3 (14:02→22:22)
--- NOTE | 2018-12-28 15:19 | PN ---
Progress Note (short form) - Note Progress Note: fdiarrhea once this am reuqesting methadone, daily heroine user Vital Signs Period Temp Pulse Resp BP Sys/Easton Pulse Ox Last 24 Hr 98.2 F-98.4 F 83-100 18-20 95-105/56-73 100-100 cor-rrr lungs decreased bs at bses abd soft,nt ext no edema bilateral axilla with scarring CBC, BMP 12/28/18 07:10 12/28/18 07:10 Microbiology 12/28/18 03:30 Stool Clostridioides difficile Antigen - Final 12/28/18 03:30 Stool Clostridioides difficile Toxin Assay - Final 12/25/18 17:32 Blood - Peripheral Venous Blood Culture - Preliminary Non Lactose Fermenting Gnb 12/25/18 17:32 Blood - Peripheral Venous Blood Culture - Preliminary NO GROWTH OBTAINED AFTER 48 HOURS, INCUBATION TO CONTINUE FOR 3 DAYS. 12/25/18 21:07 Urine - Urine Clean Catch Urine Culture - Final NO GROWTH OBTAINED crp 23.9 imp/reccd gram negative bacteremia diffuse abdominal pain anemia history of abdominal aneurysm continue zosyn suspect diarrhea is due to withdrawal but with toxin positive and prior history of cdiff will start po vancomycin culture results still pending repeat blood cultures
[2018-12-28] MEDS ORDERED: METHADONE 10 MG, METHADONE 5 MG PO ONE ×2 (15:27→15:45)
[2018-12-28] MEDS ORDERED: METHADONE HCL 5 MG TABLET (FOR PAIN ONLY) ONE (15:54)
[2018-12-28] MEDS ORDERED: METHADONE HCL 10 MG TABLET ONE (15:54)
--- NOTE | 2018-12-28 17:44 | PN ---
Teaching Attending Note Name of Resident: Alvarez Black ATTENDING PHYSICIAN STATEMENT I saw and evaluated the patient. I reviewed the resident's note and discussed the case with the resident. I agree with the resident's findings and plan as documented. SUBJECTIVE: Patient is c/o having diarrhea watery at least 2x today and 3x yesterday. Vital Signs Temperature 98.4 F 12/28/18 09:00 Pulse Rate 100 H 12/28/18 09:00 Respiratory Rate 18 12/28/18 09:00 Blood Pressure 105/73 12/28/18 09:00 O2 Sat by Pulse Oximetry (%) 100 12/28/18 09:00 GENERAL: The patient is awake, alert, and fully oriented, in no acute distress. HEAD: Normal with no signs of trauma. EYES: PERRL, extraocular movements intact, sclera anicteric, conjunctiva clear. ENT: Ears normal, oropharynx clear without exudates, moist mucous membranes. NECK: Trachea midline, full range of motion, supple. LUNGS: Breath sounds equal, clear to auscultation bilaterally, no wheezes, no crackles, no accessory muscle use. HEART: Regular rate and rhythm, S1, S2 without murmur, rub or gallop. ABDOMEN: Soft, mild tenderness , nondistended, normoactive bowel sounds, no guarding, no rebound, no hepatomegaly, no masses. EXTREMITIES: 2+ pulses, warm, well-perfused, no edema. NEUROLOGICAL: Cranial nerves II through XII grossly intact. Normal speech, gait not observed. PSYCH: Normal mood,flat affect SKIN: Warm, dry, normal turgor, no rashes or lesions noted CBCD WBC 9.3 K/mm3 (4.0-10.0) 12/28/18 07:10 RBC 2.60 M/mm3 (4.00-5.60) L 12/28/18 07:10 Hgb 7.4 GM/dL (11.7-16.9) L 12/28/18 07:10 Hct 22.1 % (35.4-49) L 12/28/18 07:10 MCV 85.1 fl (80-96) 12/28/18 07:10 MCHC 33.5 g/dl (32.0-35.9) 12/28/18 07:10 RDW 16.9 % (11.9-15.9) H 12/28/18 07:10 Plt Count 510 K/MM3 (134-434) H 12/28/18 07:10 MPV 7.0 fl (7.5-11.1) L 12/28/18 07:10 CMP Sodium 136 mmol/L (136-145) 12/28/18 07:10 Potassium 3.7 mmol/L (3.5-5.1) 12/28/18 07:10 Chloride 105 mmol/L (98-107) 12/28/18 07:10 Carbon Dioxide 26 mmol/L (21-32) 12/28/18 07:10 Anion Gap 5 MMOL/L (8-16) L 12/28/18 07:10 BUN 15.8 mg/dL (7-18) 12/28/18 07:10 Creatinine 1.1 mg/dL (0.55-1.3) 12/28/18 07:10 Random Glucose 93 mg/dL (74-106) 12/28/18 07:10 Calcium 7.0 mg/dL (8.5-10.1) L 12/28/18 07:10 Total Bilirubin 0.4 mg/dL (0.2-1) 12/28/18 07:10 AST 30 U/L (15-37) 12/28/18 07:10 ALT 14 U/L (13-61) 12/28/18 07:10 Alkaline Phosphatase 292 U/L (45-117) H 12/28/18 07:10 Total Protein 6.0 g/dl (6.4-8.2) L 12/28/18 07:10 Albumin 1.2 g/dl (3.4-5.0) L 12/28/18 07:10 CARDIAC ENZYMES Troponin I < 0.02 ng/ml (0.00-0.05) 12/25/18 17:40 Current Medications Generic Name Dose Route Start Last Admin Trade Name Freq PRN Reason Stop Dose Admin Acetaminophen 650 mg 12/25/18 20:50 12/26/18 03:42 Tylenol - PO 650 mg Q4H PRN Administration FEVER Heparin Sodium (Porcine) 5,000 unit 12/26/18 06:00 12/28/18 16:03 Heparin - SQ Not Given TID CHAITANYA Piperacillin Sod/Tazobactam 100 mls @ 200 mls/hr 12/26/18 18:00 12/28/18 17: 00 Sod 4.5 gm/ Dextrose IVPB 200 mls/hr Q8H-IV CHAITNAYA Administration Protocol Potassium Chloride/Dextrose/Sod Cl 20 meq in 1,000 mls @ 100 mls/hr 12/26/18 19:00 12/28/18 16:05 D5-1/2ns+20 Meq Kcl - IV 100 mls/hr ASDIR CHAITANYA Administration Nystatin 1 applic 12/26/18 22:00 12/28/18 10:14 Mycostatin Cream - TP 1 film BID CHAITANYA Administration Vancomycin HCl 125 mg 12/28/18 18:00 Vancomycin Oral Solution PO Q6HPO CHAITANYA Home Medications Medication Instructions Recorded Losartan 50Mg/Hctz 12.5MG [Hyzaar 50 mg PO DAILY 12/25/18 -] CTA: AAA 4.5cm at the level of diaghram, 4.5cm with aneurysm within midabdomen and 4.5cm aneurysm at the level of aortic bifurcation, there is dilatiation of the common iliac measuring 2.4cm and the left common iliac measuring 2.2cm. there is no evidence of dissection. Liver is 23.1 cm in craniocaudad dimension, no intrahepatic masses are identified. Microbiology 12/28/18 03:30 Stool Clostridioides difficile Antigen - Final 12/28/18 03:30 Stool Clostridioides difficile Toxin Assay - Final 12/25/18 17:32 Blood - Peripheral Venous Blood Culture - Preliminary Non Lactose Fermenting Gnb 12/25/18 17:32 Blood - Peripheral Venous Blood Culture - Preliminary NO GROWTH OBTAINED AFTER 48 HOURS, INCUBATION TO CONTINUE FOR 3 DAYS. 12/25/18 21:07 Urine - Urine Clean Catch Urine Culture - Final NO GROWTH OBTAINED ASSESSMENT AND PLAN: Patient is a 63yo male with recent admission for C diff, Klebsiella bacteremia , heroin abuse, HTN, recent diagnosis of duodenal ulcer, aortic aneurysm, who presented to [facility] then was sent here due to cough and SOB. # Acute Leukocytosis: Ascencio cx was done, growing gram negative bacteremia; Id on the case will continue with IV zosyn # Acute diarrhea with hx of Cdiff, stool antigen is positive, will treat since pTIENT HAS positive antigen, on po vanco now. # H/o AAA. CT scan was reviewed with Dr. Saavedra. aneurysm in thoracic aorta which was read as 4 cm , is actually > 5 cm . has AAA in abdominal aorta as well. will consult dr. Rose to evaluate the patient. #Chronic Normocytic anemia: iron studeis in June did not show evidence of iron def. B12 and folate were nl. SPEP with no M spike. # Hepatomegaly with anemia , and weight loss. MDS might needs to be r/o , heme consult appreciated # Weight loss: Unexplained. caanot r/o malignancy. TSH , was nl in 06/25. EGD with bx of duodenal ulcer showed chronic inflammation , colonoscopy was not performed # Heroin abuse. patient states that he is withdrawing and no signs of withdrawal . if he starts showing any signs , will place on methadone Detox protocol . # H/o HTN. BP on lower side. hold off on losartan /HCTZ Heparin sq
[2018-12-28] MEDS ORDERED: cloNIDine HCL 0.1 MG TABLET PO PRN (20:56)
--- NOTE | 2018-12-28 21:56 | PN ---
S Progress Note (SOAP) Subjective: pt referred for consultation , reports 4-5 bags heroin /day x 20 + years , claims he used to be on MMTP MDD 50 mg , stopped going " years ago " and has no interest in returning to MMTP , latest use prior to current hospital admission , was given Methadone 20 mg yesterday and 15 mg today . Objective: wnwd NAD 12/28/18 21:55 Vital Signs - 24 hr 12/28/18 12/28/18 12/28/18 03:22 09:00 17:00 Temperature 98.2 F 98.4 F 98.6 F Pulse Rate 83 100 H 84 Respiratory 20 18 20 Rate Blood Pressure 95/56 L 105/73 107/73 O2 Sat by Pulse 100 Oximetry (%) 12/28/18 20:32 Temperature Pulse Rate 86 Respiratory 20 Rate Blood Pressure 98/68 O2 Sat by Pulse 98 Oximetry (%) CBC, BMP 12/28/18 07:10 12/28/18 07:10 Abnormal Lab Results 12/27/18 12/28/18 12/28/18 06:05 07:10 07:10 RBC 2.60 L Hgb 7.4 L Hct 22.1 L RDW 16.9 H Plt Count 510 H MPV 7.0 L Anion Gap 5 L Calcium 7.0 L GGT Alkaline Phosphatase 292 H Total Protein 6.0 L Albumin 1.2 L CA 19-9 Antigen 61 H 12/28/18 07:10 RBC Hgb Hct RDW Plt Count MPV Anion Gap Calcium GGT 137 H Alkaline Phosphatase Total Protein Albumin CA 19-9 Antigen Assessment: 12/28/18 21:55 Opioid use disorder Plan: Methadone detox taper . Pt to consider rehab when medically stable.
[2018-12-28] MEDS ORDERED: PT OWN MED DRAWER 7, Y5N ONE (22:21)
[2018-12-28] MEDS: VANCOMYCIN 250 MG/5 ML ORAL SOLUTION PO SCH (22:23)
[2018-12-29] MEDS ORDERED: PIPERACILLIN/TAZOBACTAM 4.5 GM VIAL IVPB ONE ×2 (01:05→11:09)
[2018-12-29] MEDS ORDERED: DEXTROSE 5%-WATER 100 ML IVPB ONE ×2 (01:05→11:09)
[2018-12-29] MEDS: VANCOMYCIN 250 MG/5 ML ORAL SOLUTION PO SCH ×6 (01:30→23:23)
[2018-12-29] MEDS: clonazePAM 0.5 MG TABLET PO PRN ×3 (01:30→16:20)
[2018-12-29] MEDS: D5-1/2NS+20 MEQ KCL - 20 MEQ/1,000 ML INFUS.BAG IV SCH ×2 (01:31→22:13)
[2018-12-29] MEDS: PIPERACILLIN/TAZOB 4.5 GM 4.5 GM in DEXTROSE 5%-WATER 100 ML IVPB SCH ×3 (01:32→18:45)
[2018-12-29] MEDS: HEPARIN NA (PORCINE) 5,000 UNITS/ML 1ML VIAL SQ SCH ×3 (05:53→22:13)
[2018-12-29 06:48] LABS: HEMATOCRIT 20.6 % (35.4-49); MCH 28.1 pg (25.7-33.7); MCHC 33.1 g/dl (32.0-35.9); MEAN CELL VOLUME 84.8 fl (80-96); MEAN PLT VOLUME 6.9 fl (7.5-11.1); PLATELET COUNT 507 K/MM3 (134-434); RBC 2.42 M/mm3 (4.00-5.60); RDW 16.7 % (11.9-15.9)
[2018-12-29 07:20] LABS: HEMOGLOBIN 6.8 GM/dL (11.7-16.9)
[2018-12-29 07:31] LABS: ALBUMIN 1.1 g/dl (3.4-5.0); BILIRUBIN,TOTAL 0.2 mg/dL (0.2-1); BLOOD UREA NITROGEN 11.6 mg/dL (7-18); POTASSIUM 4.1 mmol/L (3.5-5.1); TOT PROT 5.6 g/dl (6.4-8.2)
[2018-12-29 07:49] LABS: CALCIUM 6.9 mg/dL (8.5-10.1)
[2018-12-29] MEDS ORDERED: METHADONE HCL 5 MG TABLET (FOR DETOX USE ONLY) PO ONE (10:00)
[2018-12-29] MEDS: NYSTATIN 100,000 UNIT/GM TOPICAL CREAM 15 GM TUBE TP SCH ×2 (11:28→23:23)
--- NOTE | 2018-12-29 13:02 | PN ---
Progress Note, Physician History of Present Illness: Patient seen and examined in bed, sitting up eating lunch. He states no pain currently, is tolerating diet. No diarrhea today - he indicates he didn't eat much last 2 days "to try and get it out of me." Feeling a bit better. Awaiting blood transfusion for Hb 6.8. Blood culture growing E. cloacae. No MRI yet. GI consult noted. - Current Medication List Current Medications: Active Medications Acetaminophen (Tylenol -) 650 mg PO Q4H PRN PRN Reason: FEVER Last Admin: 12/26/18 03:42 Dose: 650 mg Clonazepam (Klonopin -) 0.5 mg PO Q6H PRN PRN Reason: Withdrawal Symptoms Stop: 12/29/18 20:55 Last Admin: 12/29/18 09:08 Dose: 0.5 mg Clonidine (Catapres -) 0.1 mg PO Q4H PRN PRN Reason: Withdrawal Symptoms Stop: 12/29/18 23:59 Heparin Sodium (Porcine) (Heparin -) 5,000 unit SQ TID [facility] Last Admin: 12/29/18 05:53 Dose: 5,000 unit Piperacillin Sod/Tazobactam (Sod 4.5 gm/ Dextrose) 100 mls @ 200 mls/hr IVPB Q8H-IV CHAITANYA; Protocol Last Admin: 12/29/18 11:23 Dose: 200 mls/hr Potassium Chloride/Dextrose/Sod Cl (D5-1/2ns+20 Meq Kcl -) 20 meq in 1,000 mls @ 100 mls/hr IV ASDIR [facility] Last Admin: 12/29/18 01:31 Dose: Not Given Methadone HCl (Dolophine -) 10 mg PO ONCE ONE Stop: 12/30/18 10:01 Methadone HCl (Dolophine -) 5 mg PO ONCE ONE Stop: 12/31/18 06:01 Nystatin (Mycostatin Cream -) 1 applic TP BID [facility] Last Admin: 12/29/18 11:28 Dose: Not Given Vancomycin HCl (Vancomycin Oral Solution) 125 mg PO Q6HPO [facility] Last Admin: 12/29/18 11:23 Dose: 125 mg - Objective Vital Signs: Vital Signs Temperature 98.1 F 12/29/18 06:00 Pulse Rate 77 12/29/18 06:00 Respiratory Rate 20 12/29/18 08:54 Blood Pressure 98/66 11/22/19 06:00 O2 Sat by Pulse Oximetry (%) 98 12/29/18 08:54 Constitutional: Yes: No Distress, Calm, Cachectic Eyes: Yes: Conjunctiva Clear, EOM Intact. No: Sclera Icterus HENT: Yes: Atraumatic, Normocephalic Gastrointestinal: Yes: Soft, Hepatomegaly. No: Tenderness, Tenderness, Epigastrium ...Rectal Exam: Yes: Deferred Extremities: No: Cool, Cyanosis Integumentary: Yes: Other (scarred under bilateral axillae). No: Jaundice, Rash Neurological: Yes: Alert, Oriented Labs: CBC, BMP 12/29/18 06:18 12/29/18 06:18 CMP Sodium 136 mmol/L (136-145) 12/29/18 06:18 Potassium 4.1 mmol/L (3.5-5.1) 12/29/18 06:18 Chloride 106 mmol/L (98-107) 12/29/18 06:18 Carbon Dioxide 26 mmol/L (21-32) 12/29/18 06:18 Anion Gap 4 MMOL/L (8-16) L 12/29/18 06:18 BUN 11.6 mg/dL (7-18) 12/29/18 06:18 Creatinine 1.0 mg/dL (0.55-1.3) 12/29/18 06:18 Est GFR (CKD-EPI)AfAm 91.78 12/29/18 06:18 Est GFR (CKD-EPI)NonAf 79.19 12/29/18 06:18 Random Glucose 85 mg/dL (74-106) 12/29/18 06:18 Serum Osmolality 286 mosm/kg (278-305) 12/26/18 05:50 Lactic Acid 0.9 mmol/L (0.4-2.0) 12/25/18 23:00 Calcium 6.9 mg/dL (8.5-10.1) L* 12/29/18 06:18 Phosphorus 4.3 mg/dL (2.5-4.9) 12/26/18 05:50 Magnesium 1.7 mg/dL (1.8-2.4) L 12/26/18 05:50 Iron 26 ug/dL (50-175) L 12/27/18 06:05 TIBC 82 ug/dL (250-450) L 12/27/18 06:05 Iron Saturation 31 % (17.5-39) 12/27/18 06:05 Unsaturated IBC 56 ug/dL (200-275) L 12/27/18 06:05 Ferritin 367.7 ng/ml (8-388) 12/27/18 06:05 Total Bilirubin 0.2 mg/dL (0.2-1) 12/29/18 06:18 GGT 137 U/L (5-85) H 12/28/18 07:10 AST 22 U/L (15-37) 12/29/18 06:18 ALT 12 U/L (13-61) L 12/29/18 06:18 Alkaline Phosphatase 239 U/L (45-117) H 12/29/18 06:18 LD Total 101 U/L (87-246) 12/28/18 07:10 Troponin I < 0.02 ng/ml (0.00-0.05) 12/25/18 17:40 C-Reactive Protein 5.9 MG/DL (0.00-0.3) H 12/29/18 06:18 B-Natriuretic Peptide 1287.5 pg/ml (5-125) H 12/25/18 17:40 Total Protein 5.6 g/dl (6.4-8.2) L 12/29/18 06:18 Total Protein (PEP) 6.4 g/dL (6.0-8.5) 12/26/18 05:35 Albumin 1.1 g/dl (3.4-5.0) L 12/29/18 06:18 Albumin (PEP) 1.6 gm/dl (2.9-4.4) L 12/26/18 05:35 Globulin 4.8 g/dL (2.2-3.9) H 12/26/18 05:35 Albumin/Globulin Ratio 0.3 (0.7-1.7) L 12/26/18 05:35 Beta Globulins 0.8 gm/dL (0.7-1.3) 12/26/18 05:35 Lipase 90 U/L (73-393) 12/27/18 06:05 Carcinoembryonic Ag 2.8 ng/mL (0.0-4.7) 12/27/18 06:05 CA 19-9 Antigen 61 U/mL (0-35) H 12/27/18 06:05 Vitamin B12 664 pg/ml (193-986) 12/27/18 06:05 Serum Folate 8 ng/mL (3.1-17.5) 12/27/18 06:05 TSH 1.10 uIU/ml (0.358-3.74) D 12/26/18 05:50 Microbiology 12/25/18 17:32 Blood Culture - Final Blood - Peripheral Venous Enterobacter Cloacae 12/25/18 17:32 Blood Culture - Preliminary Blood - Peripheral Venous NO GROWTH OBTAINED AFTER 72 HOURS, INCUBATION TO CONTINUE FOR 2 DAYS. 12/28/18 03:30 Clostridioides difficile Antigen - Final Stool Clostridioides difficile Toxin Assay - Final C. diff was positive for antigen, negative for toxin. Problem List - Problems (1) Dehydration Code(s): E86.0 - DEHYDRATION (2) Severe protein-calorie malnutrition Code(s): E43 - UNSPECIFIED SEVERE PROTEIN-CALORIE MALNUTRITION (3) Weight loss Code(s): R63.4 - ABNORMAL WEIGHT LOSS (4) SOB (shortness of breath) Code(s): R06.02 - SHORTNESS OF BREATH (5) Heroin addiction Code(s): F11.20 - OPIOID DEPENDENCE, UNCOMPLICATED (6) HTN (hypertension) Code(s): I10 - ESSENTIAL (PRIMARY) HYPERTENSION Qualifiers: Hypertension type: essential hypertension Qualified Code(s): I10 - Essential (primary) hypertension (7) AAA (abdominal aortic aneurysm) Code(s): I71.4 - ABDOMINAL AORTIC ANEURYSM, WITHOUT RUPTURE Qualifiers: Presence of rupture: without rupture Qualified Code(s): I71.4 - Abdominal aortic aneurysm, without rupture (8) Thoracic aortic aneurysm without rupture Code(s): I71.2 - THORACIC AORTIC ANEURYSM, WITHOUT RUPTURE (9) Abnormal findings on imaging of biliary tract Code(s): R93.2 - ABNORMAL FINDINGS ON DX IMAGING OF LIVER AND BILIARY TRACT (10) Periumbilical pain Code(s): R10.33 - PERIUMBILICAL PAIN (11) Bandemia Code(s): D72.825 - BANDEMIA (12) Tachycardia Code(s): R00.0 - TACHYCARDIA, UNSPECIFIED (13) Iron deficiency anemia Code(s): D50.9 - IRON DEFICIENCY ANEMIA, UNSPECIFIED Qualifiers: Iron deficiency anemia type: unspecified iron deficiency Qualified Code(s) : D50.9 - Iron deficiency anemia, unspecified Assessment/Plan Patient admitted with central abdominal pain and dyspnea on exertion over short distances for about 2 weeks, associated with anorexia in last week, and weight loss over last several months. Regular heroin user, quit smoking cigarettes very recently. Known aortic aneurysms without dissection or rupture. Better hydrated, with severely low albumin, iron-deficient anemia, leukocytosis resolved, mildly elevated alk phos but not other LFTs. Tachycardia improved, still with marginal BPs. Hydropic gallbladder initially, but poor po intake for about a week, now eating. No signs cholecystitis on imaging. Hepatomegaly. INR was mildly elevated. H/o Kleb bacteremia and C. diff in June. Workup in progress, possibly for occult malignancy. No abdominal pain or tenderness stool OB negative, on po Vanco for + C. diff antigen despite neg toxin tolerating diet - consider protein supplementation Doubt acute biliary source of leukocytosis or symptoms agree with MRI/MRCP ordered to evaluate biliary tract and pancreas - pt may require medication to tolerate study; should be done WITH contrast GI consult noted - will likely need colonoscopy at some point CEA normal, CA 19.9 elevated transfuse blood for Hb <7 Continue antibiotics per ID No acute general surgical issues yet identified Will sign off. I will be away until 01/03. Please reconsult surgery as needed
--- NOTE | 2018-12-29 14:00 | PN.GI ---
GI Progress Note Subjective: No acute events No abdominal pain Tolerating PO MRI not performed as of yet Decrease in H/H - Objective Vital Signs: Vital Signs Temperature 98.1 F 12/29/18 06:00 Pulse Rate 77 12/29/18 06:00 Respiratory Rate 20 12/29/18 08:54 Blood Pressure 98/66 12/29/18 06:00 O2 Sat by Pulse Oximetry (%) 98 12/29/18 08:54 Constitutional: Calm Eyes: No: Sclera Icterus Cardiovascular: Yes: Regular Rate and Rhythm Respiratory: Yes: Diminished (at bases bilaterally) Gastrointestinal Inspection: No: Distention ...Auscultate: Yes: Normoactive Bowel Sounds ...Palpate: No: Hepatomegaly, Splenomegaly, Tenderness ...Percussion: No: Tympanitic Edema: No (No LE edema) Neurological: Yes: Alert Labs: CBC, BMP 12/29/18 06:18 12/29/18 06:18 INR, PTT INR 1.49 (0.83-1.09) H 12/25/18 17:40 Problem List - Problems (1) Diarrhea Assessment/Plan: Clinically improved Discussed colonoscopy with Mr. March for further evaluation of bacteremia / anemia. Discussed potential risks of the procedure like but not limited to bleeding, perforation requiring surgery to repair, infection, sedation medication effects all of which could be potentially life threatening. He has agreed. Plan tentatively for Monday 01/01. Await MRI Code(s): R19.7 - DIARRHEA, UNSPECIFIED
[2018-12-29 14:08] LABS: TOTAL PROTEIN, URINE 43.1 mg/dL (Not Estab.)
--- NOTE | 2018-12-29 14:19 | PN ---
Progress Note (short form) - Note Progress Note: diarrhea improved for transfusion again unwilling to speak about his health no complaints Vital Signs Period Temp Pulse Resp BP Sys/Easton Pulse Ox Last 24 Hr 97.9 F-98.6 F 77-86 20-20 97-107/66-73 98-98 cor-rrr lungs decreased bs at bases abd soft,nt ext no edema CBC, BMP 12/29/18 06:18 12/29/18 06:18 Microbiology 12/25/18 17:32 Blood - Peripheral Venous Blood Culture - Final Enterobacter Cloacae 12/25/18 17:32 Blood - Peripheral Venous Blood Culture - Preliminary NO GROWTH OBTAINED AFTER 72 HOURS, INCUBATION TO CONTINUE FOR 2 DAYS. 12/28/18 03:30 Stool Clostridioides difficile Antigen - Final 12/28/18 03:30 Stool Clostridioides difficile Toxin Assay - Final 12/25/18 21:07 Urine - Urine Clean Catch Urine Culture - Final NO GROWTH OBTAINED crp 23.9, 5.9 hiv negative imp/reccd gram negative bacteremia-?gi source- Enterobacter- cultures repeated- switch to unasyn diffuse abdominal pain resolved anemia-transfusion, eventual colonoscopy history of abdominal aneurysm diarrhea with positive cdiff toxin- ?opiate withdrawl- has prior history of cdiff toxin positive so will treat with po vancomycin
--- NOTE | 2018-12-29 15:34 | PN ---
Physical Exam: SUBJECTIVE: Patient seen and examined 63 y/o M, pmh of thoracic and abdominal aortic aneurysm dx at [facility] in june of 2018, right femur surgery 2 years ago, COPD, HTN presented for sob of 1 week duration. Pt states that he feels better and his breathing has improved. Reports that he is barely able to eat. He is demanding detox and reports that detox given at the hospital is not enough. He requested for AMA but then decided to stay. Pt is afebrile and asymptomatic. Denies f/c/n/v/d/sob/chest pain. OBJECTIVE: Vital Signs Period Temp Pulse Resp BP Sys/Easton Pulse Ox Last 24 Hr 97.9 F-98.6 F 73-86 18-20 97-107/63-73 98-98 GENERAL: The patient is awake, alert, and fully oriented, appears cachetic, EYES: PERRL, extraocular movements intact. Dry conjunctiva. No ptosis. Not well groomed NECK: full range of motion, supple. Right lower jaw swelling appreciated, likely LAD LUNGS: Breath sounds equal, clear to auscultation bilaterally, no wheezes, no crackles, HEART: Regular rate and rhythm, S1, S2 without murmur, rub or gallop. ABDOMEN: Soft, nontender, nondistended, normoactive bowel sounds, hepatomegaly is present, no masses. EXTREMITIES: 2+ pulses, warm, no edema. RUE: Hydradenitis- No discharge LUE: Hydradenitis- no discharge SKIN: Warm, dry skin, Laboratory Results - last 24 hr CBC,CMP WBC 6.0 K/mm3 (4.0-10.0) 12/29/18 06:18 RBC 2.42 M/mm3 (4.00-5.60) L 12/29/18 06:18 Hgb 6.8 GM/dL (11.7-16.9) L* 12/29/18 06:18 Hct 20.6 % (35.4-49) L 12/29/18 06:18 MCV 84.8 fl (80-96) 12/29/18 06:18 MCH 28.1 pg (25.7-33.7) 12/29/18 06:18 MCHC 33.1 g/dl (32.0-35.9) 12/29/18 06:18 RDW 16.7 % (11.9-15.9) H 12/29/18 06:18 Plt Count 507 K/MM3 (134-434) H 12/29/18 06:18 MPV 6.9 fl (7.5-11.1) L 12/29/18 06:18 Absolute Neuts (auto) 13.0 K/mm3 (1.5-8.0) H 12/27/18 06:05 Neutrophils % 81.8 % (42.8-82.8) 12/27/18 06:05 Neutrophils % (Manual) 88.9 % (42.8-82.8) H 12/26/18 05:50 Band Neutrophils % 2.0 % 12/26/18 05:50 Lymphocytes % 10.7 % (8-40) D 12/27/18 06:05 Lymphocytes % (Manual) 2.0 % (8-40) L D 12/26/18 05:50 Monocytes % 6.8 % (3.8-10.2) 12/27/18 06:05 Monocytes % (Manual) 5 % (3.8-10.2) 12/26/18 05:50 Eosinophils % 0.4 % (0-4.5) D 12/27/18 06:05 Eosinophils % (Manual) 0.0 % (0-4.5) 12/26/18 05:50 Basophils % 0.3 % (0-2.0) 12/27/18 06:05 Basophils % (Manual) 0.0 % (0-2.0) 12/26/18 05:50 Myelocytes % (Man) 0 % (0-2) D 12/26/18 05:50 Promyelocytes % (Man) 0 % (0-2) 12/26/18 05:50 Blast Cells % (Manual) 0 % (0-0) 12/26/18 05:50 Nucleated RBC % 0 % (0-0) 12/27/18 06:05 Metamyelocytes 0 % (0-2) 12/26/18 05:50 Hypersegmented Neuts Few 12/25/18 15:56 Platelet Estimate Increased 12/26/18 05:50 Platelet Comment No clumping noted 12/25/18 17:40 Anisocytosis 1+ 12/26/18 05:50 ESR Cancelled 12/26/18 05:50 Retic Count 0.70 % (0.5-1.5) D 12/28/18 07:10 Haptoglobin 336 mg/dL (34-200) H 12/28/18 07:10 Sodium 136 mmol/L (136-145) 12/29/18 06:18 Potassium 4.1 mmol/L (3.5-5.1) 12/29/18 06:18 Chloride 106 mmol/L (98-107) 12/29/18 06:18 Carbon Dioxide 26 mmol/L (21-32) 12/29/18 06:18 Anion Gap 4 MMOL/L (8-16) L 12/29/18 06:18 BUN 11.6 mg/dL (7-18) 12/29/18 06:18 Creatinine 1.0 mg/dL (0.55-1.3) 12/29/18 06:18 Est GFR (CKD-EPI)AfAm 91.78 12/29/18 06:18 Est GFR (CKD-EPI)NonAf 79.19 12/29/18 06:18 Random Glucose 85 mg/dL (74-106) 12/29/18 06:18 Serum Osmolality 286 mosm/kg (278-305) 12/26/18 05:50 Lactic Acid 0.9 mmol/L (0.4-2.0) 12/25/18 23:00 Calcium 6.9 mg/dL (8.5-10.1) L* 12/29/18 06:18 Phosphorus 4.3 mg/dL (2.5-4.9) 12/26/18 05:50 Magnesium 1.7 mg/dL (1.8-2.4) L 12/26/18 05:50 Iron 26 ug/dL (50-175) L 12/27/18 06:05 TIBC 82 ug/dL (250-450) L 12/27/18 06:05 Iron Saturation 31 % (17.5-39) 12/27/18 06:05 Unsaturated IBC 56 ug/dL (200-275) L 12/27/18 06:05 Ferritin 367.7 ng/ml (8-388) 12/27/18 06:05 Total Bilirubin 0.2 mg/dL (0.2-1) 12/29/18 06:18 GGT 137 U/L (5-85) H 12/28/18 07:10 AST 22 U/L (15-37) 12/29/18 06:18 ALT 12 U/L (13-61) L 12/29/18 06:18 Alkaline Phosphatase 239 U/L (45-117) H 12/29/18 06:18 LD Total 101 U/L (87-246) 12/28/18 07:10 Troponin I < 0.02 ng/ml (0.00-0.05) 12/25/18 17:40 C-Reactive Protein 5.9 MG/DL (0.00-0.3) H 12/29/18 06:18 B-Natriuretic Peptide 1287.5 pg/ml (5-125) H 12/25/18 17:40 Total Protein 5.6 g/dl (6.4-8.2) L 12/29/18 06:18 Total Protein (PEP) 6.4 g/dL (6.0-8.5) 12/26/18 05:35 Albumin 1.1 g/dl (3.4-5.0) L 12/29/18 06:18 Albumin (PEP) 1.6 gm/dl (2.9-4.4) L 12/26/18 05:35 Globulin 4.8 g/dL (2.2-3.9) H 12/26/18 05:35 Albumin/Globulin Ratio 0.3 (0.7-1.7) L 12/26/18 05:35 Ihbsn-7-Oqkiylztr (%) 1.1 % (.) 12/26/18 12:55 Eehiz-9-Ukxemgdql (%) 14.0 % (.) 12/26/18 12:55 Beta Globulins 0.8 gm/dL (0.7-1.3) 12/26/18 05:35 Beta Globulins (%) 26.6 % (.) 12/26/18 12:55 Gamma Globulins (%) 42.7 % (.) 12/26/18 12:55 M-Aydin % Not observed % (Not Observed) 12/26/18 12:55 Lipase 90 U/L (73-393) 12/27/18 06:05 Carcinoembryonic Ag 2.8 ng/mL (0.0-4.7) 12/27/18 06:05 CA 19-9 Antigen 61 U/mL (0-35) H 12/27/18 06:05 Vitamin B12 664 pg/ml (193-986) 12/27/18 06:05 Serum Folate 8 ng/mL (3.1-17.5) 12/27/18 06:05 TSH 1.10 uIU/ml (0.358-3.74) D 12/26/18 05:50 Active Medications Current Medications Acetaminophen (Tylenol -) 650 mg PO Q4H PRN PRN Reason: FEVER Last Admin: 12/26/18 03:42 Dose: 650 mg Bisacodyl (Dulcolax -) 20 mg PO ONCE ONE Stop: 12/31/18 15:01 Clonazepam (Klonopin -) 0.5 mg PO Q6H PRN PRN Reason: Withdrawal Symptoms Stop: 12/29/18 20:55 Last Admin: 12/29/18 09:08 Dose: 0.5 mg Clonidine (Catapres -) 0.1 mg PO Q4H PRN PRN Reason: Withdrawal Symptoms Stop: 12/29/18 23:59 Heparin Sodium (Porcine) (Heparin -) 5,000 unit SQ TID [facility] Last Admin: 12/29/18 05:53 Dose: 5,000 unit Potassium Chloride/Dextrose/Sod Cl (D5-1/2ns+20 Meq Kcl -) 20 meq in 1,000 mls @ 100 mls/hr IV ASDIR [facility] Last Admin: 12/29/18 01:31 Dose: Not Given Ampicillin Sodium/Sulbactam (Sodium 3 gm/ Sodium Chloride) 100 mls @ 200 mls/ hr IVPB Q8H-IV CHAITANYA Methadone HCl (Dolophine -) 10 mg PO ONCE ONE Stop: 12/30/18 10:01 Methadone HCl (Dolophine -) 5 mg PO ONCE ONE Stop: 12/31/18 06:01 Nystatin (Mycostatin Cream -) 1 applic TP BID [facility] Last Admin: 12/29/18 11:28 Dose: Not Given Polyethylene Glycol/Electrolytes (Golytely Solution -) 4,000 ml PO ONCE ONE Stop: 12/31/18 16:01 Vancomycin HCl (Vancomycin Oral Solution) 125 mg PO Q6HPO [facility] Last Admin: 12/29/18 13:40 Dose: 125 mg Home Medications Medication Instructions Recorded Losartan 50Mg/Hctz 12.5MG [Hyzaar 50 mg PO DAILY 12/25/18 -] Microbiology 12/25/18 17:32 Blood - Peripheral Venous Blood Culture - Final Enterobacter Cloacae 12/25/18 17:32 Blood - Peripheral Venous Blood Culture - Preliminary NO GROWTH OBTAINED AFTER 72 HOURS, INCUBATION TO CONTINUE FOR 2 DAYS. 12/28/18 03:30 Stool Clostridioides difficile Antigen - Final 12/28/18 03:30 Stool Clostridioides difficile Toxin Assay - Final 12/25/18 21:07 Urine - Urine Clean Catch Urine Culture - Final NO GROWTH OBTAINED ASSESSMENT/PLAN: 63 y/o M, pmh of thoracic and abdominal aortic aneurysm dx at [facility] in june of 2018, right femur surgery 2 years ago, COPD, HTN presented for sob of 1 week duration is admitted for leukocytosis, w/ source unknown #Leukocytosis, source unknown PE is evident for hydradenitis b/l w/ left draining purulent discharge Leukocytosis now resolved Switched to Unasyn and vanc C- Diff positive for antigen but negative for toxin MRCP ordered- pt refused- will try again Colonoscopy planned for Tuesday #AAA As per Dr. Saavedra, thoracic aortic aneurysm is actually > 5cm #Anemia- normocytic Heme/onc consult appreciated 1 u PRBC given CBC r/p f/u at 6 pm #Elevated ALP Monitor CMP for now #Cachexia/weight loss unexplained likely 2/2 to malignancy EGD in past showed chronic inflammation #Heroin abuse Detox physician consulted Dr. Macdonald- we appreciate the consult Methadone taper started 15 mg Methadone today, 10 mg tomorrow and 5mg the day after #Fungal infection of the foot Nystatin cream #DVT ppx heparin sq FEN sodium controlled diet, D5 + 1/2NS + KCL at 100 Dispo: f/u MRCP, colonoscopy for tuesday, cont abx Visit type - Emergency Visit Emergency Visit: Yes ED Registration Date: 12/25/18 Care time: The patient presented to the Emergency Department on the above date and was hospitalized for further evaluation of their emergent condition. - New Patient This patient is new to me today: Yes Date on this admission: 12/29/18 - Critical Care Critical Care patient: No - Discharge Referral Referred to [facility] No ATTENDING PHYSICIAN STATEMENT I saw and evaluated the patient. I reviewed the resident's note and discussed the case with the resident. I agree with the resident's findings and plan as documented. SUBJECTIVE: OBJECTIVE: ASSESSMENT AND PLAN:
--- NOTE | 2018-12-29 17:07 | PN ---
Physical Exam: SUBJECTIVE: Patient seen and examined at bedside. No acute events. feels about the same. OBJECTIVE: Vital Signs Period Temp Pulse Resp BP Sys/Easton Pulse Ox Last 24 Hr 97.9 F-98.2 F 73-86 18-20 97-104/63-68 98-98 Gen: AAOx3, NAD HEENT:NCAT, EOMI Neck: no jvd noted Cardio: rrr, s1s2, no mrg noted Pulm: fine rales bibasilar Abd: soft, nondistended, mild TTP RLQ Laboratory Results - last 24 hr 12/26/18 12/27/18 12/28/18 12:55 10:25 07:10 WBC RBC Hgb Hct MCV MCH MCHC RDW Plt Count MPV Haptoglobin 336 H Sodium Potassium Chloride Carbon Dioxide Anion Gap BUN Creatinine Est GFR (CKD-EPI)AfAm Est GFR (CKD-EPI)NonAf Random Glucose Calcium Total Bilirubin AST ALT Alkaline Phosphatase C-Reactive Protein Total Protein Albumin Xxqqx-9-Gpaanwgnn (%) 1.1 Phfee-9-Efgwohsmn (%) 14.0 Beta Globulins (%) 26.6 Gamma Globulins (%) 42.7 M-Aydin % Not observed Urine Total Protein 43.1 Urine PEP Interpret 15.6 TB Test (QFT) Nil 0.03 TB Test (QFT) Mitogen 0.20 TB Test (QFT) Antigen 0.03 TB Test (QFT) Indeterminate TB Positive Criteria Ref Test Comments Blood Type Antibody Screen Crossmatch 12/29/18 12/29/18 12/29/18 06:18 06:18 11:22 WBC 6.0 RBC 2.42 L Hgb 6.8 L* Hct 20.6 L MCV 84.8 MCH 28.1 MCHC 33.1 RDW 16.7 H Plt Count 507 H MPV 6.9 L Haptoglobin Sodium 136 Potassium 4.1 Chloride 106 Carbon Dioxide 26 Anion Gap 4 L BUN 11.6 Creatinine 1.0 Est GFR (CKD-EPI)AfAm 91.78 Est GFR (CKD-EPI)NonAf 79.19 Random Glucose 85 Calcium 6.9 L* Total Bilirubin 0.2 AST 22 ALT 12 L Alkaline Phosphatase 239 H C-Reactive Protein 5.9 H Total Protein 5.6 L Albumin 1.1 L Ubesr-9-Xpotvgfla (%) Ellyv-1-Xtcrmvkbf (%) Beta Globulins (%) Gamma Globulins (%) M-Aydin % Urine Total Protein Urine PEP Interpret TB Test (QFT) Nil TB Test (QFT) Mitogen TB Test (QFT) Antigen TB Test (QFT) TB Positive Criteria Ref Test Comments Blood Type A POSITIVE Antibody Screen Negative Crossmatch See Detail Active Medications Generic Name Dose Route Start Last Admin Trade Name Freq PRN Reason Stop Dose Admin Acetaminophen 650 mg 12/25/18 20:50 12/26/18 03:42 Tylenol - PO 650 mg Q4H PRN Administration FEVER Bisacodyl 20 mg 12/31/18 15:00 Dulcolax - PO 12/31/18 15:01 ONCE ONE Clonazepam 0.5 mg 12/28/18 20:56 12/29/18 16:20 Klonopin - PO 12/29/18 20:55 0.5 mg Q6H PRN Administration Withdrawal Symptoms Clonidine 0.1 mg 12/28/18 20:56 Catapres - PO 12/29/18 23:59 Q4H PRN Withdrawal Symptoms Heparin Sodium (Porcine) 5,000 unit 12/26/18 06:00 12/29/18 16:08 Heparin - SQ 5,000 unit TID CHAITANYA Administration Potassium Chloride/Dextrose/Sod Cl 20 meq in 1,000 mls @ 100 mls/hr 12/26/18 19:00 12/29/18 01:31 D5-1/2ns+20 Meq Kcl - IV Not Given ASDIR CHAITANYA Ampicillin Sodium/Sulbactam 100 mls @ 200 mls/hr 12/29/18 18:00 Sodium 3 gm/ Sodium Chloride IVPB Q8H-IV CHAITANYA Methadone HCl 10 mg 12/30/18 10:00 Dolophine - PO 12/30/18 10:01 ONCE ONE Methadone HCl 5 mg 12/31/18 06:00 Dolophine - PO 12/31/18 06:01 ONCE ONE Nystatin 1 applic 12/26/18 22:00 12/29/18 11:28 Mycostatin Cream - TP Not Given BID CHAITANYA Polyethylene Glycol/Electrolytes 4,000 ml 12/31/18 16:00 Golytely Solution - PO 12/31/18 16:01 ONCE ONE Vancomycin HCl 125 mg 12/28/18 18:00 12/29/18 13:40 Vancomycin Oral Solution PO 125 mg Q6HPO CHAITANYA Administration ASSESSMENT/PLAN: Pt is a 63 M with PMH 4.5 cm aortic aneurysm in June 2018 at [facility], right femur repair 2 years ago, COPD, C. diff and Klebsiella infections, duodenal ulcder, and HTN presenting to the ED c/o 1 week history of shortness of breath. leukocytosis, thrombocytosis, anemia -leukocytosis resolving, thrombocytosis persistent -? leukemia vs sepsis -weight loss, smoking history, fatigue, -TSH, B12, Folate normal -f/u PEP. of note, a:g ratio may be falsely low in the setting of hypoalbuminemia -may need FISH/flow cytometry -may consider BM Bx -had EGD in June but no colonoscopy -CA 19-9 pos -labs still pending Fe deficiency -recommend venofer Visit type - Emergency Visit Emergency Visit: No - New Patient This patient is new to me today: No - Critical Care Critical Care patient: No - Discharge Referral Referred to [facility] No ATTENDING PHYSICIAN STATEMENT I saw and evaluated the patient. I reviewed the resident's note and discussed the case with the resident. I agree with the resident's findings and plan as documented. SUBJECTIVE: OBJECTIVE: ASSESSMENT AND PLAN:
[2018-12-29] MEDS ORDERED: AMPICILLIN NA/SULBACTAM NA 3 GM in SODIUM CHLORIDE 100 ML IVPB SCH (18:00)
--- NOTE | 2018-12-29 18:08 | DS ---
Physical Exam: SUBJECTIVE: Patient seen and examined. Pt remained asymptomatic and afebrile. Pt had no further c/o or issues. Denies f/c/n/v/chest pain and sob. OBJECTIVE: Vital Signs Period Temp Pulse Resp BP Sys/Easton Pulse Ox Last 24 Hr 97.9 F-98.2 F 73-86 18-20 97-104/63-68 98-98 PHYSICAL EXAM GENERAL: The patient is awake, alert, and fully oriented, appears cachetic, EYES: PERRL, extraocular movements intact. Dry conjunctiva. No ptosis. Not well groomed NECK: full range of motion, supple. Right lower jaw swelling appreciated, likely LAD LUNGS: Breath sounds equal, clear to auscultation bilaterally, no wheezes, no crackles, HEART: Regular rate and rhythm, S1, S2 without murmur, rub or gallop. ABDOMEN: Soft, nontender, nondistended, normoactive bowel sounds, hepatomegaly is present, no masses. EXTREMITIES: 2+ pulses, warm, no edema. RUE: Hydradenitis- No discharge LUE: Hydradenitis- no discharge SKIN: Warm, dry skin, LABS Laboratory Results - last 24 hr 12/29/18 12/29/18 12/29/18 06:18 06:18 11:22 WBC 6.0 RBC 2.42 L Hgb 6.8 L* Hct 20.6 L MCV 84.8 MCH 28.1 MCHC 33.1 RDW 16.7 H Plt Count 507 H MPV 6.9 L Haptoglobin Sodium 136 Potassium 4.1 Chloride 106 Carbon Dioxide 26 Anion Gap 4 L BUN 11.6 Creatinine 1.0 Est GFR (CKD-EPI)AfAm 91.78 Est GFR (CKD-EPI)NonAf 79.19 Random Glucose 85 Calcium 6.9 L* Total Bilirubin 0.2 AST 22 ALT 12 L Alkaline Phosphatase 239 H C-Reactive Protein 5.9 H Total Protein 5.6 L Albumin 1.1 L Dzcee-6-Hzlzughpf (%) Gsqsv-6-Tjtussjlq (%) Beta Globulins (%) Gamma Globulins (%) M-Aydin % Urine Total Protein Urine PEP Interpret TB Test (QFT) Nil TB Test (QFT) Mitogen TB Test (QFT) Antigen TB Test (QFT) TB Positive Criteria Ref Test Comments Blood Type A POSITIVE Antibody Screen Negative Crossmatch See Detail HOSPITAL COURSE: Date of Admission:12/25/18 63 y/o M, pmh of thoracic and abdominal aortic aneurysm dx at [facility] in june of 2018, right femur surgery 2 years ago, COPD, HTN presented for sob of 1 week duration is admitted for leukocytosis, w/ source unknown. Pt was treated with Abx and his leukocytosis and symptoms resolved. Pt was also started on detox with methadone tapered dose. Pt was scheduled for MRCP and colonoscopy for tuesday. However, pt left AMA #Leukocytosis, source unknown PE is evident for hydradenitis b/l w/ left draining purulent discharge Leukocytosis now resolved Switched to Unasyn and vanc MRCP ordered- pt refused- will try again Colonoscopy planned for Tuesday #AAA As per Dr. Saavedra, thoracic aortic aneurysm is actually > 5cm #Anemia- normocytic 1 u PRBC given #Elevated ALP Monitor CMP for now #Cachexia/weight loss EGD in past showed chronic inflammation #Heroin abuse Detox physician consulted Dr. Macdonald- we appreciate the consult Methadone taper started Pt left AMA Date of Discharge: 12/29/18 Discharge Summary Problems reviewed: Yes Reason For Visit: LEUKOCYTOSIS, HYPOTENSION,DEHYDRATION Current Active Problems Abnormal findings on imaging of biliary tract (Acute) Bandemia (Acute) Dehydration (Acute) Hypotension (Acute) Iron deficiency anemia (Acute) Leukocytosis, unspecified (Acute) Periumbilical pain (Acute) SIRS (systemic inflammatory response syndrome) (Acute) SOB (shortness of breath) (Acute) Tachycardia (Acute) Thoracic aortic aneurysm without rupture (Acute) Condition: Stable - Instructions Referrals: Guevara Ybarra [Other] Disposition: AGAINST MEDICAL ADVICE - Home Medications Comprehensive Discharge Medication List: Ambulatory Orders Losartan 50Mg/Hctz 12.5MG [Hyzaar -] 50 mg PO DAILY 12/25/18 - Discharge Referral Referred to [facility] No ATTENDING PHYSICIAN STATEMENT I saw and evaluated the patient. I reviewed the resident's note and discussed the case with the resident. I agree with the resident's findings and plan as documented. SUBJECTIVE: OBJECTIVE: ASSESSMENT AND PLAN:
--- NOTE | 2018-12-29 18:36 | PN ---
Teaching Attending Note Name of Resident: Alvarez Black ATTENDING PHYSICIAN STATEMENT I saw and evaluated the patient. I reviewed the resident's note and discussed the case with the resident. I agree with the resident's findings and plan as documented. SUBJECTIVE: Patient wants to leave against medical advice , does not want to stay in the hospital. OBJECTIVE: Vital Signs Temperature 97.8 F 12/29/18 18:28 Pulse Rate 85 12/29/18 18:28 Respiratory Rate 18 12/29/18 18:28 Blood Pressure 104/67 12/29/18 18:28 O2 Sat by Pulse Oximetry (%) 98 12/29/18 08:54 GENERAL: The patient is awake, alert, and fully oriented, in no acute distress. HEAD: Normal with no signs of trauma. EYES: PERRL, extraocular movements intact, sclera anicteric, conjunctiva clear. ENT: Ears normal, oropharynx clear without exudates, moist mucous membranes. NECK: Trachea midline, full range of motion, supple. LUNGS: Breath sounds equal, clear to auscultation bilaterally, no wheezes, no crackles, no accessory muscle use. HEART: Regular rate and rhythm, S1, S2 without murmur, rub or gallop. ABDOMEN: Soft, mild tenderness , nondistended, normoactive bowel sounds, no guarding, no rebound, no hepatomegaly, no masses. EXTREMITIES: 2+ pulses, warm, well-perfused, no edema. NEUROLOGICAL: Cranial nerves II through XII grossly intact. Normal speech, gait not observed. PSYCH: Normal mood,flat affect SKIN: Warm, dry, normal turgor, no rashes or lesions noted CBCD WBC 6.0 K/mm3 (4.0-10.0) 12/29/18 06:18 RBC 2.42 M/mm3 (4.00-5.60) L 12/29/18 06:18 Hgb 6.8 GM/dL (11.7-16.9) L* 12/29/18 06:18 Hct 20.6 % (35.4-49) L 12/29/18 06:18 MCV 84.8 fl (80-96) 12/29/18 06:18 MCHC 33.1 g/dl (32.0-35.9) 12/29/18 06:18 RDW 16.7 % (11.9-15.9) H 12/29/18 06:18 Plt Count 507 K/MM3 (134-434) H 12/29/18 06:18 MPV 6.9 fl (7.5-11.1) L 12/29/18 06:18 CMP Sodium 136 mmol/L (136-145) 12/29/18 06:18 Potassium 4.1 mmol/L (3.5-5.1) 12/29/18 06:18 Chloride 106 mmol/L (98-107) 12/29/18 06:18 Carbon Dioxide 26 mmol/L (21-32) 12/29/18 06:18 Anion Gap 4 MMOL/L (8-16) L 12/29/18 06:18 BUN 11.6 mg/dL (7-18) 12/29/18 06:18 Creatinine 1.0 mg/dL (0.55-1.3) 12/29/18 06:18 Random Glucose 85 mg/dL (74-106) 12/29/18 06:18 Calcium 6.9 mg/dL (8.5-10.1) L* 12/29/18 06:18 Total Bilirubin 0.2 mg/dL (0.2-1) 12/29/18 06:18 AST 22 U/L (15-37) 12/29/18 06:18 ALT 12 U/L (13-61) L 12/29/18 06:18 Alkaline Phosphatase 239 U/L (45-117) H 12/29/18 06:18 Total Protein 5.6 g/dl (6.4-8.2) L 12/29/18 06:18 Albumin 1.1 g/dl (3.4-5.0) L 12/29/18 06:18 CARDIAC ENZYMES Troponin I < 0.02 ng/ml (0.00-0.05) 12/25/18 17:40 Current Medications Generic Name Dose Route Start Last Admin Trade Name Freq PRN Reason Stop Dose Admin Acetaminophen 650 mg 12/25/18 20:50 12/26/18 03:42 Tylenol - PO 650 mg Q4H PRN Administration FEVER Bisacodyl 20 mg 12/31/18 15:00 Dulcolax - PO 12/31/18 15:01 ONCE ONE Clonazepam 0.5 mg 12/28/18 20:56 12/29/18 16:20 Klonopin - PO 12/29/18 20:55 0.5 mg Q6H PRN Administration Withdrawal Symptoms Clonidine 0.1 mg 12/28/18 20:56 Catapres - PO 12/29/18 23:59 Q4H PRN Withdrawal Symptoms Heparin Sodium (Porcine) 5,000 unit 12/26/18 06:00 12/29/18 16:08 Heparin - SQ 5,000 unit TID CHAITANYA Administration Potassium Chloride/Dextrose/Sod Cl 20 meq in 1,000 mls @ 100 mls/hr 12/26/18 19:00 12/29/18 01:31 D5-1/2ns+20 Meq Kcl - IV Not Given ASDIR CHAITANYA Piperacillin Sod/Tazobactam 100 mls @ 200 mls/hr 12/29/18 18:30 Sod 4.5 gm/ Dextrose IVPB Q8H-IV [facility] Protocol Methadone HCl 10 mg 12/30/18 10:00 Dolophine - PO 12/30/18 10:01 ONCE ONE Methadone HCl 5 mg 12/31/18 06:00 Dolophine - PO 12/31/18 06:01 ONCE ONE Nystatin 1 applic 12/26/18 22:00 12/29/18 11:28 Mycostatin Cream - TP Not Given BID [facility] Polyethylene Glycol/Electrolytes 4,000 ml 12/31/18 16:00 Golytely Solution - PO 12/31/18 16:01 ONCE ONE Vancomycin HCl 125 mg 12/28/18 18:00 12/29/18 17:41 Vancomycin Oral Solution PO Not Given Q6HPO [facility] Home Medications Medication Instructions Recorded Losartan 50Mg/Hctz 12.5MG [Hyzaar 50 mg PO DAILY 12/25/18 -] CTA: AAA 4.5cm at the level of diaghram, 4.5cm with aneurysm within midabdomen and 4.5cm aneurysm at the level of aortic bifurcation, there is dilatiation of the common iliac measuring 2.4cm and the left common iliac measuring 2.2cm. there is no evidence of dissection. Liver is 23.1 cm in craniocaudad dimension, no intrahepatic masses are identified. Microbiology 12/25/18 17:32 Blood - Peripheral Venous Blood Culture - Final Enterobacter Cloacae 12/25/18 17:32 Blood - Peripheral Venous Blood Culture - Preliminary NO GROWTH OBTAINED AFTER 72 HOURS, INCUBATION TO CONTINUE FOR 2 DAYS. 12/28/18 03:30 Stool Clostridioides difficile Antigen - Final 12/28/18 03:30 Stool Clostridioides difficile Toxin Assay - Final 12/25/18 21:07 Urine - Urine Clean Catch Urine Culture - Final NO GROWTH OBTAINED ASSESSMENT AND PLAN: Patient is a 63yo male with recent admission for C diff, Klebsiella bacteremia , heroin abuse, HTN, recent diagnosis of duodenal ulcer, aortic aneurysm, who presented to [facility] then was sent here due to cough and SOB. # Acute Leukocytosis: Ascencio cx was done, growing Enterobacter Cloacae sensitive to IV zosyn, continue IV zosyn , discussed with ID. # Acute diarrhea with hx of Cdiff, stool antigen is positive, continue oral vanco, id on the case. # H/o AAA. CT scan was reviewed with Dr. Saavedra. aneurysm in thoracic aorta which was read as 4 cm , is actually > 5 cm . has AAA in abdominal aorta as well. will consult dr. Rose to evaluate the patient. #Chronic Normocytic anemia: iron studies in June did not show evidence of iron def. B12 and folate were nl. SPEP with no M spike. # Hepatomegaly with anemia , and weight loss. MDS might needs to be r/o , heme consult appreciated # Weight loss: Unexplained. cannot r/o malignancy. TSH , was nl in 06/25. EGD with bx of duodenal ulcer showed chronic inflammation , colonoscopy was not performed # Heroin abuse. patient states that he is withdrawing and no signs of withdrawal at this time, detox protocol as per detox MD. # H/o HTN. BP on lower side. hold off on losartan /HCTZ Heparin sq patient wanted to leave AMA x 2 today but decided to stay.
[2018-12-29 20:11] LABS: HEMATOCRIT 26.3 % (35.4-49); HEMOGLOBIN 8.5 GM/dL (11.7-16.9); MCH 27.9 pg (25.7-33.7); MCHC 32.2 g/dl (32.0-35.9); MEAN CELL VOLUME 86.6 fl (80-96); PLATELET COUNT 510 K/MM3 (134-434); RBC 3.04 M/mm3 (4.00-5.60); RDW 16.3 % (11.9-15.9); WHITE BLOOD COUNT 9.1 K/mm3 (4.0-10.0)
[2018-12-29 20:24] LABS: INR 1.2 (0.83-1.09); PROTHROMBIN TIME (PATIENT) 14.2 SEC (9.7-13.0)
[2018-12-30] MEDS ORDERED: PIPERACILLIN/TAZOBACTAM 4.5 GM VIAL IVPB ONE (01:06)
[2018-12-30] MEDS ORDERED: DEXTROSE 5%-WATER 100 ML IVPB ONE (01:06)
[2018-12-30] MEDS: PIPERACILLIN/TAZOB 4.5 GM 4.5 GM in DEXTROSE 5%-WATER 100 ML IVPB SCH ×2 (01:30→10:14)
[2018-12-30] MEDS ORDERED: PT OWN MED DRAWER 7, Y5N ONE (05:06)
[2018-12-30] MEDS: HEPARIN NA (PORCINE) 5,000 UNITS/ML 1ML VIAL SQ SCH (06:04)
[2018-12-30] MEDS: VANCOMYCIN 250 MG/5 ML ORAL SOLUTION PO SCH (06:04)
[2018-12-30 06:22] VITALS: BP 101/75; PULSE 91; TEMP 97.6
[2018-12-30 07:24] LABS: MCH 28.5 pg (25.7-33.7); MCHC 33.4 g/dl (32.0-35.9); MEAN CELL VOLUME 85.2 fl (80-96); MEAN PLT VOLUME 7.1 fl (7.5-11.1); PLATELET COUNT 498 K/MM3 (134-434); RBC 2.82 M/mm3 (4.00-5.60); RDW 16.2 % (11.9-15.9); WHITE BLOOD COUNT 7.1 K/mm3 (4.0-10.0)
[2018-12-30 07:53] LABS: BLOOD UREA NITROGEN 11.6 mg/dL (7-18); CALCIUM 7.2 mg/dL (8.5-10.1); CREATININE 1.1 mg/dL (0.55-1.3); POTASSIUM 4.1 mmol/L (3.5-5.1)
[2018-12-30] MEDS ORDERED: METHADONE HCL 5 MG TABLET (FOR DETOX USE ONLY) PO ONE (10:00)
[2018-12-30] MEDS: NYSTATIN 100,000 UNIT/GM TOPICAL CREAM 15 GM TUBE TP SCH (10:14)
--- NOTE | 2018-12-30 10:22 | PN ---
Progress Note (short form) - Note Progress Note: Patient is feeling better,wants to leave against medical advice, the past 3 days wanted to leave against medical advice, discussed with him in details , patient is convinced that he should go home. was explained to him that he has a blood infection and he can develop infection of the heart, stoke, coma, heart attack and . Patient stated that he understands all that but yet wants to leave. Vital Signs Temperature 97.6 F 12/30/18 06:00 Pulse Rate 91 H 12/30/18 06:00 Respiratory Rate 18 12/30/18 09:00 Blood Pressure 101/75 12/30/18 06:00 O2 Sat by Pulse Oximetry (%) 100 12/30/18 09:00 GENERAL: The patient is awake, alert, and fully oriented, in no acute distress. HEAD: Normal with no signs of trauma. EYES: PERRL, extraocular movements intact, sclera anicteric, conjunctiva clear. ENT: Ears normal, oropharynx clear without exudates, moist mucous membranes. NECK: Trachea midline, full range of motion, supple. LUNGS: Breath sounds equal, clear to auscultation bilaterally, no wheezes, no crackles, no accessory muscle use. HEART: Regular rate and rhythm, S1, S2 without murmur, rub or gallop. ABDOMEN: Soft, mild tenderness , nondistended, normoactive bowel sounds, no guarding, no rebound, no hepatomegaly, no masses. EXTREMITIES: 2+ pulses, warm, well-perfused, no edema. NEUROLOGICAL: Cranial nerves II through XII grossly intact. Normal speech, gait not observed. PSYCH: Normal mood,flat affect SKIN: Warm, dry, normal turgor, no rashes or lesions noted CBCD WBC 7.1 K/mm3 (4.0-10.0) 12/30/18 06:12 RBC 2.82 M/mm3 (4.00-5.60) L 12/30/18 06:12 Hgb 8.0 GM/dL (11.7-16.9) L 12/30/18 06:12 Hct 24.0 % (35.4-49) L 12/30/18 06:12 MCV 85.2 fl (80-96) 12/30/18 06:12 MCHC 33.4 g/dl (32.0-35.9) 12/30/18 06:12 RDW 16.2 % (11.9-15.9) H 12/30/18 06:12 Plt Count 498 K/MM3 (134-434) H 12/30/18 06:12 MPV 7.1 fl (7.5-11.1) L 12/30/18 06:12 CMP Sodium 137 mmol/L (136-145) 12/30/18 06:12 Potassium 4.1 mmol/L (3.5-5.1) 12/30/18 06:12 Chloride 106 mmol/L (98-107) 12/30/18 06:12 Carbon Dioxide 26 mmol/L (21-32) 12/30/18 06:12 Anion Gap 5 MMOL/L (8-16) L 12/30/18 06:12 BUN 11.6 mg/dL (7-18) 12/30/18 06:12 Creatinine 1.1 mg/dL (0.55-1.3) 12/30/18 06:12 Random Glucose 82 mg/dL (74-106) 12/30/18 06:12 Calcium 7.2 mg/dL (8.5-10.1) L 12/30/18 06:12 Total Bilirubin 0.2 mg/dL (0.2-1) 12/29/18 06:18 AST 22 U/L (15-37) 12/29/18 06:18 ALT 12 U/L (13-61) L 12/29/18 06:18 Alkaline Phosphatase 239 U/L (45-117) H 12/29/18 06:18 Total Protein 5.6 g/dl (6.4-8.2) L 12/29/18 06:18 Albumin 1.1 g/dl (3.4-5.0) L 12/29/18 06:18 CARDIAC ENZYMES Troponin I < 0.02 ng/ml (0.00-0.05) 12/25/18 17:40 Current Medications Generic Name Dose Route Start Last Admin Trade Name Freq PRN Reason Stop Dose Admin Acetaminophen 650 mg 12/25/18 20:50 12/26/18 03:42 Tylenol - PO 650 mg Q4H PRN Administration FEVER Bisacodyl 20 mg 12/31/18 15:00 Dulcolax - PO 12/31/18 15:01 ONCE ONE Heparin Sodium (Porcine) 5,000 unit 12/26/18 06:00 12/30/18 06:04 Heparin - SQ 5,000 unit TID CHAITANYA Administration Potassium Chloride/Dextrose/Sod Cl 20 meq in 1,000 mls @ 100 mls/hr 12/26/18 19:00 12/29/18 22:13 D5-1/2ns+20 Meq Kcl - IV 100 mls/hr ASDIR CHAITANYA Administration Piperacillin Sod/Tazobactam 100 mls @ 200 mls/hr 12/29/18 18:30 12/30/18 10: 14 Sod 4.5 gm/ Dextrose IVPB Not Given Q8H-IV CHAITANYA Protocol Methadone HCl 5 mg 12/31/18 06:00 Dolophine - PO 12/31/18 06:01 ONCE ONE Nystatin 1 applic 12/26/18 22:00 12/30/18 10:14 Mycostatin Cream - TP Not Given BID CHAITANYA Polyethylene Glycol/Electrolytes 4,000 ml 12/31/18 16:00 Golytely Solution - PO 12/31/18 16:01 ONCE ONE Vancomycin HCl 125 mg 12/28/18 18:00 12/30/18 06:04 Vancomycin Oral Solution PO 125 mg Q6HPO CHAITANYA Administration Home Medications Medication Instructions Recorded Losartan 50Mg/Hctz 12.5MG [Hyzaar 50 mg PO DAILY 12/25/18 -] CTA: AAA 4.5cm at the level of diaghram, 4.5cm with aneurysm within midabdomen and 4.5cm aneurysm at the level of aortic bifurcation, there is dilatiation of the common iliac measuring 2.4cm and the left common iliac measuring 2.2cm. there is no evidence of dissection. Liver is 23.1 cm in craniocaudad dimension, no intrahepatic masses are identified. Microbiology 12/25/18 17:32 Blood - Peripheral Venous Blood Culture - Final Enterobacter Cloacae 12/25/18 17:32 Blood - Peripheral Venous Blood Culture - Preliminary NO GROWTH OBTAINED AFTER 72 HOURS, INCUBATION TO CONTINUE FOR 2 DAYS. 12/28/18 03:30 Stool Clostridioides difficile Antigen - Final 12/28/18 03:30 Stool Clostridioides difficile Toxin Assay - Final 12/25/18 21:07 Urine - Urine Clean Catch Urine Culture - Final NO GROWTH OBTAINED ASSESSMENT AND PLAN: Patient is a 63yo male with recent admission for C diff, Klebsiella bacteremia , heroin abuse, HTN, recent diagnosis of duodenal ulcer, aortic aneurysm, who presented to [facility] then was sent here due to cough and SOB. # Acute Leukocytosis: Ascencio cx was done, growing Enterobacter Cloacae sensitive to IV zosyn, continue IV zosyn , discussed with ID. # Acute diarrhea with hx of Cdiff, stool antigen is positive, continue oral vanco, id on the case. # H/o AAA. CT scan was reviewed with Dr. Saavedra. aneurysm in thoracic aorta which was read as 4 cm , is actually > 5 cm . has AAA in abdominal aorta as well. will consult dr. Rose to evaluate the patient. #Chronic Normocytic anemia: iron studies in June did not show evidence of iron def. B12 and folate were nl. SPEP with no M spike. # Hepatomegaly with anemia , and weight loss. MDS might needs to be r/o , heme consult appreciated # Weight loss: Unexplained. cannot r/o malignancy. TSH , was nl in 06/25. EGD with bx of duodenal ulcer showed chronic inflammation , colonoscopy was not performed # Heroin abuse. patient states that he is withdrawing and no signs of withdrawal at this time, detox protocol as per detox MD. # H/o HTN. BP on lower side. hold off on losartan /HCTZ Heparin sq Visit type - Emergency Visit Emergency Visit: Yes ED Registration Date: 12/25/18 Care time: The patient presented to the Emergency Department on the above date and was hospitalized for further evaluation of their emergent condition. - New Patient This patient is new to me today: No - Critical Care Critical Care patient: No - Discharge Referral Referred to [facility] Med P.C.: No
[2018-12-30 11:05] VITALS: BMI 16.3
[2018-12-31] MEDS ORDERED: METHADONE HCL 5 MG TABLET (FOR DETOX USE ONLY) PO ONE (06:00)
[2018-12-31] MEDS ORDERED: BISACODYL 5 MG TABLET.DR (FP) PO ONE (15:00)
[2018-12-31] MEDS ORDERED: PEG 3350/NA SULF BICARB CL/KCL 4000 ML SOLN.RECON PO ONE (16:00)
--- NOTE | 2019-01-01 17:50 | DS ---
Physical Exam: SUBJECTIVE: Patient seen and examined Pt states that he feels better and his breathing has improved. He is demanding detox and reports that detox given at the hospital is not enough. He requested for AMA but then decided to stay and then was discharged a day later, over the weekend. Pt is afebrile and asymptomatic. Denies f/c/n/v/d/sob/chest pain. OBJECTIVE: PHYSICAL EXAM GENERAL: The patient is awake, alert, and fully oriented, appears cachetic, EYES: PERRL, extraocular movements intact. Dry conjunctiva. No ptosis. Not well groomed NECK: full range of motion, supple. Right lower jaw swelling appreciated, likely LAD LUNGS: Breath sounds equal, clear to auscultation bilaterally, no wheezes, no crackles, HEART: Regular rate and rhythm, S1, S2 without murmur, rub or gallop. ABDOMEN: Soft, nontender, nondistended, normoactive bowel sounds, hepatomegaly is present, no masses. EXTREMITIES: 2+ pulses, warm, no edema. RUE: Hydradenitis- No discharge LUE: Hydradenitis- no discharge SKIN: Warm, dry skin, LABS Laboratory Results - last 24 hr 12/29/18 11:22 Blood Type A POSITIVE Antibody Screen Negative Crossmatch See Detail CBC,CMP WBC 7.1 K/mm3 (4.0-10.0) 12/30/18 06:12 RBC 2.82 M/mm3 (4.00-5.60) L 12/30/18 06:12 Hgb 8.0 GM/dL (11.7-16.9) L 12/30/18 06:12 Hct 24.0 % (35.4-49) L 12/30/18 06:12 MCV 85.2 fl (80-96) 12/30/18 06:12 MCH 28.5 pg (25.7-33.7) 12/30/18 06:12 MCHC 33.4 g/dl (32.0-35.9) 12/30/18 06:12 RDW 16.2 % (11.9-15.9) H 12/30/18 06:12 Plt Count 498 K/MM3 (134-434) H 12/30/18 06:12 MPV 7.1 fl (7.5-11.1) L 12/30/18 06:12 Absolute Neuts (auto) 13.0 K/mm3 (1.5-8.0) H 12/27/18 06:05 Neutrophils % 81.8 % (42.8-82.8) 12/27/18 06:05 Neutrophils % (Manual) 88.9 % (42.8-82.8) H 12/26/18 05:50 Band Neutrophils % 2.0 % 12/26/18 05:50 Lymphocytes % 10.7 % (8-40) D 12/27/18 06:05 Lymphocytes % (Manual) 2.0 % (8-40) L D 12/26/18 05:50 Monocytes % 6.8 % (3.8-10.2) 12/27/18 06:05 Monocytes % (Manual) 5 % (3.8-10.2) 12/26/18 05:50 Eosinophils % 0.4 % (0-4.5) D 12/27/18 06:05 Eosinophils % (Manual) 0.0 % (0-4.5) 12/26/18 05:50 Basophils % 0.3 % (0-2.0) 12/27/18 06:05 Basophils % (Manual) 0.0 % (0-2.0) 12/26/18 05:50 Myelocytes % (Man) 0 % (0-2) D 12/26/18 05:50 Promyelocytes % (Man) 0 % (0-2) 12/26/18 05:50 Blast Cells % (Manual) 0 % (0-0) 12/26/18 05:50 Nucleated RBC % 0 % (0-0) 12/27/18 06:05 Metamyelocytes 0 % (0-2) 12/26/18 05:50 Hypersegmented Neuts Few 12/25/18 15:56 Platelet Estimate Increased 12/26/18 05:50 Platelet Comment No clumping noted 12/25/18 17:40 Anisocytosis 1+ 12/26/18 05:50 ESR Cancelled 12/26/18 05:50 Retic Count 0.70 % (0.5-1.5) D 12/28/18 07:10 Haptoglobin 336 mg/dL (34-200) H 12/28/18 07:10 Sodium 137 mmol/L (136-145) 12/30/18 06:12 Potassium 4.1 mmol/L (3.5-5.1) 12/30/18 06:12 Chloride 106 mmol/L (98-107) 12/30/18 06:12 Carbon Dioxide 26 mmol/L (21-32) 12/30/18 06:12 Anion Gap 5 MMOL/L (8-16) L 12/30/18 06:12 BUN 11.6 mg/dL (7-18) 12/30/18 06:12 Creatinine 1.1 mg/dL (0.55-1.3) 12/30/18 06:12 Est GFR (CKD-EPI)AfAm 81.79 12/30/18 06:12 Est GFR (CKD-EPI)NonAf 70.57 12/30/18 06:12 Random Glucose 82 mg/dL (74-106) 12/30/18 06:12 Serum Osmolality 286 mosm/kg (278-305) 12/26/18 05:50 Lactic Acid 0.9 mmol/L (0.4-2.0) 12/25/18 23:00 Calcium 7.2 mg/dL (8.5-10.1) L 12/30/18 06:12 Phosphorus 4.3 mg/dL (2.5-4.9) 12/26/18 05:50 Magnesium 1.7 mg/dL (1.8-2.4) L 12/26/18 05:50 Iron 26 ug/dL (50-175) L 12/27/18 06:05 TIBC 82 ug/dL (250-450) L 12/27/18 06:05 Iron Saturation 31 % (17.5-39) 12/27/18 06:05 Unsaturated IBC 56 ug/dL (200-275) L 12/27/18 06:05 Ferritin 367.7 ng/ml (8-388) 12/27/18 06:05 Total Bilirubin 0.2 mg/dL (0.2-1) 12/29/18 06:18 GGT 137 U/L (5-85) H 12/28/18 07:10 AST 22 U/L (15-37) 12/29/18 06:18 ALT 12 U/L (13-61) L 12/29/18 06:18 Alkaline Phosphatase 239 U/L (45-117) H 12/29/18 06:18 LD Total 101 U/L (87-246) 12/28/18 07:10 Troponin I < 0.02 ng/ml (0.00-0.05) 12/25/18 17:40 C-Reactive Protein 5.9 MG/DL (0.00-0.3) H 12/29/18 06:18 B-Natriuretic Peptide 1287.5 pg/ml (5-125) H 12/25/18 17:40 Total Protein 5.6 g/dl (6.4-8.2) L 12/29/18 06:18 Total Protein (PEP) 6.4 g/dL (6.0-8.5) 12/26/18 05:35 Albumin 1.1 g/dl (3.4-5.0) L 12/29/18 06:18 Albumin (PEP) 1.6 gm/dl (2.9-4.4) L 12/26/18 05:35 Globulin 4.8 g/dL (2.2-3.9) H 12/26/18 05:35 Albumin/Globulin Ratio 0.3 (0.7-1.7) L 12/26/18 05:35 Qdpgd-1-Yxlvwhwis (%) 1.1 % (.) 12/26/18 12:55 Nqklw-8-Bpeudyqcz (%) 14.0 % (.) 12/26/18 12:55 Beta Globulins 0.8 gm/dL (0.7-1.3) 12/26/18 05:35 Beta Globulins (%) 26.6 % (.) 12/26/18 12:55 Gamma Globulins (%) 42.7 % (.) 12/26/18 12:55 M-Aydin % Not observed % (Not Observed) 12/26/18 12:55 Lipase 90 U/L (73-393) 12/27/18 06:05 Carcinoembryonic Ag 2.8 ng/mL (0.0-4.7) 12/27/18 06:05 CA 19-9 Antigen 61 U/mL (0-35) H 12/27/18 06:05 Vitamin B12 664 pg/ml (193-986) 12/27/18 06:05 Serum Folate 8 ng/mL (3.1-17.5) 12/27/18 06:05 TSH 1.10 uIU/ml (0.358-3.74) D 12/26/18 05:50 Home Medications Medication Instructions Recorded Losartan 50Mg/Hctz 12.5MG [Hyzaar 50 mg PO DAILY 12/25/18 -] Microbiology 12/29/18 06:12 Blood - Peripheral Venous Blood Culture - Preliminary NO GROWTH OBTAINED AFTER 72 HOURS, INCUBATION TO CONTINUE FOR 2 DAYS. 12/29/18 06:18 Blood - Peripheral Venous Blood Culture - Preliminary NO GROWTH OBTAINED AFTER 72 HOURS, INCUBATION TO CONTINUE FOR 2 DAYS. 12/25/18 17:32 Blood - Peripheral Venous Blood Culture - Final NO GROWTH AFTER 5 DAYS INCUBATION 12/25/18 17:32 Blood - Peripheral Venous Blood Culture - Final Enterobacter Cloacae 12/28/18 03:30 Stool Clostridioides difficile Antigen - Final 12/28/18 03:30 Stool Clostridioides difficile Toxin Assay - Final 12/25/18 21:07 Urine - Urine Clean Catch Urine Culture - Final NO GROWTH OBTAINED HOSPITAL COURSE: Date of Admission:12/25/18 63 y/o M, pmh of thoracic and abdominal aortic aneurysm dx at [facility] in june of 2018, right femur surgery 2 years ago, COPD, HTN presented for sob of 1 week duration is admitted for leukocytosis, w/ source unknown. After starting pt on Abx, his leukocytosis resolved. On imaging, he was found to have multiple aortic aneurysm widely distributed along his aorta. He was also found ot have a grossly enlarged liver, gall bladder and scarring in the lungs. Surgery and GI were both on the case and performed a MRCP. But pt refused imaging and all other tests from then on. He was treated empirically w/ abx and discharged over the weekend. He also completed Methadone taper at the hospital which he did not find was enough for him. CT shows dilated Gallbladder, hepatomegaly and scarring in b/l lungs. US abdomen- distended GB 12.2cm, hepatomegaly 22.4cm, AAA 4.5cm, pancreatic duct mildly dilated 3.7cm EKG sinus tachy #Leukocytosis, source unknown PE is evident for hydradenitis b/l w/ left draining purulent discharge Leukocytosis now resolved Switched to Unasyn and vanc C- Diff positive for antigen but negative for toxin MRCP ordered- pt refused- will try again Colonoscopy planned for Tuesday #AAA As per Dr. Saavedra, thoracic aortic aneurysm is actually > 5cm #Anemia- normocytic #Elevated ALP #Cachexia/weight loss unexplained likely 2/2 to malignancy EGD in past showed chronic inflammation #Heroin abuse Detox physician consulted Dr. Macdonald- we appreciate the consult Methadone taper started 15 mg Methadone today, 10 mg tomorrow and 5mg the day after Date of Discharge: 01/01/19 Minutes to complete discharge: 35 Discharge Summary Problems reviewed: Yes Reason For Visit: LEUKOCYTOSIS, HYPOTENSION,DEHYDRATION Condition: Improved - Instructions Referrals: Guevara Ybarra [Other] Disposition: AGAINST MEDICAL ADVICE - Home Medications Comprehensive Discharge Medication List: Ambulatory Orders Losartan 50Mg/Hctz 12.5MG [Hyzaar -] 50 mg PO DAILY 12/25/18 This patient is new to me today: Yes Date on this admission: 01/01/19 Emergency Visit: Yes ED Registration Date: 12/25/18 Care time: The patient presented to the Emergency Department on the above date and was hospitalized for further evaluation of their emergent condition. Critical Care patient: No - Discharge Referral Referred to [facility] Med P.C.: No ATTENDING PHYSICIAN STATEMENT I saw and evaluated the patient. I reviewed the resident's note and discussed the case with the resident. I agree with the resident's findings and plan as documented. SUBJECTIVE: OBJECTIVE: ASSESSMENT AND PLAN:
== END 2018-12-30 11:07 | disposition left against medical advice (07) | DRG 724 ==
LOC: JER 15:30 → JERBED 20:15 → J4W 12-26 18:15
PROVIDERS: ADMIT Internal Medicine; ATTEND Internal Medicine
PROC: 30233N1 Transfusion of Nonautologous Red Blood Cells into Peripheral Vein, Percutaneous Approach (ICD-10-PCS; principal; 2018-12-29)
DX: R78.81 Bacteremia (principal); J44.9 Chronic obstructive pulmonary disease, unspecified; I10 Essential (primary) hypertension; D72.829 Elevated white blood cell count, unspecified; R00.0 Tachycardia, unspecified; R16.0 Hepatomegaly, not elsewhere classified; J43.9 Emphysema, unspecified; R62.7 Adult failure to thrive; Z68.1 Body mass index [BMI] 19.9 or less, adult; E87.1 Hypo-osmolality and hyponatremia; I95.9 Hypotension, unspecified; I71.2 Thoracic aortic aneurysm, without rupture; R64 Cachexia; R19.7 Diarrhea, unspecified; D47.3 Essential (hemorrhagic) thrombocythemia; D64.9 Anemia, unspecified; E43 Unspecified severe protein-calorie malnutrition; E86.0 Dehydration; F11.20 Opioid dependence, uncomplicated; R63.4 Abnormal weight loss; K26.9 Duodenal ulcer, unspecified as acute or chronic, without hemorrhage or perforation
CPT/HCPCS: 36415; 36430; 36511; 71045-TC-FY; 71275-TC; 74177-TC; 76700-TC; 80048; 80053; 80074; 80307; 81003; 82272; 82378; 82436; 82607; 82728; 82746; 82803; 82977; 83010; 83540; 83550; 83605; 83615; 83690; 83735; 83880; 83930; 83935; 84100; 84155; 84156; 84157; 84165; 84300; 84443; 84484; 85025; 85027; 85044; 85610; 85730; 86140; 86301; 86480; 86850; 86900; 86901; 86922; 87040; 87086; 87186; 87324; 87389; 87449; 93005; 93010; 99285-25; J0131; J1644; J7030; P9038; P9058

== ENCOUNTER 2020-09-02 09:57 | Inpatient (IN) | payer OTHER ==
[2020-09-02 10:05] VITALS: TEMP 98; BMI 12.6
[2020-09-02 11:30] LABS: BASO % 0.2 % (0-2.0); EOS % 0.6 % (0-4.5); HEMATOCRIT 27.9 % (35.4-49); HEMOGLOBIN 8.8 GM/dL (11.7-16.9); LYMPH % 16.6 % (8-40); MCH 26.3 pg (25.7-33.7); MCHC 31.6 g/dl (32.0-35.9); MEAN CELL VOLUME 83.2 fl (80-96); MEAN PLT VOLUME 6.9 fl (7.5-11.1); MONO % 9.1 % (3.8-10.2); NEUT % 73.5 % (42.8-82.8); PLATELET COUNT 317 10^3/uL (134-434); RBC 3.35 M/mm3 (4.00-5.60); RDW 18.9 % (11.9-15.9); WHITE BLOOD COUNT 12.1 K/mm3 (4.0-10.0)
[2020-09-02 11:51] LABS: CALCIUM 7.8 mg/dL (8.5-10.1)
[2020-09-02 11:52] LABS: ALBUMIN 2.1 g/dl (3.4-5.0); BLOOD UREA NITROGEN 16.6 mg/dL (7-18)
[2020-09-02 11:55] LABS: CREATININE 1.5 mg/dL (0.55-1.3); PHOSPHOROUS 2.6 mg/dL (2.5-4.9)
[2020-09-02 11:56] LABS: BILIRUBIN,TOTAL 0.2 mg/dL (0.2-1); TOT PROT 7.7 g/dl (6.4-8.2)
[2020-09-02 15:07] LABS: HIV INTERPRETATION NEGATIVE (NEGATIVE)
[2020-09-02 23:33] VITALS: BP 110/72; PULSE 86
== END 2020-09-02 23:34 | disposition short-term general hospital (02) | DRG 300 ==
LOC: JER 09:57 → JERBED 20:13
PROVIDERS: ADMIT Internal Medicine; ATTEND Internal Medicine
DX: I71.4 Abdominal aortic aneurysm, without rupture (principal); R64 Cachexia; Z68.1 Body mass index [BMI] 19.9 or less, adult; F11.20 Opioid dependence, uncomplicated; N17.9 Acute kidney failure, unspecified; I72.2 Aneurysm of renal artery; I10 Essential (primary) hypertension; R62.7 Adult failure to thrive; D72.829 Elevated white blood cell count, unspecified; F17.210 Nicotine dependence, cigarettes, uncomplicated
CPT/HCPCS: 36415; 71250-TC; 74176-TC; 80053; 83735; 84100; 85025; 85730; 87389; 93005; 93010; 99285-25